=== PATIENT | male | born 1935 | race Caucasian/White ===

== ENCOUNTER 2024-05-09 20:25 | Outpatient (REF) | payer SELFPAY ==
[2024-05-10 07:29] LABS: Appearance Urine Clear; Color Urine Yellow; Glucose Urine UA Negative (Negative); Leukocyte Esterase Urine Negative (Negative); Nitrite Urine Negative (Negative); Urine Blood Negative (Negative); Urine Ketones Negative (Negative); Urine Protein Negative (Neg-Trace)
== END 2024-05-09 20:26 ==
LOC: HO.HSH3W 20:25
PROVIDERS: Visit Provider Internal Medicine Endocrinology, Diabetes & Metabolism
DX: R41.82 Altered mental status, unspecified (principal)
CPT/HCPCS: 81003

== ENCOUNTER 2024-05-10 06:56 | Outpatient (REF) | payer SELFPAY ==
[2024-05-10 07:03] LABS: MANUAL DIFF FLAG NO
[2024-05-10 07:38] LABS: Basophils Absolute Auto 0.1 X10*3/uL (0.0-0.2); Eosinophils Absolute Auto 0.3 X10*3/uL (0.0-0.4); Eosinophils Percent Auto 4.4 % (0-4); Hematocrit 37.9 % (42.0-52.0); Imm Gran Abs Auto 0.02 X10*3/uL (0.00-0.03); Imm Gran Pct Auto 0.3 % (0.0-0.4); Lymphocytes Absolute Auto 1.8 X10*3/uL (1.2-4.9); Lymphocytes Percent Auto 24.2 % (20-40); Mean Corpuscular HGB Conc 34.3 g/dl (31.0-36.0); Mean Corpuscular Hemoglobin 31.7 pg (27.0-33.0); Mean Corpuscular Volume 92.4 fL (80.0-98.0); Mean Platelet Volume 9.6 fL (9.4-12.4); Monocytes Absolute Auto 0.8 X10*3/uL (0.1-1.2); Monocytes Percent Auto 10.2 % (2-11); Neutrophils Absolute Auto 4.4 x10*3/uL (2.0-8.3); Neutrophils Percent Auto 59.9 % (45-73); Platelet Count 197 X10*3/uL (160-400); Red Cell Distribution Width 13.2 % (11.0-16.0); White Blood Count 7.4 X10*3/uL (4.8-10.8)
[2024-05-10 07:54] LABS: Alanine Aminotransferase 11 U/L (0-40); Albumin Level 3.6 g/dL (3.5-5.0); Alkaline Phosphatase 81 U/L (39-117); Anion Gap 12 (12-20); Aspartate Amino Transferase 17 U/L (5-37); Bilirubin Total 0.8 mg/dL (0.0-1.0); Blood Urea Nitrogen 10 mg/dL (9-16); Carbon Dioxide 24 mmol/L (22-29); Chloride 105 mmol/L (96-108); Cholesterol 115 mg/dL (<200); Estimated Glomerular Filt Rate > 60; Glucose Random 90 mg/dL (60-115); HDL Cholesterol 41 mg/dL (>40); LDL Cholesterol Calculated 62 mg/dL (<100); Potassium 3.9 mmol/L (3.3-5.1); Sodium 137 mmol/L (135-145); Total Protein 6.1 g/dL (6.5-8.0); Triglycerides 64 mg/dL (<150)
[2024-05-10 08:13] LABS: Prostate Specific Antigen 19.69 ng/mL (<0.05-4.0)
== END 2024-05-10 06:57 | disposition home or self-care (01) ==
LOC: HO.HSH3W 06:56
PROVIDERS: Visit Provider Internal Medicine Endocrinology, Diabetes & Metabolism
DX: Z12.5 Encounter for screening for malignant neoplasm of prostate (principal); Z13.6 Encounter for screening for cardiovascular disorders; M19.90 Unspecified osteoarthritis, unspecified site
CPT/HCPCS: 36415; 80053; 80061; 84153; 85025

== ENCOUNTER 2024-10-26 10:15 | Outpatient (REF) | payer MEDICARE, SELFPAY ==
--- NOTE | ~2024-10-26 | CT_ITS ---
EXAMINATION: CT LUMBAR SPINE WITHOUT CONTRAST CLINICAL INFORMATION: Low back pain. COMPARISON: None available. TECHNIQUE: Spiral CT imaging of the lumbar spine performed in axial plane without contrast. Multiplanar reformatted images were constructed from the axial data set. This CT examination was performed using dose optimization techniques as appropriate, variously including the following: *Automated exposure control *Adjustment of mA and/or kV according to patient size (this includes techniques or standardized protocols for targeted exams where dose is matched to indication/reason for exam; i.e. extremities or head) *Use of iterative reconstruction technique FINDINGS: There is a minimal right convex scoliosis, apex at L2. There is mild straightening of the normal lordosis. There is diffuse osteopenia. Severe compression deformity of L1, chronic, with approximately 80% loss of height, and 5 mm retropulsion of bone into the central canal. This results in mild central canal narrowing. There is kyphoplasty cement in the ventral vertebral body. L2 is intact and normal in stature. L3 demonstrates an acute appearing superior endplate compression fracture, with loss of height approximately 80% centrally, and approximately 40% at the level of the anterior and posterior endplates. There is approximately 4 mm of retropulsion of bone from the superior endplate into the central canal resulting in mild to moderate central canal stenosis. L4 demonstrates an acute appearing compression fracture with approximately 30% loss of height centrally and dorsally. There is approximately 4 mm of retropulsion of bone of the superior endplate into the central canal, resulting in moderate central canal stenosis. L5 demonstrates a minimal 10% superior endplate compression deformity, chronic. There is kyphoplasty cement within the vertebral body. Severe degenerative disc changes are present throughout the lumbar region with disc vacuum phenomenon at L2-3, L4-5, and L5-S1. There is normal facet alignment, with hypertrophic degenerative facet changes present notably at L3-S1 left greater than right. There is severe right and moderate left neural foraminal narrowing at L5-S1. CT/CT lumbar spine wo IV con IMPRESSION: 1. Acute superior endplate compression deformities of L3 and L4, with approximately 80% loss of height centrally at L3, and 30% at L4 centrally. There is mild retropulsion of the superior endplates into the central canal, resulting in mild to moderate central canal stenosis at L3, and moderate central canal stenosis at L4. 2. Chronic compression deformities of L1 and L5 with kyphoplasty cement present. 3. Osteopenia. 4. Degenerative spondylosis as detailed. Electronically signed by: Gary Gómez MD 10/26/2024 01:56 PM [facility]
--- OUTSIDE RECORDS SUMMARY | 2024-10-26 11:11 | XMS_ITS | Encounter Summary ---
Author Organization [facility] Address [address] [facility] 7 [place] [address] Care Team Providers Care Manager Revenue Name Role Phone Unavailable Primary Care Provider Unavailabl e Encounter Details Date Type Department Care Team (Late st Contact Info) Description 10/10/2024 2:00 PM EST Office Visit [facility] D[facility] [address] [place] [address] Mita Williamson [address] [place] [address] Social History Tobacco Use Types Packs/Day Years Used Date Smoking Tobacco: Unknown Tobacco Cessation:Counseling Given: Not Answered Alcohol Use Standard Drinks/Week Comments Defer 0 (1 standard drink = 0.6 oz pur e alcohol) Sex and Gender Information Value Date Recorded Sex Assigned at Male 08/31/2024 3:13 PM EST Legal Sex Male 3:12 PM EST Gender Identity Male 08/31/2024 3:13 PM EST Sexual Orientation Straight 08/31/2024 3: 13 PM EST documented as of this encounter Progress Notes * Mita Williamson - 10/10/2024 2:00 PM EST Pt did not show up for appointment. Called upstairs at 12:10 to see if patient was coming to his appointment and nurse stated that he was at music downstairs and would try and bring him downstairs. 5minutes later nurse came down to tell us Mr. Brown did not want to come to his appointment today. Will reschedule for another day Mita Williamson RDH documented in this encounter Plan of Treatment Upcoming Encounters Date Type Department Care Team (Late st Contact Info) Description 10/31/2024 11:00 AM EST Office Visit [facility] [address] [place] [address] Fredy Soliz DMD [address] [place] [address] documented as of this encounter Visit Diagnoses Not on filedocumented in this encounter
--- OUTSIDE RECORDS SUMMARY | 2024-10-26 11:11 | XMS_ITS | Clinical Summary ---
Author Organization [facility] Address [address] [facility] [address] [place] [address] Care Team Providers Care Reimbursement Director Name Role Phone Unavailable Primary Care Provider Unavailabl e Allergies No known active allergies Medications lactulose (Chronulac) 10 GM/15ML solution 10 g. 05/09/2024 Ac tive simvastatin (Zocor) 40 MG tablet 40 mg. 06/04/2024 Active alendronate (Fosamax) 70 MG tablet 70 mg. 06/25/2024 Active metoprolol succinate XL (Toprol-XL) 25 MG 24 hr tablet 25 mg. 06/25/2024 Act milady Eliquis 2.5 MG tablet 07/07/2024 Active cholecalciferol (Vitamin D-3) 25 MCG (1000 UT) capsule Take 1,000 Units by mouth Once per day. Active Encounters Date Type Department Care Team Description 10/10/2024 2:00 PM EST Office Visit [facility] DENTAL [address] [place], [place] [phone] Mita Williamson from Last 3 Months Social History Tobacco Use Types Packs/Day Years [...] Orientation Straight 08/31/2024 3: 13 PM EST Plan of Treatment Upcoming Encounters Date Type Department Care Team (Late st Contact Info) Description 10/31/2024 11:00 AM EST Office Visit [facility] DENTAL [address] [place], [place] [phone] Fredy Soliz, DMD [address] [place], [place] [phone] Health Maintenance Due Date Last Done Comments Dental Oral Exam 1937 Dental Prophylaxis 1937 Dental X-Ray: Bitewings 1937 Dental X-Ray: Full Mouth 1937 Depression Screening 1937 Lipid Panel 1937 SDOH Screening 1937 Alcohol/Substance Use Screening 1949 DTaP/Tdap/Td Vaccines (1 - Tdap) 1956 Pneumococcal Vaccine: 50+ Ye ars (1 of 1 - PCV) 12/24/1987 Zoster Vaccines (1 of 2) 12/24/1987 RSV Patients and Pa tients Aged 60 years or older (1 - 1-dose 75+ series) 2012 COVID-19 Vaccine ( - 2023-2 5 season) 2024 Influenza Vaccine (#1) 2024 Tobacco Screening 10/10/2025 10/10/2024 HIB Vaccines Aged Out No longer eligi ble based on patient's age to complete this topic HPV Vaccines Aged Out No longer eligi ble based on patient's age to complete this topic Hepatitis A Vaccines Aged Out No long er eligible based on patient's age to complete this topic Hepatitis B Vaccines Aged Out No long er eligible based on patient's age to complete this topic IPV Vaccines Aged Out No longer eligi ble based on patient's age to complete this topic Meningococcal Vaccine Aged Out No randall barbie eligible based on patient's age to complete this topic RSV under 20 months Aged Out No longe r eligible based on patient's age to complete this topic Rotavirus Vaccines Aged Out No longer eligible based on patient's age to complete this topic
== END 2024-10-26 10:16 | disposition home or self-care (01) ==
LOC: HO.CT 10:15
PROVIDERS: PCP Nurse Practitioner; Visit Provider Nurse Practitioner
DX: M54.50 Low back pain, unspecified (principal)
CPT/HCPCS: 72131

== ENCOUNTER → 2024-10-26 10:28 | Outpatient (BNV) | payer MEDICARE, SELFPAY | PROVIDERS: PCP Nurse Practitioner; Visit Provider Radiology Diagnostic Radiology | DX: S32.050A Wedge compression fracture of fifth lumbar vertebra, initial encounter for closed fracture (principal); S32.010A Wedge compression fracture of first lumbar vertebra, initial encounter for closed fracture; M85.88 Other specified disorders of bone density and structure, other site | CPT/HCPCS: 72131 ==

== ENCOUNTER 2024-11-28 13:00 | Outpatient (REF) | payer MEDICARE, SELFPAY ==
--- NOTE | ~2024-11-28 | CT_ITS ---
CLINICAL HISTORY: POST FALL CT pelvis without contrast Comparison: None Findings: No acute fracture or dislocation. Status post kyphoplasty of L5. The coccyx is angulated anteriorly. Anterior/superior subluxation of the 4th coccygeal segment relative to the 3rd by up to 6 mm, age indeterminate. Decreased bone mineralization. No osseous lesion. Bmsj-ir-ttdavmgn degenerative change. There is no joint effusion. There is no fluid collection. Mild symmetric muscular atrophy. The musculature is normal in attenuation. Severe calcified atherosclerotic disease. No acute intrapelvic pathology. Colonic diverticulosis. Impression: No acute findings. This document has been electronically signed by: Anila Newman MD on 11/29/2024 16:01:52
--- NOTE | ~2024-11-28 | CT_ITS ---
CLINICAL HISTORY: post fall CT left hip without contrast Comparison: None Findings: No fracture or dislocation. No osseous lesion. Dumf-hk-pzamufri degenerative change. There is no joint effusion. There is no fluid collection. Nchl-qd-xwwmlrcr muscular atrophy. No definitive abnormal attenuation in the musculature. Severe calcified atherosclerotic disease. Impression: No acute findings. This document has been electronically signed by: Anila Newman MD on 11/29/2024 16:07:52
--- OUTSIDE RECORDS SUMMARY | 2024-11-28 15:24 | XMS_ITS | Encounter Summary ---
Author Organization [facility] Address [address] [facility] 7 [place] [address] Care Team Providers Care Olive Pitter Name Role Phone Unavailable Primary Care Provider Unavailabl e Reason for Visit * Reason Comments Dental Exam Encounter Details Date Type Department Care Team (Late st Contact Info) Description 10/31/2024 11:00 AM EST Office Visit [facility] D[facility]AL [address] [place] [address] Fredy Soliz DMD [address] [place] [address] Social History Tobacco Use Types Packs/Day Years Used Date Smoking Tobacco: Unknown Alcohol Use Standard Drinks/Week Comments Defer 0 (1 standard drink = 0.6 oz pur e alcohol) Sex and Gender Information Value Date Recorded Sex Assigned at Male 08/31/2024 3:13 PM EST Legal Sex Male 3:12 PM EST Gender Identity Male 08/31/2024 3:13 PM EST Sexual Orientation Straight 08/31/2024 3: 13 PM EST documented as of this encounter Progress Notes * Fredy Soliz DMD - 10/31/2024 11:00 AM EST C/C: dental exam I.O.E: erythematous and edematous gingiva, gen plaque and calculus accumulation, severe broken and carious tooth#13 E.O.E: wnl OCS: wnl Head and neck: wnl Radiographic: gen moderate periodontal bone loss, severe carious tooth#13 Dx: gen chronic moderate periodontitis, 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 Tx: prophy, recall exam, exo#13 Pt does not want to have prophy and exo #13 at this time Brennon documented in this encounter Plan of Treatment Scheduled Orders Name Type Priority Associated Diagnoses Orde r Schedule 13 13 EXTRACTION, ERUPTED TOOTH OR EXPOSED ROOT (ELEVATION/FORCEPS REMOVAL) Dental Routine st arting 10/31/2024 documented as of this encounter Procedures Procedure Name Priority Date/Time Associated Diagnosis Comments INTRAORAL - COMPLETE SERIES OF RADIOGRAPHIC IMAGES Routine 10/31/2024 11:00 AM EST COMPREHENSIVE ORAL EVALUATION - NEW OR ESTABLISHED PATIENT Routine 10/31/2024 11:00 AM EST 10 PREFABRICATED POST AND CORE IN ADDITION TO CROWN Routine 10/31/2024 12:00 AM EST 8 PREFABRICATED POST AND CORE IN ADDITION TO CROWN Routine 10/31/2024 12:00 AM EST 3 PREFABRICATED POST AND CORE IN ADDITION TO CROWN Routine 10/31/2024 12:00 AM EST 19 CROWN - FULL CAST HIGH FOX METAL Routine 10/31/2024 12:00 AM EST 31 CROWN - FULL CAST HIGH FOX METAL Routine 10/31/2024 12:00 AM EST 30 CROWN - FULL CAST HIGH FOX METAL Routine 10/31/2024 12:00 AM EST 12 MOD COMPOSITE FILLING Routine 025 12:00 AM EST 28 O AMALGAM FILLING Routine 10/31/2024 12:00 AM EST 21 DO AMALGAM FILLING Routine 10/31/2024 12:00 AM EST 20 DO AMALGAM FILLING Routine 10/31/2024 12:00 AM EST 15 O AMALGAM FILLING Routine 10/31/2024 12:00 AM EST 14 MOD AMALGAM FILLING Routine 12:00 AM EST 4 MOD AMALGAM FILLING Routine 10/31/2024 12:00 AM EST 2 O AMALGAM FILLING Routine 10/31/2024 1 2:00 AM EST 10 FIXED PARTIAL DENTURE - ABUTMENT CROWN Routine 10/31/2024 12:00 AM EST 8 FIXED PARTIAL DENTURE - ABUTMENT CROWN Routine 10/31/2024 12:00 AM EST 9 FIXED PARTIAL DENTURE - PONTIC Routine 10/31/2024 12:00 AM EST 10 ROOT CANAL Routine 10/31/2024 12:00 AM EST 8 ROOT CANAL Routine 10/31/2024 12:00 AM EST 3 ROOT CANAL Routine 10/31/2024 12:00 AM EST 29 PFM CROWN Routine 10/31/2024 12:00 AM EST 7 PFM CROWN Routine 10/31/2024 12:00 AM EST 3 PFM CROWN Routine 10/31/2024 12:00 AM EST documented in this encounter Visit Diagnoses Not on filedocumented in this encounter
--- OUTSIDE RECORDS SUMMARY | 2024-11-28 15:24 | XMS_ITS | Clinical Summary ---
Author Organization [facility] Address [address] [place] [address] [address] [place] [address] Care Team Providers Care Business Communications Instructor Name Role Phone Unavailable Primary Care Provider [...] Encounters Date Type Department Care Team Description 10/31/2024 11:00 AM EST Office Visit [facility] DENTAL [address] [place] [phone] Fredy Soliz DMD 10/10/2024 2:00 PM EST Office Visit [facility] DENT[facility] [address] [place] [phone] Mita Williamson from Last 3 Months Social [...] 3: 13 PM EST Plan of Treatment Health Maintenance Due Date Last Done Comments Dental Prophylaxis 1937 Depression Screening 1937 Lipid Panel 1937 SDOH Screening 1937 Alcohol/Substance Use Screening 1949 DTaP/Tdap/Td Vaccines (1 - Tdap) 1956 Pneumococcal Vaccine: 50+ Ye ars (1 of 1 - PCV) 12/24/1987 Zoster Vaccines (1 of 2) 12/24/1987 RSV Patients and Pa tients Aged 60 years or older (1 - 1-dose 75+ series) 2012 COVID-19 Vaccine (1 - 2023-2 5 season) 2024 Influenza Vaccine (#1) 2024 Dental Oral Exam 05/01/2025 10/31/2024 Tobacco Screening 10/31/2025 10/31/2024 Dental X-Ray: Bitewings 11/01/2025 10/31/2024 Dental X-Ray: Full Mouth 11/01/2027 10/31/2024 HIB Vaccines Aged Out No longer eligi [...] on patient's age to complete this topic Procedures Procedure Name Priority Date/Time Associated Diagnosis Comments INTRAORAL - COMPLETE SERIES OF RADIOGRAPHIC IMAGES Routine 10/31/2024 11:00 AM EST COMPREHENSIVE ORAL EVALUATION - NEW OR ESTABLISHED PATIENT Routine 10/31/2024 11:00 AM EST 29 PFM CROWN Routine 10/31/2024 12:00 AM EST 28 O AMALGAM FILLING Routine 10/31/2024 12:00 AM EST 21 DO AMALGAM FILLING Routine 10/31/2024 12:00 AM EST 20 DO AMALGAM FILLING Routine 10/31/2024 12:00 AM EST 19 CROWN - FULL CAST HIGH FOX METAL Routine 10/31/2024 12:00 AM EST 15 O AMALGAM FILLING Routine 10/31/2024 12:00 AM EST 14 MOD AMALGAM FILLING Routine 12:00 AM EST 12 MOD COMPOSITE FILLING Routine 025 12:00 AM EST 10 PREFABRICATED POST AND CORE IN ADDITION TO CROWN Routine 10/31/2024 12:00 AM EST 8 PREFABRICATED POST AND CORE IN ADDITION TO CROWN Routine 10/31/2024 12:00 AM EST 10 ROOT CANAL Routine 10/31/2024 12:00 AM EST 8 ROOT CANAL Routine 10/31/2024 12:00 AM EST 7 PFM CROWN Routine 10/31/2024 12:00 AM EST 4 MOD AMALGAM FILLING Routine 10/31/2024 12:00 AM EST 10 FIXED PARTIAL DENTURE - ABUTMENT CROWN Routine 10/31/2024 12:00 AM EST 8 FIXED PARTIAL DENTURE - ABUTMENT CROWN Routine 10/31/2024 12:00 AM EST 9 FIXED PARTIAL DENTURE - PONTIC Routine 10/31/2024 12:00 AM EST 31 CROWN - FULL CAST HIGH FOX METAL Routine 10/31/2024 12:00 AM EST 30 CROWN - FULL CAST HIGH FOX METAL Routine 10/31/2024 12:00 AM EST 3 PREFABRICATED POST AND CORE IN ADDITION TO CROWN Routine 10/31/2024 12:00 AM EST 3 PFM CROWN Routine 10/31/2024 12:00 AM EST 3 ROOT CANAL Routine 10/31/2024 12:00 AM EST 2 O AMALGAM FILLING Routine 10/31/2024 1 2:00 AM EST from Last 3 Months
--- OUTSIDE RECORDS SUMMARY | 2024-11-28 15:24 | XMS_ITS | Patient Health Record ---
Author Organization [facility] Address [address] [address] Support Name Relationship Address Phone RUBY HORVATH Guarantor Unknown [phone] Allergies No Known Allergies Reason For Referral No Information Social History Tobacco Use: Social History Observation Description Date Details (start date - stop date) Former Smoker NA - NA Smoking Question Answer Notes Are you a: former smoker Section Notes: Former smoker Former smoker Former smoker Former smoker Problems Problem Type SNOMED Code ICD Code Onset Dates Problem Status W/U Status Risk Notes Problem [id number] Essential hypert ension (I10) Active confirmed Problem 948992898 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) Active confirmed Problem 04814157 Hypercholesterol emia (E78.00) Active confirmed Plan Of Treatment No Information Insurance Providers Payer Name Payer Address Payer Phone Subscriber Number Group Number Insured Name Patient Relationship to Insured Coverage Start Date Coverage End Date [facility] [employer] Plan [address] [place] [address] [id number] RUBY HORVATH Self - patient is the insured Safety Insurance [address] [address] [place] [address] [id number] RUBY HORVATH Self - patient is the insured Medical (General) History Medical History History ICD Code atrial fibrillation, hypertension, glauc dimas
== END 2024-11-28 13:01 | disposition home or self-care (01) ==
LOC: HO.CT 13:00
PROVIDERS: PCP Nurse Practitioner; Visit Provider Orthopaedic Surgery
DX: G89.11 Acute pain due to trauma (principal)
CPT/HCPCS: 72192; 73700

== ENCOUNTER → 2024-11-28 13:16 | Outpatient (BNV) | payer MEDICARE, SELFPAY | PROVIDERS: PCP Nurse Practitioner; Visit Provider Radiology Diagnostic Radiology | DX: G89.11 Acute pain due to trauma (principal); M16.0 Bilateral primary osteoarthritis of hip; M62.59 Muscle wasting and atrophy, not elsewhere classified, multiple sites | CPT/HCPCS: 72192; 73700 ==

== ENCOUNTER 2024-12-02 23:39 | Inpatient (IN) | payer OTHER, SELFPAY ==
--- NOTE | ~2024-12-02 | CT_ITS ---
CLINICAL HISTORY: dyspnea CT chest without contrast Comparison: None Findings: The heart size is normal. There is a sliding-type hiatal hernia with fluid in the esophagus up to the level of the thoracic inlet, possible reflux. The visualized thyroid and mediastinum are are otherwise unremarkable. There is bilateral consolidation, possible pneumonia or pulmonary edema. The visualized upper abdomen is unremarkable. The bones are intact. IMPRESSION: 1. Bilateral consolidation, differential considerations. 2. Sliding-type hiatal hernia with high-level high volume gastroesophageal reflux. This document has been electronically signed by: Phuc Anderson MD on 12/03/2024 05:20:19
--- NOTE | ~2024-12-02 | XR_ITS ---
CLINICAL HISTORY: dyspnea ?chf 1 view chest x-ray. Comparison: CT/SR - CT CHEST WO IV CON - 12/03/24 04:17 EDT CR - XR CHEST 1V - 12/03/24 00:35 EDT Findings: This examination is mildly limited by multiple structures overlying the patient. Ill-defined mixed interstitial/alveolar opacities are redemonstrated throughout the bilateral lungs, not significantly changed in appearance as compared to the prior exams. The heart size is borderline enlarged. No pneumothorax or significant pleural effusion identified. Impression: 1. Mixed interstitial/alveolar opacities redemonstrated throughout the bilateral lungs, not significantly changed in appearance as compared to the prior exams, possibly related to multifocal infection or pulmonary edema. Clinical correlation is advised. 2. Borderline cardiomegaly This document has been electronically signed by: Mihir Beckett MD on 12/04/2024 03:50:56
--- NOTE | ~2024-12-02 | XR_ITS ---
CLINICAL HISTORY: sob, bilateral rales 1 view chest x-ray Comparison: None Findings: Increased interstitial lung markings in both lungs. No effusion or pneumothorax. Mild cardiomegaly. No acute fracture. IMPRESSION: Bilateral increased interstitial lung markings which could be due to pulmonary edema, interstitial lung disease or infection. This document has been electronically signed by: Azeem Cortez MD on 12/03/2024 01:41:30
[2024-12-02 23:44] VITALS: O2SAT 92
[2024-12-02 23:47] VITALS: BP 121/77; PULSE 83; RESP 20; TEMP 36.8; O2SAT 89; BMI 19.7
[2024-12-02 23:55] VITALS: BP 121/77; PULSE 83; RESP 20; TEMP 36.8; O2SAT 89
--- NOTE | 2024-12-02 23:56 | ECG_ITS ---
Test Reason : SOB Blood Pressure : */* mmHG Vent. Rate : 102 BPM Atrial Rate : * BPM P-R Int : * ms QRS Dur : 88 ms QT Int : 348 ms P-R-T Axes : * -58 36 degrees QTcB Int : 453 ms Atrial fibrillation with rapid ventricular response with a competing junctional pacemaker with premature ventricular or aberrantly conducted complexes Left axis deviation Nonspecific ST abnormality Abnormal ECG No previous ECGs available Referred By: Chelita Chris Electronically Signed By: TRISTON LEUNG MD
--- NOTE | 2024-12-02 23:57 | ED_ITS ---
HPI - SOB/Dyspnea General Chief Complaint: Dyspnea Stated Complaint: SOB Time Seen by Provider: 12/02/24 23:44 Source: EMS Mode of arrival: EMS Limitations: other History of Present Illness ED Provider: Dr. Chelita Chris HPI Narrative: [facility] shortness of breath. According to the staff, patient was found to be oxygenating 89% on room air. Patient does not use oxygen at baseline, patient does not have history of asthma or COPD. Not oxygen dependent. Patient was put on 2 L of oxygen and O2 increased to 94%. Patient denies any chest pain or shortness of breath, patient states that he feels well. According to EMS, the staff at the correction did not report any fever. Patient is poor historian, can not give significant history, but states that he feels well. Related Data Allergies Allergy/AdvReac Type Severity Reaction Status Date / Time No Known Allergies Allergy Verified 12/02/24 23:55 Review of Systems 2 Review of Systems: Yes Other ( Poor historian) [facility] Past Medical History Medical History Hx of retirement use of blood thinners Prostate cancer Macular degeneration Hyperlipidemia Osteoporosis Hypertension Atrial fibrillation with RVR Social History Social History Smoked in Last 30 Days: No Use of substances other than those prescribed or required for medical reasons: No Advance Directives: No Advance Directives Information Provided: No Do you have a plan to hurt others: No Plan Physical Exam 2 Vital Signs: Vital Signs: Last Vital Signs Temp 98.3 F 12/02/24 23:55 Pulse 83 12/02/24 23:55 Resp 20 12/02/24 23:55 BP 121/77 12/02/24 23:55 Pulse Ox 89 L 12/02/24 23:55 O2 Del Method Room Air 12/02/24 23:55 BMI result Body Mass Index 19.7 Const: Other: Appearance: Alert. Oriented X1. No acute distress. Eyes: Pupils equal, round and reactive to light. ENT: Pharynx normal. Neck: Normal inspection. Neck supple. No lymph nodes noted. No crepitus CVS: Normal heart rate and rhythm. Pulses normal. Normal S1 and S2 Respiratory: No respiratory distress. bilateral rales, no wheezing Abdomen: Soft and nontender. No rigidity. No distention. Skin: Skin warm and dry. Normal skin color. Normal skin turgor. Extremities: No lower extremity edema. No Lacerations. No Rash Neuro: Oriented X 1. No motor deficit. No sensory deficit. Moving all extremities. No slurred speech. CN 2 through 12 grossly intact Psych: calm, cooperative, normal affect Course Course Course Narrative: on arrival, patient's oxygen saturation 89% on room air. Patient on 2 L of oxygen. On physical exam, patient has bilateral rales, patient receiving empirically IV fluids, ceftriaxone and azithromycin, No history of CHF per patient's paperwork from the correction All of patient's labs and imaging pending. Medications Administered Discontinued Medications Generic Name Dose Route Start Last Admin Trade Name Freq PRN Reason Stop Dose Admin Ceftriaxone Sodium 1 gm 12/02/24 23:55 12/03/24 00:25 Ceftriaxone Sodium 1 Gm Vial IVPUSH 12/02/24 23:56 1 gm ONCE ONE Administration Sodium Chloride 2,000 mls @ 999 mls/hr 12/02/24 23:55 12/03/24 00:37 Ns IVCONT 12/03/24 01:55 999 mls/hr .Q2H1M ONE Administration Azithromycin 500 mg/ Sodium 250 mls @ 125 mls/hr 12/02/24 23:55 12/03/24 00:36 Chloride IV 12/03/24 01:54 125 mls/hr ONCE ONE Administration Medical Decision Making Medical Decision Making [facility] Narrative: my interpretation of EKG: Atrial fibrillation, heart rate 102, no ST segment depression or elevation, occasional PVCs, QTC 453. It was noted that patient's oxygen saturation is 89% on room air. Patient is not oxygen dependent. No history of asthma or COPD. My interpretation of labs: Patient's white blood cell count 19.1, no significant chemistry abnormality, normal LFTs, normal troponin, BNP 366, no previous labs for comparison. Magnesium 2.0. Venous blood gases within normal limits. Lactic acid 1.2, serology negative. At this time, 01:51, chest x-rays have returned, possible pulmonary edema versus congestion versus pneumonia On arrival, patient received IV fluids, IV antibiotics, azithromycin and ceftriaxone. Patient does not have history of CHF. However, based on lab findings with the BNP above 300 in chest x-ray showed will possible vascular congestion, it is possible that patient may have a new diagnosis. patient's oxygen saturation 89% on room air, improves to mid 90s on 2 L I was informed by the patient's nurse that so far the patient has received 1 L of fluids. The 2 L has not started yet. We will go ahead and stop there. patient was given a small dose of Lasix, 10 mg IV Patient has not had any episodes of hypotension, no fever, normal lactic acid, normal LFTs and creatinine. Sepsis is not suspected. Differential Diagnosis Differential Diagnoses: The differential diagnosis associated with the presentation includes ( pneumonia, CHF, viral syndrome) Admission/Observation Consideration of admission/observation: Escalation of care including admission/observation considered Consult Healthcare Provider Management of the patient was discussed with: Hospitalist Lab Data MDM Lab Attestation statement: I reviewed the patient's lab results. 12/03/24 00:04 12/03/24 00:04 Labs: Lab Results 12/03/24 12/03/24 12/03/24 Range/Units 00:04 00:28 00:53 WBC 19.1 H (4.8-10.8) X10*3/uL RBC 3.97 L (4.60-5.80) X10*6/uL Hgb 12.5 L (14.0-18.0) g/dl Hct 36.4 L (42.0-52.0) % MCV 91.7 (80.0-98.0) fL MCH 31.5 (27.0-33.0) pg MCHC 34.3 (31.0-36.0) g/dl RDW 14.1 (11.0-16.0) % Plt Count 275 D (160-400) X10*3/uL MPV 8.5 L (9.4-12.4) fL Immature Gran % (Auto) 0.6 H (0.0-0.4) % Neut % (Auto) 90.8 H (45-73) % Lymph % (Auto) 2.4 L (20-40) % [place] % (Auto) 6.0 (2-11) % Eos % (Auto) 0.0 (0-4) % Baso % (Auto) 0.2 (0-2) % Lymph # (Auto) 0.5 L (1.2-4.9) X10*3/uL [place] # (Auto) 1.1 (0.1-1.2) X10*3/uL Eos # (Auto) 0.0 (0.0-0.4) X10*3/uL Baso # (Auto) 0.0 (0.0-0.2) X10*3/uL Abs Immat Gran (auto) 0.12 H (0.00-0.03) X10*3/uL Absolute Neuts (auto) 17.4 H (2.0-8.3) x10*3/uL Absolute Nucleated RBC 0.000 (0.0-0.012) X10*3/uL Nucleated RBC % (auto) 0.0 (0.0-0.2) /100WBC Smear Tech's Comments VERIFIED VBG pH 7.41 (7.32-7.43) VBG pCO2 33 mmHg VBG pO2 74 mmHg VBG HCO3 21 L (22-26) mmol/L VBG O2 Saturation 96.0 % VBG Base Excess -2.2 mmol/L Sodium 135 (135-145) mmol/L Potassium 4.1 (3.3-5.1) mmol/L Chloride 105 (96-108) mmol/L Carbon Dioxide 21 L (22-29) mmol/L Anion Gap 13 (12-20) BUN 18 H (9-16) mg/dL Creatinine 0.63 (0.5-1.4) mg/dL Estim Creat Clear Calc 78.3 Estimated GFR > 60 Random Glucose 116 H (60-115) mg/dL Lactic Acid 1.2 (0.5-2.0) mmol/L Calcium 8.7 (8.4-10.2) mg/dL Magnesium 2.0 (1.6-2.6) mg/dL Total Bilirubin 1.5 H (0.0-1.0) mg/dL Direct Bilirubin 0.5 (0.0-0.5) mg/dL AST 22 (5-37) U/L ALT 9 (0-40) U/L Alkaline Phosphatase 128 H (39-117) U/L Troponin I High Sens 7.6 (<3.5-35.0) ng/L B-Natriuretic Peptide 366 H (<100) pg/mL Total Protein 7.4 (6.5-8.0) g/dL Albumin 4.0 (3.5-5.0) g/dL Influenza Type A (PCR) NEGATIVE (Negative) Influenza Type B (PCR) NEGATIVE (Negative) RSV RNA Qual (PCR) NEGATIVE (Negative) SARS-CoV-2 RNA (RT-PCR) NEGATIVE (Negative) Independent Interpretation I performed an independent interpretation of an: EKG and Plain X-Ray Radiology Impression Discussion of test interpretation with radiology: I have reviewed the radiologist's reading. Critical Care Time Critical Care Time Critical Care Time: Yes Total Critical Care Time: 60 Attestation: I have personally provided critical care time. Time includes review of lab data, radiology results, discussion with consultants, and monitoring for potential decompensation. Intervention performed as documented. Discharge Plan Discharge Clinical Impression: New onset of congestive heart failure, Pneumonia Patient Disposition: Admitted As Inpatient Print Language: Ecuadorean
[2024-12-03] MEDS: cefTRIAXone sodium 1 GM VIAL IVPUSH (00:25)
[2024-12-03 00:36] LABS: Lactic Acid 1.2 mmol/L (0.5-2.0)
[2024-12-03] MEDS: Azithromycin 500 MG in 0.9 % Sodium Chloride 250 ML 125 MG IV ×2 (00:36→20:44)
[2024-12-03 00:37] LABS: Alanine Aminotransferase 9 U/L (0-40); Alkaline Phosphatase 128 U/L (39-117); Anion Gap 13 (12-20); Aspartate Amino Transferase 22 U/L (5-37); Bilirubin Direct 0.5 mg/dL (0.0-0.5); Bilirubin Total 1.5 mg/dL (0.0-1.0); Blood Urea Nitrogen 18 mg/dL (9-16); Calcium 8.7 mg/dL (8.4-10.2); Carbon Dioxide 21 mmol/L (22-29); Chloride 105 mmol/L (96-108); Creatinine Clr Calc Pharmacy 78.3; Estimated Glomerular Filt Rate > 60; Glucose Random 116 mg/dL (60-115); Potassium 4.1 mmol/L (3.3-5.1); Sodium 135 mmol/L (135-145); Total Protein 7.4 g/dL (6.5-8.0)
[2024-12-03] MEDS: 0.9 % Sodium Chloride 2,000 ML 999 ML IVCONT (00:37)
[2024-12-03 00:40] LABS: B Type Natriuretic Peptide 366 pg/mL (<100); Troponin-I High Sensitivity 7.6 ng/L (<3.5-35.0)
[2024-12-03 00:56] LABS: Venous Blood Gas Refer to POC result
[2024-12-03 00:57] LABS: VBG Base Excess -2.2 mmol/L; VBG HCO3 21 mmol/L (22-26); VBG pCO2 33 mmHg; VBG pH 7.41 (7.32-7.43); VBG pO2 74 mmHg
--- NOTE | 2024-12-03 01:07 | PC.NURSE ---
labs delayed. lab contacted. vials sent not received per lab. new vials sent
[2024-12-03 01:08] LABS: Basophils Percent Auto 0.2 % (0-2); Hematocrit 36.4 % (42.0-52.0); Hemoglobin 12.5 g/dl (14.0-18.0); Imm Gran Abs Auto 0.12 X10*3/uL (0.00-0.03); Imm Gran Pct Auto 0.6 % (0.0-0.4); Lymphocytes Absolute Auto 0.5 X10*3/uL (1.2-4.9); Lymphocytes Percent Auto 2.4 % (20-40); MANUAL DIFF FLAG SCAN; Mean Corpuscular HGB Conc 34.3 g/dl (31.0-36.0); Mean Corpuscular Hemoglobin 31.5 pg (27.0-33.0); Mean Corpuscular Volume 91.7 fL (80.0-98.0); Mean Platelet Volume 8.5 fL (9.4-12.4); Monocytes Absolute Auto 1.1 X10*3/uL (0.1-1.2); Neutrophils Absolute Auto 17.4 x10*3/uL (2.0-8.3); Neutrophils Percent Auto 90.8 % (45-73); Platelet Count 275 X10*3/uL (160-400); Red Blood Count 3.97 X10*6/uL (4.60-5.80); Red Cell Distribution Width 14.1 % (11.0-16.0); SCAN SMEAR FLAG 1; White Blood Count 19.1 X10*3/uL (4.8-10.8)
[2024-12-03 01:11] LABS: Influenza A PCR NEGATIVE (Negative); Influenza B PCR NEGATIVE (Negative); Resp Syncy Virus RNA Qual PCR NEGATIVE (Negative); SARS COV2 PCR INHOUSE NEGATIVE (Negative)
[2024-12-03 01:33] LABS: SLIDE REVIEW VERIFIED
[2024-12-03 02:18] VITALS: BP 122/75
[2024-12-03] MEDS: Furosemide 20 MG/2 ML VIAL 10 MG IVPUSH (02:18)
[2024-12-03 02:19] VITALS: BP 129/60; PULSE 104; RESP 16; O2SAT 95
--- NOTE | 2024-12-03 05:54 | P.HPHOSP_ITS ---
History of Present Illness Date of Service: 12/03/24 Attending physician on admission: Miranda Rosenthal Chief Complaint: SOB, AMS Patient is an 88-year-old male with a past medical history significant for prostate cancer, HLD, HTN and chronic AFib, who presented to the ED due to shortness of breath and [facility] He reported his oxygen saturations in the 80s on room air. No fever, chills, nausea or vomiting. The patient is very hard of hearing and also altered therefore his history was difficult to obtain. He denies any LE edema, abdominal pain or urinary symptoms including frequency, urgency or dysuria. He states overall he is feeling well. Review of Systems 2 Constitutional: Constitutional: Denies chills, Denies fatigue, Denies fever(s) and Denies headache(s) Eyes: Eyes: Denies change in vision and Denies photophobia ENT: Denies headache(s), Denies nasal congestion and Denies nasal discharge Cardiovascular: Cardiovascular: Denies chest pain, Denies rapid heart rate, Denies leg edema, Denies lightheadedness and Reports dyspnea Respiratory: Respiratory: Denies chest congestion, Denies cough, Reports dyspnea and Denies wheezing Gastrointestinal: Gastrointestinal: Denies diarrhea, Denies nausea and Denies vomiting Genitourinary: Genitourinary: Denies difficulty urinating, Denies dysuria and Denies urinary urgency Musculoskeletal: Musculoskeletal: Denies myalgias Integumentary/Breasts: Skin/Breast: Denies rash Neurologic: Reports confusion and Denies headache(s) Psychiatric: Psychiatric: Reports confusion Endocrine: Endocrine: Denies fatigue Hematologic/Lymphatic: Hematologic/Lymphatic: Denies easy bleeding and Denies easy bruising Allergic/Immunologic: Allergic/Immunologic: Denies wheezing [facility] Medical History Hx of shelter use of blood thinners Prostate cancer Macular degeneration Hyperlipidemia Osteoporosis Hypertension Atrial fibrillation with RVR Social History Smoked in Last 30 Days: No Use of substances other than those prescribed or required for medical reasons: No Advance Directives: No Advance Directives Information Provided: No Do you have a plan to hurt others: No Plan Meds Allergies Allergy/AdvReac Type Severity Reaction Status Date / Time No Known Allergies Allergy Verified 12/02/24 23:55 Active Medications: Current Medications Acetaminophen (Acetaminophen 325 Mg Tablet) 650 mg PO Q6H PRN PRN Reason: Pain, Mild 1-3,fever,headache Benzonatate (Benzonatate 100 Mg Capsule) 100 mg PO TID PRN PRN Reason: Cough Calcium Carbonate (Calcium Carbonate 750 Mg Tab.Chew) 750 mg PO Q4H PRN PRN Reason: Heartburn Ceftriaxone Sodium (Ceftriaxone Sodium 1 Gm Vial) 1 gm IVPUSH Q24H KRISTOFER Azithromycin 500 mg/ Sodium (Chloride) 250 mls @ 125 mls/hr IV Q24H KRISTOFER Magnesium Hydroxide (Milk Of Magnesia 30 Ml Oral.Susp) 30 ml PO DAILY PRN PRN Reason: Constipation Melatonin (Melatonin 3 Mg Tablet) 6 mg PO BEDTIME PRN PRN Reason: Insomnia Ondansetron HCl (Ondansetron Hcl 4 Mg/2 Ml Vial) 4 mg IVPUSH Q8H PRN PRN Reason: Nausea and Vomiting Sodium Chloride (0.9 % Sodium Chloride Flush 3 Ml Syringe) 3 ml IVFLUSH QSHIFT [facility] Physical Exam 2 Vital Signs and Narrative: Vital Signs: Last Vital Signs Temp 98.3 F 12/02/24 23:55 Pulse 104 H 12/03/24 02:19 Resp 16 12/03/24 02:19 BP 129/60 12/03/24 02:19 Pulse Ox 2 L 12/03/24 02:19 O2 Del Method Nasal Cannula 12/03/24 02:19 O2 Flow Rate 2 12/03/24 02:19 BMI result Body Mass Index 19.7 General: A not oriented to place or time, no acute distress Resp: rhonchorus bilaterally with crackles bilaterally, no wheezing CVS:regular rate, irregular rhythm GI: +BS, NT, no distention Skin: Warm, dry Neuro: Cranial nerves II-XII grossly intact bilaterally. Motor grossly intact bilaterally Extremities: No LE edema Psych: Appropriate affect Const: General: confusion Orientation/consciousness: confusion Eyes: Direct Ophthalmoscopy: No photophobia Neuro: General: confusion Results Labs 12/03/24 05:58 12/03/24 00:04 Labs: Laboratory Results - last 24 hr 12/03/24 12/03/24 12/03/24 00:04 00:28 00:53 MCV 91.7 MCH 31.5 MCHC 34.3 RDW 14.1 Plt Count 275 D MPV 8.5 L Immature Gran % (Auto) 0.6 H Neut % (Auto) 90.8 H Lymph % (Auto) 2.4 L [place] % (Auto) 6.0 Eos % (Auto) 0.0 Baso % (Auto) 0.2 Lymph # (Auto) 0.5 L [place] # (Auto) 1.1 Eos # (Auto) 0.0 Baso # (Auto) 0.0 Abs Immat Gran (auto) 0.12 H Absolute Neuts (auto) 17.4 H Absolute Nucleated RBC 0.000 Nucleated RBC % (auto) 0.0 Smear Tech's Comments VERIFIED VBG pH 7.41 VBG pCO2 33 VBG pO2 74 VBG HCO3 21 L VBG O2 Saturation 96.0 VBG Base Excess -2.2 Anion Gap 13 Estim Creat Clear Calc 78.3 Estimated GFR > 60 Random Glucose 116 H Lactic Acid 1.2 Calcium 8.7 Magnesium 2.0 Total Bilirubin 1.5 H Direct Bilirubin 0.5 AST 22 ALT 9 Alkaline Phosphatase 128 H B-Natriuretic Peptide 366 H Total Protein 7.4 Albumin 4.0 Influenza Type A (PCR) NEGATIVE Influenza Type B (PCR) NEGATIVE RSV RNA Qual (PCR) NEGATIVE SARS-CoV-2 RNA (RT-PCR) NEGATIVE Assessment and Plan (1) Acute hypoxic respiratory failure: Status: Acute (2) Pneumonia: Status: Acute (3) Metabolic encephalopathy: Status: Acute Plan Patient is an 88-year-old male with a past medical history significant for prostate cancer, HLD, HTN and chronic AFib, who presented to the ED due to shortness of breath and [facility]. Acute hypoxic respiratory failure and metabolic encephalopathy secondary to pneumonia - WBC 19.2, mild tachycardia secondary to chronic AFib, lactic acid normal, blood cultures x2 pending, not sepsis - chest x-ray with edema versus infection bilaterally - chest CT again with bilateral consolidation, possible pneumonia or pulmonary edema - troponin negative - EKG with AFib with RVR, rate 102 - COVID/flu/RSV negative - BNP 366, no lower extremity edema - given 1L NS in ED followed by 10mg IV lasix after results back indicating more likely infectious than new onset CHF - started on ceftriaxone and azithromycin, continue - monitor CBC and BMP Chronic AFib - EKG with RVR, rate 102 as above - continue metoprolol 25mg daily and Eliquis 2.5 mg BID HLD - continue statin HTN - continue metoprolol and lisinopril Med rec not complete upon admission Full code VTE prophylaxis: Eliquis Patient with acute hypoxic respiratory failure and metabolic encephalopathy secondary to pneumonia, requiring admission for at least 2 midnight stay for IV antibiotics and monitoring. Quality Stroke Does the patient have a stroke diagnosis?: No VTE Prior VTE?: No VTE Risk Level:: Medical - moderate - high VTE Device Contraindication: Treatment Not Indicated VTE Drug Contraindication: N/A - Med Ordered
[2024-12-03 06:01] LABS: MANUAL DIFF FLAG NO
[2024-12-03 06:04] LABS: Basophils Percent Auto 0.2 % (0-2); Hematocrit 37.1 % (42.0-52.0); Hemoglobin 12.9 g/dl (14.0-18.0); Imm Gran Abs Auto 0.14 X10*3/uL (0.00-0.03); Imm Gran Pct Auto 0.7 % (0.0-0.4); Lymphocytes Absolute Auto 1.1 X10*3/uL (1.2-4.9); Lymphocytes Percent Auto 5.3 % (20-40); Mean Corpuscular HGB Conc 34.8 g/dl (31.0-36.0); Mean Corpuscular Hemoglobin 32.2 pg (27.0-33.0); Mean Corpuscular Volume 92.5 fL (80.0-98.0); Mean Platelet Volume 8.7 fL (9.4-12.4); Monocytes Percent Auto 4.8 % (2-11); Neutrophils Absolute Auto 18.2 x10*3/uL (2.0-8.3); Platelet Count 285 X10*3/uL (160-400); Red Blood Count 4.01 X10*6/uL (4.60-5.80); Red Cell Distribution Width 14.5 % (11.0-16.0); White Blood Count 20.5 X10*3/uL (4.8-10.8)
[2024-12-03 06:13] LABS: Anion Gap 14 (12-20); Blood Urea Nitrogen 16 mg/dL (9-16); Calcium 8.2 mg/dL (8.4-10.2); Carbon Dioxide 21 mmol/L (22-29); Chloride 106 mmol/L (96-108); Creatinine Clr Calc Pharmacy 78.3; Estimated Glomerular Filt Rate > 60; Glucose Random 130 mg/dL (60-115); Sodium 137 mmol/L (135-145)
[2024-12-03 06:22] VITALS: TEMP 37.6
--- NOTE | 2024-12-03 06:30 | PC.NURSE ---
med list faxed to pharmacy by sr community manager
--- NOTE | 2024-12-03 07:27 | PHA.MEDREC ---
Pharmacy Consult ? Medication Reconciliation Pharmacy has completed the medication reconciliation. Utilized list from [facility].
--- NOTE | 2024-12-03 07:39 | PC.NURSE ---
status update on patient provided to pt's son (sayda) at this time.
--- NOTE | 2024-12-03 09:22 | MHC.CM.PN ---
CM attempted to meet with Patient at bedside, in the ED, but Patient was not able to respond appropriately to CM's questions. CM called Primary Contact/Son/Jesus @ [phone] and addressed IMM with him (the original will be mailed certified letter to Jesus and a copy will be placed on the chart). Patient is a LTC Resident of [facility] and returning there is the goal at time of dc. CM has initiated and will follow for dc planning. Patient will require BLS transport at dc.
--- NOTE | 2024-12-03 11:45 | PC.NURSE ---
Report received from GAEL Gordon. Taken over care at this time.
--- NOTE | 2024-12-03 12:44 | P.PNIM_ITS ---
Subjective Subjective Date of Service: 12/04/24 Interval History: f/u on acute hypoxic resp failure due pneumonia likely aspriation type, he's confused somnolent, overnight, he became more hypoxix, CXR and BNP suggestive of pulmonary edema and given IV Lasix, he failed swallow eval yesterday with overt signs of aspiration Physical Exam 2 Vital Signs: Vital Signs: Last Vital Signs Temp 99.6 F 12/03/24 06:22 Pulse 104 H 12/03/24 02:19 Resp 16 12/03/24 02:19 BP 129/60 12/03/24 02:19 Pulse Ox 95 12/03/24 02:19 O2 Del Method Nasal Cannula 12/03/24 02:19 O2 Flow Rate 1 12/03/24 02:19 BMI result Body Mass Index 19.7 Const: Other: General: minimally responsive, confused, Resp: rales at bases CVS: S1,S2,RRR GI: +BS, NT, no distention Skin: No rash Neuro: no deficit Psych: flat affect Objective Data Active Medications Acetaminophen (Acetaminophen 325 Mg Tablet) 650 mg PO Q6H PRN PRN Reason: Pain, Mild 1-3,fever,headache Benzonatate (Benzonatate 100 Mg Capsule) 100 mg PO TID PRN PRN Reason: Cough Calcium Carbonate (Calcium Carbonate 750 Mg Tab.Chew) 750 mg PO Q4H PRN PRN Reason: Heartburn Ceftriaxone Sodium (Ceftriaxone Sodium 1 Gm Vial) 1 gm IVPUSH Q24H KRISTOFER Azithromycin 500 mg/ Sodium (Chloride) 250 mls @ 125 mls/hr IV Q24H KRISTOFER Magnesium Hydroxide (Milk Of Magnesia 30 Ml Oral.Susp) 30 ml PO DAILY PRN PRN Reason: Constipation Melatonin (Melatonin 3 Mg Tablet) 6 mg PO BEDTIME PRN PRN Reason: Insomnia Ondansetron HCl (Ondansetron Hcl 4 Mg/2 Ml Vial) 4 mg IVPUSH Q8H PRN PRN Reason: Nausea and Vomiting Sodium Chloride (0.9 % Sodium Chloride Flush 3 Ml Syringe) 3 ml IVFLUSH QSHIFT [facility] Last Admin: 12/03/24 07:29 Dose: Not Given Documented By: ADALBERTO Non-Admin Reason: Patient Asleep Labs 12/04/24 03:13 12/04/24 03:13 Labs: Laboratory Results - last 24 hr 12/03/24 12/03/24 12/03/24 00:04 00:28 00:53 MCV 91.7 MCH 31.5 MCHC 34.3 RDW 14.1 Plt Count 275 D MPV 8.5 L Immature Gran % (Auto) 0.6 H Neut % (Auto) 90.8 H Lymph % (Auto) 2.4 L [place] % (Auto) 6.0 Eos % (Auto) 0.0 Baso % (Auto) 0.2 Lymph # (Auto) 0.5 L [place] # (Auto) 1.1 Eos # (Auto) 0.0 Baso # (Auto) 0.0 Abs Immat Gran (auto) 0.12 H Absolute Neuts (auto) 17.4 H Absolute Nucleated RBC 0.000 Nucleated RBC % (auto) 0.0 Smear Tech's Comments VERIFIED VBG pH 7.41 VBG pCO2 33 VBG pO2 74 VBG HCO3 21 L VBG O2 Saturation 96.0 VBG Base Excess -2.2 Anion Gap 13 Estim Creat Clear Calc 78.3 Estimated GFR > 60 Random Glucose 116 H Lactic Acid 1.2 Calcium 8.7 Magnesium 2.0 Total Bilirubin 1.5 H Direct Bilirubin 0.5 AST 22 ALT 9 Alkaline Phosphatase 128 H B-Natriuretic Peptide 366 H Total Protein 7.4 Albumin 4.0 Influenza Type A (PCR) NEGATIVE Influenza Type B (PCR) NEGATIVE RSV RNA Qual (PCR) NEGATIVE SARS-CoV-2 RNA (RT-PCR) NEGATIVE 12/03/24 05:58 MCV 92.5 MCH 32.2 MCHC 34.8 RDW 14.5 Plt Count 285 MPV 8.7 L Immature Gran % (Auto) 0.7 H Neut % (Auto) 89.0 H Lymph % (Auto) 5.3 L [place] % (Auto) 4.8 Eos % (Auto) 0.0 Baso % (Auto) 0.2 Lymph # (Auto) 1.1 L [place] # (Auto) 1.0 Eos # (Auto) 0.0 Baso # (Auto) 0.0 Abs Immat Gran (auto) 0.14 H Absolute Neuts (auto) 18.2 H Absolute Nucleated RBC 0.000 Nucleated RBC % (auto) 0.0 Smear Tech's Comments VBG pH VBG pCO2 VBG pO2 VBG HCO3 VBG O2 Saturation VBG Base Excess Anion Gap 14 Estim Creat Clear Calc 78.3 Estimated GFR > 60 Random Glucose 130 H Lactic Acid Calcium 8.2 L Magnesium Total Bilirubin Direct Bilirubin AST ALT Alkaline Phosphatase B-Natriuretic Peptide Total Protein Albumin Influenza Type A (PCR) Influenza Type B (PCR) RSV RNA Qual (PCR) SARS-CoV-2 RNA (RT-PCR) Assessment and Plan (1) Chronic a-fib: Status: Acute (2) Pneumonia: Status: Acute (3) Acute hypoxic respiratory failure: Status: Acute Plan Patient is an 88-year-old male with a past medical history significant for prostate cancer, HLD, HTN and chronic AFib, who presented to the ED due to shortness of breath and [facility]. Acute hypoxic respiratory failure and metabolic encephalopathy secondary to pneumonia and Heart failure, wbc 19 now 17 was oon ceftriaxone and Azithro, Ceftriaxone changed to Zosyn, continue monitoring wbc, GEAR INSPECTOR following Acute on chronic heart failure given IV lasix overnight echo requestest follow i/o, bmp Chronic AFib continue metoprolol eliquis if able to take po HLD continue statin HTN, BP on normal side, can resume oral metoprolol and lisinopril when taking meds by mouth if excessively high then IV meds Prognosis is guarded, discussed with son over the phone, he will be available in person for [facility] of care conversation Full code VTE prophylaxis: John obando Quality Stroke Does the patient have a stroke diagnosis?: No VTE Prior VTE?: No VTE Risk Level:: Medical - moderate - high VTE Device Contraindication: Treatment Not Indicated VTE Drug Contraindication: N/A - Med Ordered
[2024-12-03] MEDS: Apixaban 2.5 MG TABLET PO (13:53)
--- NOTE | 2024-12-03 13:55 | PC.NURSE ---
medicated the pt with his Eliquis pt choked on the water, coughing and needed to be suctioned, hospitalist aware of this event float rn
[2024-12-03 14:53] VITALS: PULSE 118; RESP 24; TEMP 36.5; O2SAT 89
--- NOTE | 2024-12-03 15:03 | PC.NURSE ---
Pt. changed and positioned sitting up in bed at this time. Pt. linen and gown changed. Assisted by entry level installation technician.
--- NOTE | 2024-12-03 15:10 | MHC.SL.SWA ---
Speech Pathologist Impression: Significant pharyngeoesophageal dysphagia, mild oral phase dysphagia. Suggest GI consultation. Risk of Aspiration Due to: Reduced Cognition Dysphasia Diet Status: Liquid Consistency and Strategies for Safe Swallow: Liquid Intake Recommendation: NPO Liquid Intake Strategies: Solid Food Consistency: Dietary Recommendations: NPO Additional Modifications to Solid Foods: Oral Medication Intake: NPO Please contact the pharmacy regarding appropriate crushable or liquid drug formulations that are available whenever modified delivery is recommended. Compensatory Strategies and Precautions to be Taken for Safe Swallow: Supervision While Eating and Drinking for Safe Swallow: PO with [employer] Foods to Avoid: Swallowing Recommended Treatments: Compens. Strategy Educat. Recommendation for Speech: Inpatient Speech Therapy Comment: Admission dx: 'Acute hypoxic respiratory failure and metabolic encephalopathy secondary to pneumoniam'. Pt unable to tolerate PO trials of water/[place] d/t immediate regurgitation of material/mucous. [employer] following closely, will re-assess as appropriate Frequency/Duration: Daily M-F Date Range for Service Req: Timeline to reassess: Neuropsychiatric Aide Clinican/Clinical Fellow: No Supervisory Statement: I have reviewed and agree with the student/clinical fellow's documentation: N/A Speech Language Pathologist: Denise Kahn M.S., CCC-[employer]
[2024-12-03] MEDS: Piperacillin Sodium/Tazobactam 4.5 GM in 0.9 % Sodium Chloride 100 ML IV ×2 (15:40→23:13)
[2024-12-03] MEDS: 0.9 % Sodium Chloride Flush 3 ML SYRINGE IVFLUSH (16:48)
--- NOTE | 2024-12-03 19:53 | PC.NURSE ---
Spoke to discharge specialist, that pt. has been AMS since RN has taken over care. Pt. refusing to keep oxygen on and is sating at 88-90% becuase he continues to take off oxygen. Pt. then keeps screaming that he is thirsty and have informed pt. many times that he is not allowed to eat or drink anything at tis time.
--- NOTE | 2024-12-03 19:55 | PC.NURSE ---
Family at [facility], informed them on plan of care and awaiting of bed. Informed them that video monitor is on d/t pt. taken off monitor leads and oxygen.
[2024-12-03 20:09] VITALS: BP 162/90; PULSE 101; RESP 15; TEMP 36.8; O2SAT 95
--- NOTE | 2024-12-03 20:11 | MHC.EDTECH ---
This pct assumed care of Patient at 1900 ,Patient was soiled with small of stool and urine ,Bed bath given ,all linen change including gown ,Patient did had a [place] cath on ,But removed it ,New [place] cath was Place ,600 ml urine empty from Ascencio bag ,Patient was offered fluids ,but refused ,mouth care done ,all safety measure in Place ,Patient watching television .
[2024-12-03] MEDS: LORazepam 2 MG/ML VIAL 1 MG IVPUSH (20:44)
--- NOTE | 2024-12-03 22:51 | PC.NURSE ---
RT at bedside suctioning pt.
--- NOTE | 2024-12-03 23:42 | PC.NURSE ---
Report given to GAEL Barraza.
[2024-12-03 23:55] VITALS: BP 170/81; PULSE 98; RESP 27; TEMP 38.3; O2SAT 94
[2024-12-03] MEDS: Metoprolol Tartrate 5 MG/5 ML VIAL IVPUSH (23:57)
--- NOTE | 2024-12-03 23:58 | PC.NURSE ---
Report taken from Liane RN assumed care of pt at his time. Pt found to be tachypneic, tachycardic afib on monitor and labored breathing. Wet breath sounds noted. RT called, hospitalist notified. Metoprolol IVP ordered and admin per NOV HR decreased to 97-106. Hospitalist to bedside, new orders placed. Pt also found to be febrile. RT at bedside deep suctioning at this time.
[2024-12-04] VITALS (10 sets, daily range): BP systolic 106–169; BP diastolic 57–100; PULSE 73–110; RESP 17–38; TEMP 36.1–37.7; O2SAT 93–98
--- NOTE | 2024-12-04 00:03 | PC.NURSE ---
Pt recommended to be NPO by speech therapy this afternoon- diet order never changed Galo notified, new order for NPO in system.
[2024-12-04] MEDS: 0.9 % Sodium Chloride Flush 3 ML SYRINGE IVFLUSH ×4 (00:06→20:50)
--- NOTE | 2024-12-04 00:11 | PC.NURSE ---
Pt deep suctioned by RT with minimal relief. Pt remains tachypneic with increased WOB. SpO2 93% on 2L oxymask. RR 38. Hospitalist aware.
[2024-12-04 00:27] LABS: Venous Blood Gas Refer to POC result
[2024-12-04 00:35] LABS: VBG Base Excess -0.7 mmol/L; VBG HCO3 23 mmol/L (22-26); VBG pCO2 36 mmHg; VBG pH 7.41 (7.32-7.43); VBG pO2 85 mmHg
[2024-12-04 00:43] LABS: Lactic Acid 2.3 mmol/L (0.5-2.0)
[2024-12-04 00:46] LABS: B Type Natriuretic Peptide 967 pg/mL (<100)
[2024-12-04] MEDS: Acetaminophen 1,000 MG/100 ML PIGGYBACK 400 MG IV (00:50)
--- NOTE | 2024-12-04 01:01 | PM.EVENT ---
Event Note Date of Service: 12/04/24 Event Note: Nurse reported increasing oxygen requirements. Dyspnea and tachypnea noted on exam. Bilateral crackles present. Obtain labs, BNP found to be elevated. Will give 1 dose of IV Lasix 40 mg. Chest x-ray with cardiomegaly and pulmonary edema. Obtaining echo Time Spent With Patient Time: Total time managing care of this patient today ____ minutes.
[2024-12-04] MEDS: Furosemide 40 MG/4 ML VIAL IVPUSH (02:15)
--- NOTE | 2024-12-04 02:22 | PC.NURSE ---
Pt resting in bed responsive to painful stimuli only, wet breath sounds and increased WOB persist, hospitalist aware. Medicated with lasix IVP. Spo2 improved to 96% on 4L oxymask. Afib on monitor persists 90s-102. Afebrile at this time. Awaiting bed assignment for admission, will continue to monitor closely.
[2024-12-04 02:23] LABS: Reflex Lactate? Lactic Acid Added
--- NOTE | 2024-12-04 03:24 | PC.NURSE ---
Pt WOB improved, SpO2 98% on 4L oxymask, afib on monitor HR low 90s. 250ml concentrated urine output, hospitalist updated. Xray to bedside for repeat imaging. Report given to Karey MAYO, pt exits my care at this time.
[2024-12-04 03:27] LABS: Hematocrit 37.9 % (42.0-52.0); Hemoglobin 13.1 g/dl (14.0-18.0); Mean Corpuscular HGB Conc 34.6 g/dl (31.0-36.0); Mean Corpuscular Volume 92.4 fL (80.0-98.0); Mean Platelet Volume 8.7 fL (9.4-12.4); Platelet Count 275 X10*3/uL (160-400); Red Cell Distribution Width 14.6 % (11.0-16.0); White Blood Count 17.7 X10*3/uL (4.8-10.8)
[2024-12-04 03:33] LABS: Anion Gap 14 (12-20); Blood Urea Nitrogen 20 mg/dL (9-16); Calcium 8.4 mg/dL (8.4-10.2); Carbon Dioxide 24 mmol/L (22-29); Chloride 106 mmol/L (96-108); Creatinine Clr Calc Pharmacy 82.2; Estimated Glomerular Filt Rate > 60; Glucose Random 149 mg/dL (60-115); Potassium 3.6 mmol/L (3.3-5.1); Sodium 140 mmol/L (135-145); ~Lactic Acid-LAB USE ONLY 1.5 mmol/L (0.5-2.0)
[2024-12-04] MEDS: Piperacillin Sodium/Tazobactam 4.5 GM in 0.9 % Sodium Chloride 100 ML IV ×4 (04:03→22:57)
--- NOTE | 2024-12-04 05:15 | PC.NURSE ---
Assumed care of pt at 0320, pt arousable to painful stimuli only, moaning and groaning. Pt not answering questions, afib RVR 100's with PVC's, Course lung sounds, cough requiring suction of oral airway, on 4L oxy mask spo2 95-97%. RR:30's IV access to R-forarm, zosyn administered as ordered. urine output approximately 500ml. Rectal temp rechecked 99.8, pt had small bm smears. cleane and repositioned. Pt awaiting bed placement. Plan of care ongoing.
--- NOTE | 2024-12-04 07:00 | CA_ITS ---
Transthoracic Echocardiogram Patient (Last, First, Middle): Dennis Brown, Gender: Male Date of : 1935 Age: 88 Procedure Date: 12/04/2024 Procedure Type: Transthoracic Echocardiogram Location: S3E Height: 182.88 cm Weight: 65.77 kg BSA: 1.86 m2 Heart Rate: bpm BP: 106 / 71 mmHg Cloth Colorer: TO Referring MD: Miranda Rosenthal MD Center Specialists: Artie Reza MD Symptoms: CHF Study Quality: Fair/Contrast ECG Rhythm: Atrial Fibrillation Conclusions: - 1. Moderately reduced LV ejection fraction 35-40% 2. Moderate biatrial enlargement 3. Mild mitral and aortic regurgitation 4. Normal measured RV systolic pressure with significantly elevated right atrial pressures 5. No gross pericardial effusion Findings Procedure Information Contrast agent, definity, is being given per protocol without apparent complications. Left Ventricle Normal left ventricular cavity size. There is normal left ventricular wall thickness. The left ventricular systolic function is moderately decreased. The visually estimated ejection fraction is between 35-40%. Diastolic function is indeterminate on the basis of available data. Right Ventricle Moderately increased right ventricular cavity size. There is normal right ventricular systolic function. Atria The left atrium is moderately dilated. Interatrial shunt cannot be excluded. The right atrium is moderately dilated. Aortic Valve There is mild calcification of the aortic valve. There is mild thickening of the aortic valve. There is no aortic valve stenosis. There is mild aortic valve regurgitation. Mitral Valve There is mild anterior and posterior mitral leaflet thickening. There is mild mitral annular calcification. There is mild mitral valve regurgitation. There is no mitral valve stenosis. Pulmonic Valve The pulmonic valve was not well visualized. Tricuspid Valve Likely normal tricuspid valve structure and function. There is mild tricuspid valve regurgitation. Significantly elevated right atrial pressure. There is no evidence of pulmonary hypertension. Great Vessels The aorta was not well visualized. The pulmonary artery was not well visualized. Venous The inferior vena cava is severely dilated and does not collapse with inspiration. Pericardium/Pleural There is no evidence of pericardial effusion. Prior Study Comparison No prior study available for comparison. Measurements 2D Linear Measurements IVSd: 1.13 0.6-0.9/0.6-1.0 cm LVIDd: 4.44 3.9-5.3/4.2-5.9 cm LVIDd Index: 2.39 2.4-3.2/2.2-3.1 cm/m2 LVIDs: 3.22 2.0-3.6 cm LVPWd: 0.88 0.7-1.1 cm LA Diam: 3.60 2.7-3.8/3.0-4.0 cm LAIDs Index: 1.94 1.5-2.3 cm/m2 LV Mass: 187.91 67-162/88-224 g LV Mass Index: 101.03 43-95/49-115 g/m2 LVOT Diam: 2.20 3.0+(-)1.3 cm 2D Systolic Function EF 4C: 34.30 >55% EF 2C: 36.20 >55% EF BiP: 36.30 >55% Mitral Valve MV Pk E: 0.90 MV Decel Time: 148.00 E'Lateral: 8.31 E'Medial: 6.09 E/E' Med: 14.70 E/E' Lat: 10.80 PHT: 43.00 MVA PHT: 5.12 Decel [place]S: 6.02 Aortic Valve AoV Pk [place]: 1.30 AoV Pk Grad: 7.00 LVOT LVOT Pk [place]: 0.75 LVOT Mn [place]: 0.47 LVOT VTI: 0.12 LVOT Pk Grad: 2.00 LVOT Mn Grad: 1.00 LVOT Diam: 2.20 LVOT Area: 3.80 Diastolic Function MV Pk E: 0.90 E'Medial: 6.09 E/E' Med: 14.70 E' Laterial: 8.31 E/E' Lat: 10.80 Right Ventricle TAPSE (mm): 20.30 TVS' Haroldo: 11.70 Tricuspid Valve TR Pk [place]: 2.28 TR Pk Grad: 21.00 RA Press: 15.00 RVSP: 36.00 Great Vessels Aorta Sinus of Valsalva: 3.49 2.0-3.5 cm Ao Asc: 3.60 2.1-3.4 cm Updated in Other Vendor System with Status of Final Artie Reza MD electronically signed on 12/04/2024 4:33:57 PM with status of Final
--- NOTE | 2024-12-04 07:38 | PC.NURSE ---
This RN arrived to find pt pulling off clothing and wires. Pt redirected and redressed. [place] Cath in place working well. Sitter sat with pt until he could go upstairs.
--- NOTE | 2024-12-04 10:23 | MHC.SLORD ---
Speech Language Pathology Order Status: COOLER TENDER attempted to see pt for re-evaluation of swallow this morning. Pt lethargic upon visit. Per RN, pt did not open mouth to take PO. RN to Karlo COOLER TENDER if pt becomes appropriate for eval.
--- NOTE | 2024-12-04 14:22 | MHC.SL.SWA ---
Risk of Aspiration Due to: Reduced Cognition Dysphasia Diet Status: UPGRADE from NPO Liquid Consistency and Strategies for Safe Swallow: Liquid Intake Recommendation: [place] Thick Liquid Intake Strategies: Small Sips No Straws Liquids by Teaspoon Only Solid Food Consistency: Dietary Recommendations: Pureed (NDD1) Oral Medication Intake: Crushed with Puree Please contact the pharmacy regarding appropriate crushable or liquid drug formulations that are available whenever modified delivery is recommended. Compensatory Strategies and Precautions to be Taken for Safe Swallow: Sitting Upright (90 deg) No Straw Liquids from Spoon Small Bites and Sips Rate of Ingestion Change Oral Check Supervision While Eating and Drinking for Safe Swallow: Total Assistance (1:1) Foods to Avoid: Swallowing Recommended Treatments: Compens. Strategy Educat. Recommendation for Speech: Inpatient Speech Therapy Comment: Recommend UPGRADE to PUREE solids (NDD1) and [place]ONEY THICK liquids (TE[place]PO[place] ONLY) w/ pills CRUSHED in PUREE. Pt requires 1-1 assist w/ all PO. Pt presented w/ overt clinical s/s aspiration on thin liquids. Pt may have ice chips before/after meals; wait 30 minutes before/after meals to consume ice chips to minimize risk of aspiration on solids. Family at bedside and informed of updates. Family agreeable to tx plan. Frequency/Duration: Daily M-F Software Systems Analyst Clinican/Clinical Fellow: No Supervisory Statement: I have reviewed and agree with the student/clinical fellow's documentation: N/A Speech Language Pathologist: Angelika Kim M.A., CCC-PAYROLL MANAGER
[2024-12-04] MEDS: lisinopriL 20 MG TABLET PO (16:06)
[2024-12-04] MEDS: Apixaban 2.5 MG TABLET PO (16:06)
[2024-12-04] MEDS: Metoprolol Succinate ER 25 MG TAB.ER.24H PO (16:07)
[2024-12-04] MEDS: Azithromycin 500 MG in 0.9 % Sodium Chloride 250 ML 125 MG IV (20:44)
[2024-12-05 00:11] VITALS: BP 163/88; PULSE 74; RESP 16; TEMP 36.5; O2SAT 96
[2024-12-05] MEDS: Piperacillin Sodium/Tazobactam 4.5 GM in 0.9 % Sodium Chloride 100 ML IV ×4 (03:59→22:10)
[2024-12-05 07:56] LABS: Hematocrit 37.6 % (42.0-52.0); Hemoglobin 12.5 g/dl (14.0-18.0); Mean Corpuscular HGB Conc 33.2 g/dl (31.0-36.0); Mean Corpuscular Volume 96.2 fL (80.0-98.0); Mean Platelet Volume 9.2 fL (9.4-12.4); Platelet Count 265 X10*3/uL (160-400); Red Blood Count 3.91 X10*6/uL (4.60-5.80); Red Cell Distribution Width 14.5 % (11.0-16.0); White Blood Count 10.6 X10*3/uL (4.8-10.8)
[2024-12-05 08:00] VITALS: BP 138/86; PULSE 86; RESP 18; TEMP 36.6; O2SAT 98
[2024-12-05 08:06] LABS: Anion Gap 12 (12-20); Blood Urea Nitrogen 23 mg/dL (9-16); Calcium 8.7 mg/dL (8.4-10.2); Carbon Dioxide 28 mmol/L (22-29); Chloride 108 mmol/L (96-108); Creatinine Clr Calc Pharmacy 83.6; Estimated Glomerular Filt Rate > 60; Glucose Random 119 mg/dL (60-115); Potassium 3.6 mmol/L (3.3-5.1); Sodium 144 mmol/L (135-145)
[2024-12-05] MEDS: lisinopriL 20 MG TABLET PO (09:19)
[2024-12-05] MEDS: Metoprolol Succinate ER 25 MG TAB.ER.24H PO (09:20)
[2024-12-05] MEDS: Atorvastatin Calcium 10 MG TABLET PO (09:20)
[2024-12-05] MEDS: Cholecalciferol (Vitamin D3) 25 MCG TABLET PO (09:21)
[2024-12-05] MEDS: Apixaban 2.5 MG TABLET PO ×2 (09:23→20:00)
[2024-12-05] MEDS: 0.9 % Sodium Chloride Flush 3 ML SYRINGE IVFLUSH ×2 (09:29→20:01)
--- NOTE | 2024-12-05 09:41 | P.PNIM_ITS ---
Subjective Subjective Date of Service: 12/05/24 Interval History: f/u on acute hypoxic resp failure due pneumonia likely aspriation type, he's confused remains confused but overall better, still on oxygen but reduced. Physical Exam 2 Vital Signs: Vital Signs: Last Vital Signs Temp 98 F 12/05/24 08:00 Pulse 86 12/05/24 08:00 Resp 18 12/05/24 08:00 BP 138/86 12/05/24 08:00 Pulse Ox 98 12/05/24 08:00 O2 Del Method Aerosol Mask 12/05/24 08:00 O2 Flow Rate 4 12/05/24 08:00 BMI result Body Mass Index 19.7 Const: Other: General: confused, alert, no disres Resp: rales at bases CVS: S1,S2,RRR GI: +BS, NT, no distention Skin: No rash Neuro: no deficit Psych: flat affect Objective Data Active Medications Acetaminophen (Acetaminophen 325 Mg Tablet) 650 mg PO Q6H PRN PRN Reason: Pain, Mild 1-3,fever,headache Apixaban (Apixaban 2.5 Mg Tablet) 2.5 mg PO BID [facility] Last Admin: 12/05/24 09:23 Dose: 2.5 mg Documented By: YEYO Atorvastatin Calcium (Atorvastatin Calcium 10 Mg Tablet) 10 mg PO DAILY [facility] Last Admin: 12/05/24 09:20 Dose: 10 mg Documented By: YEYO Benzonatate (Benzonatate 100 Mg Capsule) 100 mg PO TID PRN PRN Reason: Cough Calcium Carbonate (Calcium Carbonate 750 Mg Tab.Chew) 750 mg PO Q4H PRN PRN Reason: Heartburn Docusate Sodium (Docusate Sodium 100 Mg Capsule) 100 mg PO BID [facility] Last Admin: 12/05/24 09:21 Dose: Not Given Documented By: YEYO Non-Admin Reason: NPO Azithromycin 500 mg/ Sodium (Chloride) 250 mls @ 125 mls/hr IV Q24H [facility] Last Infusion: 12/04/24 22:49 Dose: Infused Documented By: CINDY Piperacillin Sod/Tazobactam (Sod 4.5 gm/ Sodium Chloride) 100 mls @ 200 mls/hr IV Q6H [facility] Last Admin: 12/05/24 09:30 Dose: 200 mls/hr Documented By: YEYO Lisinopril (Lisinopril 20 Mg Tablet) 20 mg PO DAILY [facility]; Protocol Last Admin: 12/05/24 09:19 Dose: 20 mg Documented By: YEYO Magnesium Hydroxide (Milk Of Magnesia 30 Ml Oral.Susp) 30 ml PO DAILY PRN PRN Reason: Constipation Melatonin (Melatonin 3 Mg Tablet) 6 mg PO BEDTIME PRN PRN Reason: Insomnia Metoprolol Succinate (Metoprolol Succinate Er 25 Mg Tab.Er.24h) 25 mg PO DAILY [facility]; Protocol Last Admin: 12/05/24 09:20 Dose: 25 mg Documented By: YEYO Ondansetron HCl (Ondansetron Hcl 4 Mg/2 Ml Vial) 4 mg IVPUSH Q8H PRN PRN Reason: Nausea and Vomiting Sodium Chloride (0.9 % Sodium Chloride Flush 3 Ml Syringe) 3 ml IVFLUSH QSHIFT [facility] Last Admin: 12/05/24 09:29 Dose: 3 ml Documented By: YEYO Tramadol HCl (Tramadol Hcl 50 Mg Tablet) 50 mg PO BID PRN PRN Reason: Pain, Severe (Pain Scale 7-10) Vitamin D (Cholecalciferol (Vitamin D3) 25 Mcg Tablet) 25 mcg PO DAILY [facility] Last Admin: 12/05/24 09:21 Dose: 25 mcg Documented By: YEYO Labs 12/05/24 07:19 12/05/24 07:19 Labs: Laboratory Results - last 24 hr 12/05/24 07:19 MCV 96.2 MCH 32.0 MCHC 33.2 RDW 14.5 Plt Count 265 MPV 9.2 L Absolute Nucleated RBC 0.000 Nucleated RBC % (auto) 0.0 Anion Gap 12 Estim Creat Clear Calc 83.6 Estimated GFR > 60 Random Glucose 119 H Calcium 8.7 Microbiology Microbiology Results: Microbiology 12/03/24 00:13 Blood Culture - Preliminary Blood - Venous No growth after 48 hours. 12/03/24 00:04 Blood Culture - Preliminary Blood - Venous No growth after 48 hours. Assessment and Plan (1) Chronic a-fib: Status: Acute (2) Pneumonia: Status: Acute (3) Acute hypoxic respiratory failure: Status: Acute Plan Patient is an 88-year-old male with a past medical history significant for prostate cancer, HLD, HTN and chronic AFib, who presented to the ED due to shortness of breath and [facility]. Acute hypoxic respiratory failure and metabolic encephalopathy secondary to aspiration pneumonia and Heart failure, 19 to now normal at 10 was oon ceftriaxone and Azithro, Ceftriaxone changed to Zosyn on 12/03, continue monitoring wbc, WASTEWATER TREATMENT PLANT ATTENDANT following, continue diet per WASTEWATER TREATMENT PLANT ATTENDANT Acute on chronic systolic heart failure, EF 35/40 echo EF as above follow i/o, bmp IV Lasix and monitor Chronic AFib continue metoprolol eliquis i HLD continue statin HTN, BP continue metoprolol and lisinopril guarded prognosis, goals of care discussed with son yesterday, to continue care per MOLST form Full code VTE prophylaxis: Zoltanis topher Quality Stroke Does the patient have a stroke diagnosis?: No VTE Prior VTE?: No VTE Risk Level:: Medical - moderate - high VTE Device Contraindication: Treatment Not Indicated VTE Drug Contraindication: N/A - Med Ordered
[2024-12-05] MEDS: Furosemide 40 MG/4 ML VIAL IVPUSH (11:22)
--- NOTE | 2024-12-05 13:34 | MHC.CM.PN ---
pt from [facility] where he will return when medically stable pt being weaned off of the 02
--- NOTE | 2024-12-05 13:34 | MHC.SL.SWA ---
Speech Pathologist Impression: Risk of Aspiration Due to: Reduced Cognition Dysphasia Diet Status: Recommend PUREE solids (NDD1) and NECTAR THICK iquids (no straws). Pills CRUSHED in PUREE. Pt requires 1-1 assist w/ all PO. Pt may have ice chips before/after meals; wait 30 minutes before/after meals to consume ice chips to minimize risk of aspiration on solids. Liquid Consistency and Strategies for Safe Swallow: Liquid Intake Recommendation: [place] Thick Liquid Intake Strategies: Small Sips No Straws Liquids by Teaspoon Only Solid Food Consistency: Dietary Recommendations: Pureed (NDD1) Additional Modifications to Solid Foods: Oral Medication Intake: Crushed with Puree Please contact the pharmacy regarding appropriate crushable or liquid drug formulations that are available whenever modified delivery is recommended. Compensatory Strategies and Precautions to be Taken for Safe Swallow: Sitting Upright (90 deg) No Straw Liquids from Spoon Small Bites and Sips Rate of Ingestion Change Oral Check Supervision While Eating and Drinking for Safe Swallow: Total Assistance (1:1) Foods to Avoid: Swallowing Recommended Treatments: Compens. Strategy Educat. Recommendation for Speech: Inpatient Speech Therapy Comment: Pt tolerated purees and HTL during lunch when fed. Pt has been asking for water. DIRECTOR CLINICAL RESEARCH trialed sips of water with pt, cueing him to take small sips and pace slowly. No overt s/s of aspiration with trials of thins. Pt appropriate to advance to NTL, no straws. PO trials discontinued as pt became very distressed, expressed he needs to BM. RN and BEHAVIORAL HEALTH ASSOCIATE consulted. [facility] diet as ordered, anticipate upgrade will be appropriate within the next few days. Frequency/Duration: Daily M-F Date Range for Service Req: Timeline to reassess: Office Mail Clerk Clinican/Clinical Fellow: No Supervisory Statement: I have reviewed and agree with the student/clinical fellow's documentation: N/A Speech Language Pathologist: Denise Kahn M.S., CCC-DIRECTOR CLINICAL RESEARCH
[2024-12-05 13:51] VITALS: BMI 19.7
--- NOTE | 2024-12-05 14:55 | MHC.CLN ---
NUTRITION DIET=REGULAR, PUREE WITH NECTAR THICK LIQUIDS. SEEN BY TRACK REPAIRER HELPER . QUALIFIES MODERATELY MALNOURISHED IN THE CONTEXT OF CHRONIC ILLNESS. ADDING MAGIC CUP BID TO PROMOTE NUTRITIONAL INTAKE. PROVIDES 580 KCALS, 18 G PROTEIN. FOLLOW FOR PO INTAKE AND DIET TOLERANCE. SEE CLINICAL NUTRITION ASSESSMENT 12/05/24.
[2024-12-05 15:39] VITALS: BP 132/78; PULSE 85; RESP 16; TEMP 37; O2SAT 96
[2024-12-05] MEDS: Acetaminophen 325 MG TABLET 650 MG PO (16:52)
[2024-12-05 19:27] VITALS: BP 131/73; PULSE 86; RESP 18; TEMP 37.1; O2SAT 97
[2024-12-05] MEDS: Docusate Sodium 100 MG CAPSULE PO (20:00)
[2024-12-05] MEDS: Azithromycin 500 MG in 0.9 % Sodium Chloride 250 ML 125 MG IV (20:00)
[2024-12-05] MEDS: traMADoL HCL 50 MG TABLET PO (22:15)
[2024-12-05 23:27] VITALS: BP 118/56; PULSE 82; RESP 18; TEMP 36.2; O2SAT 93
[2024-12-06] VITALS (7 sets, daily range): BP systolic 141–165; BP diastolic 65–99; PULSE 61–108; RESP 16–18; TEMP 36–37.2; O2SAT 94–97
[2024-12-06] MEDS: Piperacillin Sodium/Tazobactam 4.5 GM in 0.9 % Sodium Chloride 100 ML IV ×4 (03:38→22:08)
[2024-12-06 06:37] LABS: Hematocrit 36.1 % (42.0-52.0); Hemoglobin 12.2 g/dl (14.0-18.0); Mean Corpuscular HGB Conc 33.8 g/dl (31.0-36.0); Mean Corpuscular Hemoglobin 31.8 pg (27.0-33.0); Mean Platelet Volume 9.4 fL (9.4-12.4); Platelet Count 285 X10*3/uL (160-400); Red Blood Count 3.84 X10*6/uL (4.60-5.80); Red Cell Distribution Width 14.1 % (11.0-16.0); White Blood Count 11.5 X10*3/uL (4.8-10.8)
[2024-12-06 07:10] LABS: Blood Urea Nitrogen 23 mg/dL (9-16); Calcium 8.7 mg/dL (8.4-10.2); Creatinine Clr Calc Pharmacy 86.5; Estimated Glomerular Filt Rate > 60; Glucose Random 121 mg/dL (60-115)
[2024-12-06 07:57] LABS: Anion Gap 14 (12-20); Carbon Dioxide 27 mmol/L (22-29); Chloride 108 mmol/L (96-108); Potassium 2.8 mmol/L (3.3-5.1); Sodium 146 mmol/L (135-145)
[2024-12-06] MEDS: Acetaminophen 325 MG TABLET 650 MG PO (08:21)
[2024-12-06] MEDS: lisinopriL 20 MG TABLET PO (08:22)
[2024-12-06] MEDS: Metoprolol Succinate ER 25 MG TAB.ER.24H PO (08:22)
[2024-12-06] MEDS: Atorvastatin Calcium 10 MG TABLET PO (08:23)
[2024-12-06] MEDS: Apixaban 2.5 MG TABLET PO ×2 (08:23→20:44)
[2024-12-06] MEDS: Cholecalciferol (Vitamin D3) 25 MCG TABLET PO (08:23)
[2024-12-06] MEDS: 0.9 % Sodium Chloride Flush 3 ML SYRINGE IVFLUSH ×3 (08:26→22:23)
[2024-12-06] MEDS: Potassium Chloride Packet 20 MEQ PACKET 40 MEQ PO ×3 (09:05→20:45)
[2024-12-06 09:41] LABS: Magnesium 2.5 mg/dL (1.6-2.6)
--- NOTE | 2024-12-06 09:47 | HO.PM.IMPN ---
Subjective Subjective Date of Service: 12/06/24 Interval History: f/u pna, chf, has low potassium Physical Exam Vital Signs: Vital Signs: Last Vital Signs Temp 98.6 F 12/07/24 08:06 Pulse 87 12/07/24 08:06 Resp 18 12/07/24 08:06 BP 147/80 H 12/07/24 09:32 Pulse Ox 97 12/07/24 08:06 O2 Del Method Room Air 12/07/24 08:06 O2 Flow Rate 2 12/05/24 15:39 BMI result Body Mass Index 19.7 Const: Other: General: confused, alert, no disres Resp: rales at bases CVS: S1,S2,RRR GI: +BS, NT, no distention Skin: No rash Neuro: no deficit Psych: flat affect Objective Data Active Medications Acetaminophen (Acetaminophen 325 Mg Tablet) 650 mg PO Q6H PRN PRN Reason: Pain, Mild 1-3,fever,headache Last Admin: 12/06/24 08:21 Dose: 650 mg Documented By: CLAUDIA Apixaban (Apixaban 2.5 Mg Tablet) 2.5 mg PO BID [facility] Last Admin: 12/07/24 08:06 Dose: 2.5 mg Documented By: MARISSA Atorvastatin Calcium (Atorvastatin Calcium 10 Mg Tablet) 10 mg PO DAILY [facility] Last Admin: 12/07/24 08:05 Dose: 10 mg Documented By: MARISSA Benzonatate (Benzonatate 100 Mg Capsule) 100 mg PO TID PRN PRN Reason: Cough Calcium Carbonate (Calcium Carbonate 750 Mg Tab.Chew) 750 mg PO Q4H PRN PRN Reason: Heartburn Docusate Sodium (Docusate Sodium 100 Mg Capsule) 100 mg PO BID [facility] Last Admin: 12/07/24 08:05 Dose: 100 mg Documented By: MARISSA Azithromycin 500 mg/ Sodium (Chloride) 250 mls @ 125 mls/hr IV Q24H [facility] Last Infusion: 12/06/24 22:35 Dose: Infused Documented By: CASIMIRO Piperacillin Sod/Tazobactam (Sod 4.5 gm/ Sodium Chloride) 100 mls @ 200 mls/hr IV Q6H [facility] Last Infusion: 12/07/24 04:16 Dose: Infused Documented By: CASIMIRO Lisinopril (Lisinopril 20 Mg Tablet) 20 mg PO DAILY [facility]; Protocol Last Admin: 12/07/24 08:05 Dose: 20 mg Documented By: MARISSA Magnesium Hydroxide (Milk Of Magnesia 30 Ml Oral.Susp) 30 ml PO DAILY PRN PRN Reason: Constipation Melatonin (Melatonin 3 Mg Tablet) 6 mg PO BEDTIME PRN PRN Reason: Insomnia Metoprolol Succinate (Metoprolol Succinate Er 25 Mg Tab.Er.24h) 25 mg PO DAILY [facility]; Protocol Last Admin: 12/07/24 08:05 Dose: 25 mg Documented By: MARISSA Ondansetron HCl (Ondansetron Hcl 4 Mg/2 Ml Vial) 4 mg IVPUSH Q8H PRN PRN Reason: Nausea and Vomiting Sodium Chloride (0.9 % Sodium Chloride Flush 3 Ml Syringe) 3 ml IVFLUSH QSHIFT [facility] Last Admin: 12/07/24 08:05 Dose: 3 ml Documented By: MARISSA Tramadol HCl (Tramadol Hcl 50 Mg Tablet) 50 mg PO BID PRN PRN Reason: Pain, Severe (Pain Scale 7-10) Last Admin: 12/05/24 22:15 Dose: 50 mg Documented By: RACHEL Vitamin D (Cholecalciferol (Vitamin D3) 25 Mcg Tablet) 25 mcg PO DAILY [facility] Last Admin: 12/07/24 08:06 Dose: 25 mcg Documented By: MARISSA Labs 12/06/24 05:41 12/07/24 08:16 Labs: Laboratory Results - last 24 hr 12/06/24 12/07/24 10:09 08:16 Anion Gap 11 L 13 Estim Creat Clear Calc 86.5 91.3 Estimated GFR > 60 > 60 Random Glucose 211 H 111 Calcium 8.7 9.0 Assessment and Plan (1) Chronic a-fib: Status: Acute (2) Pneumonia: Status: Acute (3) Acute hypoxic respiratory failure: Status: Acute Plan Patient is an 88-year-old male with a past medical history significant for prostate cancer, HLD, HTN and chronic AFib, who presented to the ED due to shortness of breath and [facility] Patient was found to have acute hypoxic respiratory failure and imaging showed pneumonia with elevated WBC of 19K and confused. Patient was treated with IV antibioticvs starting initially with Ceftriaxone and Azithromycin, however the following day, WBC increased to 20 K and antibiotics was changed to Zosyn and azithromycin and subsequently WBC has gradually come down. He will be transitioned to oral Augmentin at discharged for a total of 7 days of antibiotics for likely aspiration pneumonia. He was seen by FACE AND FILL PACKER with recommendation for NDD1 food and [place] thick liquid. While confused and not able to eat, he was given IVF which resulted in fluid overload and heart failure, and increased oxygen requirment. He was given IV Lasix with good effect, an echocardiogram showd an EF fof 35-40 %, he is presently compensated with no fluid overload and has been weaned off oxygen and saturating 94% on room. He may follow up with cardiology on outpatient basis. Chronic AFib continue metoprolol eliquis Hypokalemia d/t Lasix, replacing HLD continue statin HTN, BP continue metoprolol and lisinopril guarded prognosis, goals of care discussed with son yesterday, to continue care per MOLST form late entry note from 12/06 dvt prophylaxis: radhames full code Quality Stroke Does the patient have a stroke diagnosis?: No VTE Prior VTE?: No VTE Risk Level:: Medical - moderate - high VTE Device Contraindication: Treatment Not Indicated VTE Drug Contraindication: N/A - Med Ordered
[2024-12-06] MEDS: Potassium Chloride/H20 10 MEQ/100 ML PIGGYBACK 100 MEQ IV (10:49)
[2024-12-06 11:04] LABS: Anion Gap 11 (12-20); Blood Urea Nitrogen 23 mg/dL (9-16); Calcium 8.7 mg/dL (8.4-10.2); Carbon Dioxide 27 mmol/L (22-29); Chloride 110 mmol/L (96-108); Creatinine Clr Calc Pharmacy 86.5; Estimated Glomerular Filt Rate > 60; Glucose Random 211 mg/dL (60-115); Potassium 3.1 mmol/L (3.3-5.1); Sodium 145 mmol/L (135-145)
--- NOTE | 2024-12-06 13:31 | MHC.SL.SWA ---
Speech Pathologist Impression:Risk of Aspiration, Oropharyngeal Dysphagia Risk of Aspiration Due to: Reduced Cognition Dysphasia Diet Status: No Change Liquid Consistency and Strategies for Safe Swallow: Liquid Intake Recommendation: [place] Thick Liquid Intake Strategies: Small Sips No Straws Solid Food Consistency: Dietary Recommendations: Pureed (NDD1) Oral Medication Intake: Crushed with Puree Please contact the pharmacy regarding appropriate crushable or liquid drug formulations that are available whenever modified delivery is recommended. Compensatory Strategies and Precautions to be Taken for Safe Swallow: Sitting Upright (90 deg) No Straw Liquids from Cup Liquids from Spoon Small Bites and Sips Rate of Ingestion Change Oral Check Supervision While Eating and Drinking for Safe Swallow: Total Assistance (1:1) Swallowing Recommended Treatments: Compens. Strategy Educat. Recommendation for Speech: Inpatient Speech Therapy Frequency/Duration: Daily M-F Date Range for Service Req: Timeline to reassess: Status Controller Clinican/Clinical Fellow: No Supervisory Statement: I have reviewed and agree with the student/clinical fellow's documentation: N/A Speech Language Pathologist: Ramandeep Piper M.A., CCC-AERIAL HURRICANE HUNTER
--- NOTE | 2024-12-06 16:13 | MHC.CM.PN ---
IMM DELIVERED. CM SPOKE WITH SON SHAI TO UPDATE ON DC PLAN/ CM WILL CONTINUE TO FOLLOW PT IS NOT MEDICALLY CLEARED. [facility]SH UPDATED.
[2024-12-06 16:14] LABS: Potassium 2.8 mmol/L (3.3-5.1)
[2024-12-06] MEDS: Azithromycin 500 MG in 0.9 % Sodium Chloride 250 ML 125 MG IV (20:23)
[2024-12-07 03:00] VITALS: BP 164/86; PULSE 98; RESP 16; TEMP 36.9; O2SAT 95
[2024-12-07] MEDS: Piperacillin Sodium/Tazobactam 4.5 GM in 0.9 % Sodium Chloride 100 ML IV ×2 (03:37→10:12)
[2024-12-07] MEDS: Metoprolol Succinate ER 25 MG TAB.ER.24H PO (08:05)
[2024-12-07] MEDS: Docusate Sodium 100 MG CAPSULE PO (08:05)
[2024-12-07] MEDS: Atorvastatin Calcium 10 MG TABLET PO (08:05)
[2024-12-07] MEDS: lisinopriL 20 MG TABLET PO (08:05)
[2024-12-07] MEDS: 0.9 % Sodium Chloride Flush 3 ML SYRINGE IVFLUSH (08:05)
[2024-12-07 08:06] VITALS: BP 178/83; PULSE 87; RESP 18; TEMP 37; O2SAT 97
[2024-12-07] MEDS: Apixaban 2.5 MG TABLET PO (08:06)
[2024-12-07] MEDS: Cholecalciferol (Vitamin D3) 25 MCG TABLET PO (08:06)
[2024-12-07 09:12] LABS: Blood Urea Nitrogen 20 mg/dL (9-16); Creatinine Clr Calc Pharmacy 91.3; Estimated Glomerular Filt Rate > 60; Glucose Random 111 mg/dL (60-115)
[2024-12-07 09:24] LABS: Anion Gap 13 (12-20); Carbon Dioxide 24 mmol/L (22-29); Chloride 112 mmol/L (96-108); Potassium 4.1 mmol/L (3.3-5.1); Sodium 145 mmol/L (135-145)
[2024-12-07 09:32] VITALS: BP 147/80
--- NOTE | 2024-12-07 09:44 | PM.DS ---
DS: Providers Provider Date of Service: 12/07/24 Date of admission: 12/03/24 05:08 Date of discharge: 12/07/24 Primary care physician: Eveyln Davison NP DS: Diagnosis Discharge Diagnosis (1) Chronic a-fib: Status: Acute (2) Pneumonia: Status: Acute (3) Acute hypoxic respiratory failure: Status: Acute DS: Summary Hospital Course Hospital Course: Chief Complaint: SOB, AMS Patient is an 88-year-old male with a past medical history significant for prostate cancer, HLD, HTN and chronic AFib, who presented to the ED due to shortness of breath and altered mental status [facility]. He reported his oxygen saturations in the 80s on room air. No fever, chills, nausea or vomiting. The patient is very hard of hearing and also altered therefore his history was difficult to obtain. He denies any LE edema, abdominal pain or urinary symptoms including frequency, urgency or dysuria. He states overall he is feeling well. Hospital course: Patient is an 88-year-old male with a past medical history significant for prostate cancer, HLD, HTN and chronic AFib, who presented to the ED due to shortness of breath and altered mental status from [facility]. Patient was found to have acute hypoxic respiratory failure and imaging showed pneumonia with elevated WBC of 19K and confused. Patient was treated with IV antibioticvs starting initially with Ceftriaxone and Azithromycin, however the following day, WBC increased to 20 K and antibiotics was changed to Zosyn and azithromycin and subsequently WBC has gradually come down. He will be transitioned to oral Augmentin at discharged for a total of 7 days of antibiotics for likely aspiration pneumonia. He was seen by INBOUND CALL CENTER AGENT with recommendation for NDD1 food and [place] thick liquid. While confused and not able to eat, he was given IVF which resulted in fluid overload and heart failure, and increased oxygen requirment. He was given IV Lasix with good effect, an echocardiogram showd an EF fof 35-40 %, he is presently compensated with no fluid overload and has been weaned off oxygen and saturating 94% on room and no indication for lasix at this time. He may follow up with cardiology on outpatient basis. Chronic AFib continue metoprolol eliquis Hypokalemia d/t Lasix, replaced, potassium is now 4.1 HLD continue statin HTN, BP continue metoprolol and lisinopril Dysphagia: Liquid Consistency and Strategies for Safe Swallow: Liquid Intake Recommendation: [place] Thick Liquid Intake Strategies: Small SipsNo Straws Solid Food Consistency: Dietary Recommendations: Pureed (NDD1) To return to the [facility] home Full code Time Attestation Discharge Coordination Time (in mins): 45 Quality: Safe Use of Opioids Does Pt have an Active Cancer Diagnosis on the Problem List?: No Quality: Stroke Does the patient have a stroke diagnosis?: No Physical Exam Vital Signs: Vital Signs: Selected Entries 12/07/24 08:06 12/07/24 09:32 Temperature 98.6 F Pulse Rate 87 Respiratory Rate 18 Blood Pressure 147/80 H Pulse Oximetry 97 Oxygen Delivery Me thod Room Air DS: Data Data Completed and Pending Labs on day of discharge: Laboratory Results - last 24 hr 12/06/24 05:41 WBC 11.5 H RBC 3.84 L Hgb 12.2 L Hct 36.1 L MCV 94.0 MCH 31.8 MCHC 33.8 RDW 14.1 Plt Count 285 MPV 9.4 Absolute Nucleated RBC 0.000 Nucleated RBC % (auto) 0.0 Sodium 146 H Potassium 2.8 L* D Chloride 108 Carbon Dioxide 27 Anion Gap 14 BUN 23 H Creatinine 0.57 Estim Creat Clear Calc 86.5 Estimated GFR > 60 Random Glucose 121 H Calcium 8.7 Magnesium 2.5 Preliminary micro results at discharge 12/03/24 00:13 Blood Culture - Preliminary Blood - Venous No growth after 48 hours. 12/03/24 00:04 Blood Culture - Preliminary Blood - Venous No growth after 48 hours. Discharge Plan Discharge Anticipated Discharge Date/Time: 12/07/24 09:34 Patient Disposition: Xfer SNF Discharge Diagnosis: Acute hypoxic respiratory failure, Pneumonia, encephalopathy [facility] - [facility] Week ([facility]UMPT[facility] OF [facility]) Evelyn Davison NP [Primary Care Provider] - 1 Week Artie Reza MD [Physician] - 2 Weeks Discharge Medications: New amoxicillin-pot clavulanate 875-125 mg tablet 1 tab PO BID Qty: 4 0RF Continued acetaminophen 325 mg Tablet 650 mg PO Q4H PRN (Reason: Pain) lisinopril 20 mg tablet 20 mg PO DAILY ondansetron HCl 4 mg Tablet 4 mg PO Q6H PRN (Reason: Nausea) tramadol 50 mg Tablet 50 mg PO BID simvastatin 20 mg Tablet 20 mg PO DAILY docusate sodium 100 mg Capsule 100 mg PO BID metoprolol succinate 25 mg tablet extended release 24 hr 25 mg PO DAILY cholecalciferol (vitamin D3) [Vitamin D3] 25 mcg (1,000 unit) Tablet 25 mcg PO DAILY Eliquis 2.5 mg tablet 2.5 mg PO BID PreserVision AREDS-2 250-90-40-1 mg Capsule PO Discharge Orders: Discharge Order (Routine); Ordered 12/07/24 Ordered By: Dioni Botello Diet: Advance to usual diet Activity on Discharge: As tolerated Stand Alone Forms: Patient Portal Discharge page Print Language: Maltese Care Plan Goals: recovery from pneumonia, encephalopathy and heart failure Health Concerns: Acute heart failure pneumonia, acute hypoxic resp failure metabolic encephalopathy Plan of Treatment: Take Augmentin to complete treatment for pneumonia continue taking all your usual medications follow up with your regular doctor in a week you may follow up with an outpatient podiatric assistant for hear failure Diet recommendation: Liquid Consistency and Strategies for Safe Swallow: Liquid Intake Recommendation: [place] Thick Liquid Intake Strategies: Small SipsNo Straws Solid Food Consistency: Dietary Recommendations: Pureed (NDD1) Assessment: see above
--- NOTE | 2024-12-07 12:30 | MHC.CM.PN ---
Patient is discharged today. He will return to [facility] today. T/W spoke with the patient's nurse, Arabella as well as Specimen Accessioner Tammy. All dc information + FARM IMPLEMENT ENGINE MECHANIC recommendations have been sent to the [facility]. 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 Patient son is aware of the discharge. He declined the offer to speak with .
--- NOTE | 2024-12-07 12:34 | PC.NURSE ---
Pt son is very concerned with all dietary orders [facility] when [facility] is discharged. This RN gave nurse to nurse report to Tammy at [facility] and verbalized that patient is 1:1 feed with puree and [place]ct[place] thick liquids and crushed meds. Tammy confirmed information. Message was left with son to notify him that all information was relayed
[2024-12-07 12:50] VITALS: BP 138/89; PULSE 80; TEMP 37; O2SAT 94
--- NOTE | 2024-12-07 13:34 | MHC.SL.SWA ---
Speech Pathologist Impression: Risk of Aspiration, Oropharyngeal Dysphagia Risk of Aspiration Due to: Reduced Cognition Dysphasia Diet Status: No Change Liquid Consistency and Strategies for Safe Swallow: Liquid Intake Recommendation: [place] Thick Liquid Intake Strategies: Small Sips No Straws Solid Food Consistency: Dietary Recommendations: Pureed (NDD1) Additional Modifications to Solid Foods: Patient will need continued speech therapy at the next level of care for treatment of dysphagia Oral Medication Intake: Crushed with Puree Please contact the pharmacy regarding appropriate crushable or liquid drug formulations that are available whenever modified delivery is recommended. Compensatory Strategies and Precautions to be Taken for Safe Swallow: Sitting Upright (90 deg) No Straw Liquids from Cup Liquids from Spoon Small Bites and Sips Rate of Ingestion Change Oral Check Supervision While Eating and Drinking for Safe Swallow: Total Assistance (1:1) Swallowing Recommended Treatments: Compens. Strategy Educat. Recommendation for Speech: Inpatient Speech Therapy Speech Therapy at [facility] Frequency/Duration: Daily M-F Date Range for Service Req: Timeline to reassess: Labor Delivery Specialist Clinican/Clinical Fellow: No Supervisory Statement: I have reviewed and agree with the student/clinical fellow's documentation: N/A Speech Language Pathologist: Ramandeep Piper M.A., CCC-ALTERATION INSPECTOR
== END 2024-12-07 14:04 | disposition skilled nursing facility (03) | DRG 177 ==
LOC: HO.ED 12-03 04:06 → HO.EDOVER 12-03 05:12 → HO.S3 12-04 06:45
PROVIDERS: Admitting Provider Student in an Organized Health Care Education/Training Program; Emergency Provider Emergency Medicine; PCP Nurse Practitioner; Visit Provider Internal Medicine
DX: J69.0 Pneumonitis due to inhalation of food and vomit (principal); G93.41 Metabolic encephalopathy; J96.01 Acute respiratory failure with hypoxia; I50.23 Acute on chronic systolic (congestive) heart failure; I48.20 Chronic atrial fibrillation, unspecified; I11.0 Hypertensive heart disease with heart failure; R13.10 Dysphagia, unspecified; E87.6 Hypokalemia; E78.5 Hyperlipidemia, unspecified; Z85.46 Personal history of malignant neoplasm of prostate; Z20.822 Contact with and (suspected) exposure to COVID-19; Z87.891 Personal history of nicotine dependence; Z79.01 Long term (current) use of anticoagulants; Z79.899 Other long term (current) drug therapy
CPT/HCPCS: 0241U; 36415; 71045; 71250; 80048; 80076; 82803; 83605; 83735; 83880; 84132; 84484; 85025; 85027; 87040; 92526; 92610; 93005; 93306; 99285; J0131; J0456; J0696; J1940; J2060; J2543; J3480; Q9957

== ENCOUNTER → 2024-12-02 23:56 | Outpatient (BNV) | payer OTHER, SELFPAY | PROVIDERS: Admitting Provider Student in an Organized Health Care Education/Training Program; Emergency Provider Emergency Medicine; PCP Nurse Practitioner; Visit Provider Internal Medicine Cardiovascular Disease | DX: I48.91 Unspecified atrial fibrillation (principal) | CPT/HCPCS: 93010 ==

== ENCOUNTER 2024-12-03 05:08 | Outpatient (BNV) | payer OTHER, MEDICARE, SELFPAY | END 2024-12-04 07:00 | PROVIDERS: Admitting Provider Student in an Organized Health Care Education/Training Program; Emergency Provider Emergency Medicine; PCP Nurse Practitioner; Visit Provider Internal Medicine Cardiovascular Disease | DX: I35.1 Nonrheumatic aortic (valve) insufficiency (principal); I34.0 Nonrheumatic mitral (valve) insufficiency; I36.1 Nonrheumatic tricuspid (valve) insufficiency; I82.220 Acute embolism and thrombosis of inferior vena cava | CPT/HCPCS: 93306 ==

== ENCOUNTER 2024-12-03 05:08 | Outpatient (BNV) | payer OTHER, MEDICARE, SELFPAY | END 2024-12-04 02:56 | PROVIDERS: Admitting Provider Student in an Organized Health Care Education/Training Program; Emergency Provider Emergency Medicine; PCP Nurse Practitioner; Visit Provider Radiology Diagnostic Radiology | DX: R06.00 Dyspnea, unspecified (principal) | CPT/HCPCS: 71045 ==

== ENCOUNTER → 2024-12-03 05:08 | Outpatient (BNV) | payer MEDICARE, SELFPAY | PROVIDERS: Admitting Provider Student in an Organized Health Care Education/Training Program; Emergency Provider Emergency Medicine; PCP Nurse Practitioner; Visit Provider Physician Assistant | DX: I48.20 Chronic atrial fibrillation, unspecified (principal); J18.9 Pneumonia, unspecified organism; J96.01 Acute respiratory failure with hypoxia | CPT/HCPCS: 99223; 99232; 99239 ==

== ENCOUNTER → 2024-12-03 | Outpatient (BNV) | payer MEDICARE, SELFPAY | PROVIDERS: Emergency Provider Emergency Medicine; PCP Nurse Practitioner; Visit Provider Radiology Diagnostic Radiology | DX: R06.00 Dyspnea, unspecified (principal); J84.9 Interstitial pulmonary disease, unspecified | CPT/HCPCS: 71250 ==

== ENCOUNTER 2024-12-11 21:46 | Outpatient (REF) | payer OTHER, SELFPAY ==
--- OUTSIDE RECORDS SUMMARY | 2024-12-11 21:56 | XMS_ITS | Patient Health Record ---
Author Organization 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) Active confirmed Problem 56632473 Hypercholesterol emia (E78.00) Active confirmed Plan Of Treatment No Information Insurance Providers Payer Name Payer Address Payer Phone Subscriber Number Group Number Insured Name Patient Relationship to Insured Coverage Start Date Coverage End Date [facility] [employer] Plan [address] [place] [address] [phone] [id number] RUBY HORVATH Self - patient is the insured Safety Insurance [address] [address] [place] [address] [phone] [id number] RUBY HORVATH Self - patient is the insured Medical (General) History Medical History History ICD Code atrial fibrillation, hypertension, glauc dimas
--- OUTSIDE RECORDS SUMMARY | 2024-12-11 21:56 | XMS_ITS | Clinical Summary ---
Author Organization [employer] Address [address] [place] [address] [address] [place] [address] Care Team Providers Care Greens Tier Name Role Phone Unavailable Primary Care Provider [...] Description 10/31/2024 11:00 AM EST Office Visit [facility] [address] [place] [id number] Fredy Soliz DMD 10/10/2024 2:00 PM EST Office Visit [facility] [address] [place] [id number] Mita Williamson from Last 3 Months Social [...]
--- OUTSIDE RECORDS SUMMARY | 2024-12-11 21:56 | XMS_ITS ---
Author Organization [facility] Care Team Providers Care Investor Relations Specialist Name Role Phone Josseline Ramos Unavailable Unavailable Anna Mejia Unavailable Unavailable Keri Watson Unavailable Unavailable Allergies and adverse reactions Code CodeSystem Substance Reaction Severity StartDate Concern Status Pollen Unknown 02/21/2023 active Care Team Name Role Address Phone Organization Dates Josseline Ramos PCP [address] [place] [address], [facility] (Office): : [facility] 02/21/2023 - 03/25/2023 Anna Mejia Attending Physician [address] [place] [address], [facility] (Office): : [facility] 02/21/2023 - 03/25/2023 Keri Watson Attending Physician [address] [place] [address], [facility] (Office): : [facility] 02/21/2023 - 03/25/2023 Immunizations Immunization Status Vaccine Details Vaccine Code CodeSystem Elan e Notes Influenza completed Influenza, split virus, trivalent, injectable, contains preservative Mfg: Influenza vaccine 141 CVX created date: 12/28/2021 administered date: 07/01/2021 SARS-COV-2 (COVID-19) completed SARS-COV-2 (COVID-19) vaccine, mRNA, spike protein, LNP, preservative free, 30 mcg/0.3mL dose Mfg: pfizer Step 2 of Multi-step with next step required 208 CVX created date: 12/21/2021 administered date: 11/01/2020 SARS-COV-2 (COVID-19) completed SARS-COV-2 (COVID-19) vaccine, mRNA, spike protein, LNP, preservative free, 30 mcg/0.3mL dose Mfg: pfiizer Step 1 of Multi-step with next step required 208 CVX created date: 12/21/2021 administered date: 11/01/2020 SARS-COV-2 (COVID-19) completed SARS-COV-2 (COVID-19) vaccine, mRNA, spike protein, LNP, preservative free, 30 mcg/0.3mL dose Mfg: pfizer Step 1 of Multi-step with next step required 208 CVX created date: 12/21/2021 administered date: 10/11/2020 SARS-COV-2 (COVID-19 BOOSTER) completed SARS-COV-2 (COVID-19) vaccine, mRNA, spike protein, LNP, preservative free, 30 mcg/0.3mL dose Mfg: pfizer 208 CVX created date: 12/21/2021 administered date: 09/24/2021 Mental Status Section Date Assessment Total Score Description 03/25/2023 BIMS 10 moderate cognit milady impairment CAM 2 Delirium indica aneesh PHQ-9 00 02/28/2023 BIMS 13 cognitively int act CAM 0 No delirium ind icated PHQ-9 00 Problems Problem # Description Date of onset Resolved Date Code CodeSystem Concern Status 1 CHRONIC ATRIAL FIBRILLATION, UNSPECIFIED 02/21/[address] active 2 DISORIENTATION, UNSPECIFIED 02/21/[address] active 3 ESSENTIAL (PRIMARY) HYPERTENSION 02/21/[address] active 4 HYPERLIPIDEMIA, UNSPECIFIED 02/21/[address] active 5 HYPO-OSMOLALITY AND HYPONATREMIA 02/21/[address] active 6 METABOLIC ENCEPHALOPATHY 02/21/[address] active 7 MUSCLE WEAKNESS (GENERALIZED) 02/21/[address] active 8 OTHER ABNORMALITIES OF GAIT AND MOBILITY 02/21/[address] active 9 OTHER CONSTIPATION 02/21/[address] active 10 OTHER SYMPTOMS AND SIGNS INVOLVING COGNITIVE FUNCTIONS AND AWARENESS 02/21/[address] active 11 PERSONAL HISTORY OF MALIGNANT NEOPLASM OF PROSTATE 02/21/[address] active 12 REPEATED FALLS 02/21/[address] ac tive 13 SYNDROME OF INAPPROPRIATE SECRETION OF ANTIDIURETIC HORMONE 02/21/[address] active 14 UNSPECIFIED FALL, SUBSEQUENT ENCOUNTER 02/21/[address] active 15 WEDGE COMPRESSION FRACTURE OF FIRST LUMBAR VERTEBRA, SUBSEQUENT ENCOUNTER FOR FRACTURE WITH ROUTINE HEALING 02/21/[address] active 16 AGE-RELATED NUCLEAR CATARACT, UNSPECIFIED EYE 12/20/2021 02/22/[address] completed 17 CHRONIC ATRIAL FIBRILLATION, UNSPECIFIED 12/20/2021 02/22/[address] completed 18 DIFFICULTY IN WALKING, NOT ELSEWHERE CLASSIFIED 12/20/2021 02/22/[address] completed 19 ESSENTIAL (PRIMARY) HYPERTENSION 12/20/2021 02/22/[address] completed 20 HYPERLIPIDEMIA, UNSPECIFIED 12/20/2021 02/22/[address] completed 21 MUSCLE WEAKNESS (GENERALIZED) 12/20/2021 02/22/[address] completed 22 OTHER CERVICAL DISC DEGENERATION, UNSPECIFIED CERVICAL REGION 12/20/2021 02/22/[address] completed 23 PERSONAL HISTORY OF MALIGNANT NEOPLASM OF PROSTATE 12/20/2021 02/22/[address] completed 24 REPEATED FALLS 12/20/2021 02/22/[address] completed 25 UNSPECIFIED FALL, SUBSEQUENT ENCOUNTER 12/20/2021 02/22/[address] completed 26 UNSPECIFIED FRACTURE OF RIGHT WRIST AND HAND, SUBSEQUENT ENCOUNTER FOR FRACTURE WITH ROUTINE HEALING 12/20/2021 02/22/[address] completed 27 UNSPECIFIED INJURY OF HEAD, SUBSEQUENT ENCOUNTER 12/20/2021 02/22/[address] completed Reason for Referral No Reasons for Referral Entered Social History Social History Observation Description Start Date End Date Code Code System Current Smoking Status Tobacco smoking consumption unknown 684534063 SNOMED CT Sex Assigned At Male 1935 71436-0 [facility] Vital Signs Code Code System Vitals Name Values and Units Timing Information 28281-9 [facility] Weight Ezedt=137.2 Units=Lbs 70490-9 [facility] Pain Level Value=0.0 03/25/2023 8462-4 [facility] Blood Pressure-Diastolic Value=65 Un its=mmHg 03/25/2023 8480-6 [facility] Blood Pressure-Systolic Abima=453 Un its=mmHg 03/25/2023 8310-5 [facility] Body Temperature Value=98.2 Units=?? F 03/25/2023 8867-4 [facility] Heart rate Value=69.0 Units=/min 30931-1 [facility] O2 % BldC Oximetry Value=95.0 Units= % 03/25/2023 9279-1 [facility] Respiratory Rate Value=18.0 Units=/m in 03/24/2023 8302-2 [facility] Height Value=69.0 Units=Inches 02/22/2023
--- OUTSIDE RECORDS SUMMARY | 2024-12-11 21:56 | XMS_ITS | Continuity of Care Document ---
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 It does not include entries that were removed or entered in error. Problem Status Onset Date Problem Type Date of Resolution Comments Source Health Maintenance Active 011 Condition Mar 24, 2011 Entered By: KIT CAMARILLO Comment: TD VACCINE 03/24/2011 left deltoidJul 2011 Entered By: JULIO LAGUNA Comment: Colonoscopy 12/01/11 DiverticulosisOct 2011 Entered By: JULIO LAGUNA Comment: Zoster Vaccine 07/12/12Jun 2012 Entered By: JULIO LAGUNA Comment: TDAP Vaccine 02/28/13 [facility] AF - Atrial fibrillation Active Condition [facility] ([facility]) Atrial fibrillation and flutter Active Condition [facility] Benign essential hypertension Active Condition [facility] ([facility]) Benign essential hypertension (SNOMED CT 5903610) Active Condition [facility] Cancer, prostate, primary Active Condition [facility] History of appendicectomy Active Condition [facility] ([facility]) History of colonoscopy Active Condition Dec 22, 2020 Entered By: KIT CAMARILLO Comment: 11/2011 diverticulosisApr 2020 Entered By: KIT CAMARILLO Comment: due 11/2021 [facility] History of knee surgery Active Condition [facility] ([facility]) History of vertebral fracture Active Condition [facility]) HLD - Hyperlipidaemia Active Condition [facility] ([facility]) Hyperlipidemia (SNOMED CT 21599413) Active Condition [facility] Long-term current use of anticoagulant Active Condition [facility] Prostate cancer (SNOMED CT 196448810) Active Condition [facility] Prostate specific antigen abnormal Active Condition Mar 13 4 Entered By: KIT CAMARILLO Comment: patient refuses urology evaluationJul 2013 Entered By: KIT CAMARILLO Comment: psa 4.28- 05/2013 [facility] Hypertension Inactive Condition 12/28/2007 [facility] Diagnosis: ICD-10-CM Z46.1 Encounter for fitting and adjustment of hearing aid Active Diagnosis [facility] Diagnosis: ICD-10-CM Z04.89 Encounter for examination and observation for oth reasons Active Diagnosis [facility] Diagnosis: ICD-10-CM L89.899 Pressure ulcer of other site, unspecified stage Active Diagnosis [facility] ([facility]) Diagnosis: ICD-10-CM I10 Essential (primary) hypertension Active Diagnosis [facility] ([facility]) Diagnosis: ICD-10-CM I48.91 Unspecified atrial fibrillation Active Diagnosis [facility] ([facility]) Diagnosis: ICD-10-CM Z51.81 Encounter for therapeutic drug level monitoring Active Diagnosis [facility] (631GE) Diagnosis: ICD-10-CM M54.50 Low back pain, unspecified Active Diagnosis [facility] ([facility]) Diagnosis: ICD-10-CM Z79.01 half-way (current) use of anticoagulants Active Diagnosis [facility] Medications Combined list of outpatient medications from Department of Defense and [facility] Affairs facilities.Medications provided include 1) outpatient medications from the last 15 months, and 2) patient-reported medications. Medication Details Route Status Patient Instructions Prescription Expires Prescription Number Last Dispense Date Ordering Provider Order Date Order Qty Source APIXABAN 5MG TAB TAKE ONE TABLET BY MOUTH EVERY 12 HOURS ORAL DISCONT INUED BY PROVIDE R 11/21/2024 [id number] LILI MARIE LISA M 2023 180 [facility] APIXABAN 5MG TAB TAKE ONE TABLET BY MOUTH EVERY 12 HOURS ORAL ACTIVE LILI MARIEUGHN M 2024 [facility]) CHOLECALCIF KRZYSZTOF 25MCG (1,000UNIT) TAB TAKE ONE TABLET BY MOUTH EVERY DAY ORAL ACTIVE Scarlet CAMARILLO 2011 [facility] DOCUSATE NA 100MG CAP TAKE ONE CAPSULE BY MOUTH TWICE DAILY NEEDED FOR CONSTIPA TION TO SOFTEN STOOL ORAL ACTIVE 02/09/2025 [id number] 4 LILI MARIE 2023 200 [facility]) DOCUSATE NA 100MG CAP TAKE TWO CAPSULES BY MOUTH TWICE A DAY FOR CONSTIPA TION ORAL 07/11/2024 [id number] MIRIAM OSPINA 2022 300 [facility] LISINOPRIL 20MG TAB TAKE ONE TABLET BY MOUTH EVERY DAY FOR BLOOD PRESSURE ORAL 05/11/2024 [id number] MIRIAM OSPINA 2022 90 [facility] LISINOPRIL 20MG TAB TAKE ONE TABLET BY MOUTH ONCE DAILY TO CONTROL BLOOD PRESSURE ORAL 11/21/2024 [id number] LILI MARIE 2023 90 [facility] METOPROLOL SUCCINATE 25MG TAB,SA TAKE ONE TABLET BY MOUTH ONCE DAILY FOR BLOOD PRESSURE /HEART ORAL ACTIVE 02/09/2025 [id number] 4 LILI MARIE 2023 90 [facility]) METOPROLOL SUCCINATE 25MG TAB,SA TAKE ONE TABLET BY MOUTH EVERY DAY FOR BLOOD PRESSURE /HEART ORAL 02/01/2024 [id number] 4 Scarlet CAMARILLO 2022 90 [facility] MULTIVIT/OP HTH AREDS2/LUTE IN/ZEAXANTH IN CAP/TAB TAKE 1 CAPSULE BY MOUTH TWICE DAILY FOR VITAMIN SUPPLEME NTATION IN THE MORNING AND EVENING, WITH FOOD ORAL ACTIVE 02/09/2025 [id number] 4 LILI MARIE 2023 120 [facility] SIMVASTATIN 40MG TAB TAKE ONE-HALF TABLET BY MOUTH AT BEDTIME TO LOWER CHOLESTE ROL ORAL 02/01/2024 [id number] 4 Scarlet CAMARILLO 2022 45 [facility] SIMVASTATIN 80MG TAB TAKE ONE-HALF TABLET BY MOUTH ONCE DAILY FOR CHOLESTE ROL ORAL 11/21/2024 [id number] 4 LILI MARIE 2023 45 [facility] SODIUM FLUORIDE 1.1% GEL,DENT USE A PEA SIZED AMOUNT FOR DENTAL USE EVERY DAY FOR PREVENTI ON OF TOOTH PLAQUE DENTAL 05/18/2024 [id number] 4 CARI, RIDEVI 2022 56 [facility] SODIUM FLUORIDE 1.1% TOOTHPASTE BRUSH SMALL AMOUNT TO TEETH ONCE DAILY FOR TOOTH DECAY PREVENTI ON DENTAL ACTIVE 02/09/2025 [id number] LILI MARIE 2023 51 [facility] ([facility]) Allergies, Adverse Reactions, Alerts Combined list of allergies from Department of Defense and Veterans Affairs facilities. It does not include entries that were removed or entered in error. Substance Category Reaction Severity Reaction type Status Date Reported Comments Source POLLEN Propensity to adverse reaction (finding) ITCHING,WA TERING EYES active 12/16/2003 [facility] Immunizations Combined list of available immunizations from the Department of Defense and Veterans Affairs facilities. Immunization Series Date Given Administered By Site Reaction Lot Number CVX Code Drug Syrup Blender Status Comments Source COVID-19 (MODERNA), MRNA, LNP-S, PF, 50 MCG/0.5 ML (AGES 12+ YEARS) 2022 312 complet ed [facility] [place] [facility] INFLUENZA, HIGH-DOSE, QUADRIVALENT 2022 197 complet ed [facility] [place] [facility] [facility] COVID-19 (PFIZER), MRNA, LNP-S, BIVALENT, PF, 30 MCG/0.3 ML DOSE 2022 300 complet ed [facility] [place] [facility] [facility] COVID-19 (PFIZER), MRNA, LNP-S, BIVALENT, PF, 30 MCG/0.3 ML DOSE 2021 300 complet ed [facility] [place] [facility] INFLUENZA, UNSPECIFIED FORMULATION 11/21/ 2022 88 complet ed received flu vaccine via Outside pcp at [facility] TD(ADULT) UNSPECIFIED FORMULATION 2021 139 complet ed received flu vaccine via Outside pcp at [facility]/ ic documenta tion [facility] INFLUENZA, UNSPECIFIED FORMULATION 2020 88 complet ed [facility] COVID-19 (PFIZER), MRNA, LNP-S, PF, 30 MCG/0.3 ML DOSE 2 2020 208 complet ed PFR; [id number]; 1 [facility] COVID-19 (PFIZER), MRNA, LNP-S, PF, 30 MCG/0.3 ML DOSE 1 2020 208 complet ed PFR; [id number]; 1 [facility] INFLUENZA, INJECTABLE, QUADRIVALENT, PRESERVATIVE FREE 2019 150 complet ed [facility] ZOSTER RECOMBINANT 2 2019 187 complet ed [facility] INFLUENZA, TRIVALENT, ADJUVANTED 2018 168 complet ed [facility] ZOSTER RECOMBINANT 1 2018 187 complet ed [facility] INFLUENZA, SEASONAL, INJECTABLE 2017 141 complet ed Site: Left [facility] PNEUMOCOCCAL CONJUGATE PCV 13 2017 133 complet ed [facility] INFLUENZA, SEASONAL, INJECTABLE 2016 141 complet ed [facility] FLU,3 YRS (HISTORICAL) 2015 88 complet ed Site: Left [facility] FLU,3 YRS (HISTORICAL) 2014 88 complet ed [facility]: [facility] FLU,3 YRS (HISTORICAL) 2013 88 complet ed Site: Left [facility] FLU,3 YRS (HISTORICAL) 2012 88 complet ed Site: Left [facility] DTAP, UNSPECIFIED FORMULATION 2012 107 complet ed Site: Left [facility] TDAP 2012 115 complet ed [facility] [place] VARICELLA 2011 21 [facility]) 2011 88 complet ed Site: Left [facility] PNEUMOCOCCAL POLYSACCHARID E PPV23 2011 33 complet ed [facility] FLU,3 YRS (HISTORICAL) 2011 88 complet ed Site: Left Deltoid [facility] TD(ADULT) UNSPECIFIED FORMULATION 2010 139 complet ed Site: Left Deltoid [facility] FLU,3 YRS (HISTORICAL) 2009 88 complet ed Site: Left Deltoid [facility] NOVEL INFLUENZA-H1N 1-09, ALL FORMULATIONS 2009 128 complet ed [employer] [facility] FLU,3 YRS (HISTORICAL) 2008 88 complet ed Site: Right Deltoid [facility] FLU,3 YRS (HISTORICAL) 2007 88 complet ed Site: Left Deltoid [facility] FLU,3 YRS (HISTORICAL) 2006 88 complet ed Site: Left Deltoid [facility] FLU,3 YRS (HISTORICAL) 2005 MATT JARVIS 88 complet ed [facility] FLU,3 YRS (HISTORICAL) 2004 FLAKO FUNEZ AE 88 comple t ed [facility] FLU,3 YRS (HISTORICAL) 2003 SUMEET LARKIN 88 complet ed [facility] PNEUMOCOCCAL, UNSPECIFIED FORMULATION 2003 109 complet ed Site: Left [facility] PNEUMOCOCCAL POLYSACCHARID E PPV23 2003 33 complet ed [facility] FLU,3 YRS (HISTORICAL) 2000 88 complet ed [facility] FLU,3 YRS (HISTORICAL) 1998 88 complet ed [facility] Results Combined list of recent chemistry, hematology and other laboratory results from Department of Defense and Veterans Affairs, ranging from 15 months to all on record, depending upon the facility. Order Name Results Value Reference Range Date Interpretation Specimen Comments Source LIVER FUNCTION PROTEIN [MASS/VOLU ME] IN SERUM OR PLASMA 6.7 g/dL 6.0 - 8.3 02/08 Specimen Type: SERUM No comment entered. Ordering Provider: SKYLER MARIE Report Released Date/Time: February 09, 2024 09:34 AM Reporting Lab: [facility] [place] [place] [facility] [address] [facility] [address] Performing Lab: [facility] [place] [address] [address] [facility] [place] [facility] LIVER FUNCTION ALBUMIN [MASS/VOLU ME] IN SERUM OR PLASMA 3.7 g/dL 3.5 - 5.0 02/08 Specimen Type: SERUM No comment entered. Ordering Provider: SKYLER MARIE Report Released Date/Time: February 09, 2024 09:34 AM Reporting Lab: [facility] [place] [address] [address] Performing Lab: [facility] [place] [address] [address] [facility] [place] [facility] LIVER FUNCTION ALKALINE PHOSPHATAS E [ENZYMATIC ACTIVITY/V OLUME] IN SERUM OR PLASMA 95 U/L 40 - 150 02/08 Specimen Type: SERUM No comment entered. Ordering Provider: SKYLER MARIE Report Released Date/Time: February 09, 2024 09:34 AM Reporting Lab: [facility] [place] [facility] [address] [facility] [address] Performing Lab: [facility] [place] [place] [address] [address] [facility] [place] [place] [facility] LIVER FUNCTION ASPARTATE AMINOTRANS FERASE [ENZYMATIC ACTIVITY/V OLUME] IN SERUM OR PLASMA 19 U/L 5 - 34 02/08 Specimen Type: SERUM No comment entered. Ordering Provider: SKYLER MARIE Report Released Date/Time: February 09, 2024 09:34 AM Reporting Lab: [facility] [place] [facility] [address] [facility] [address] Performing Lab: [facility] [place] [facility] [address] [facility] [address] [facility] [place] [place] [facility] LIVER FUNCTION ALANINE AMINOTRANS FERASE [ENZYMATIC ACTIVITY/V OLUME] IN SERUM OR PLASMA 17 U/L 02/08 Specimen Type: SERUM No comment entered. Ordering Provider: SKYLER MARIE Report Released Date/Time: February 09, 2024 09:34 AM Reporting Lab: [facility] [place] [facility] [address] [facility] [address] Performing Lab: [facility] [place] [facility] [address] [facility] [address] [facility] TRN [facility] LIVER FUNCTION BILIRUBIN. TOTAL [MASS/VOLU ME] IN SERUM OR PLASMA 0.6 mg/dL 0.2 - 1.2 02/08 Specimen Type: SERUM No comment entered. Ordering Provider: SKYLER MARIE Report Released Date/Time: February 09, 2024 09:34 AM Reporting Lab: [facility] [place] [facility] [address] [facility] [address] Performing Lab: [facility] [address] [facility] [address] [facility] CBC LEUKOCYTES [#/VOLUME] IN BLOOD BY AUTOMATED COUNT 7.62 10*3/uL 4.50 - 11.00 02/08 Specimen Type: BLOOD No comment entered. Ordering Provider: SKYLER MARIE Report Released Date/Time: February 09, 2024 09:34 AM Reporting Lab: [facility] [place] [facility] [address] [facility] [address] Performing Lab: [facility] [place] [facility] [address] [facility] [address] [facility] CBC ERYTHROCYT ES [#/VOLUME] IN BLOOD BY AUTOMATED COUNT 4.34 10*6/uL 4.23 - 5.66 02/08 Specimen Type: BLOOD No comment entered. Ordering Provider: SKYLER MARIE Report Released Date/Time: February 09, 2024 09:34 AM Reporting Lab: [facility] [place] [facility] [address] [facility] [address] Performing Lab: [facility] [place] [facility] [address] [facility] [address] [facility] [place] [facility] CBC HEMOGLOBIN [MASS/VOLU ME] IN BLOOD 13.6 g/dL 12.8 - 17 02/08 Specimen Type: BLOOD No comment entered. Ordering Provider: SKYLER MARIE Report Released Date/Time: February 09, 2024 09:34 AM Reporting Lab: [facility] [place] [facility] [address] [facility] [address] Performing Lab: [facility] [place] [facility] [address] [facility] [address] [facility] [place] [facility] CBC HEMATOCRIT [VOLUME FRACTION] OF BLOOD BY AUTOMATED COUNT 40.2 39.2 - 50.4 02/08 Specimen Type: BLOOD No comment entered. Ordering Provider: SKYLER MARIE Report Released Date/Time: February 09, 2024 09:34 AM Reporting Lab: [facility] [place] [facility] [address] [facility] [address] Performing Lab: [facility] [place] [facility] [address] [facility] [address] [facility] [place] [facility] CBC MCV [ENTITIC VOLUME] BY AUTOMATED COUNT 92.6 fL 82 - 99 02/08 Specimen Type: BLOOD No comment entered. Ordering Provider: SKYLER MARIE Report Released Date/Time: February 09, 2024 09:34 AM Reporting Lab: [facility] [place] [facility] [address] [facility] [address] Performing Lab: [facility] [place] [facility] [address] [facility] [address] [facility] [place] [place] [facility] CBC MCHC [MASS/VOLU ME] BY AUTOMATED COUNT 33.8 g/dL 30.8 - 35.1 02/08 Specimen Type: BLOOD No comment entered. Ordering Provider: SKYLER MARIE Report Released Date/Time: February 09, 2024 09:34 AM Reporting Lab: [facility] [place] [facility] [address] [facility] [address] Performing Lab: [facility] [place] [facility] [address] [facility] [address] [facility] [place] [facility] CBC PLATELETS [#/VOLUME] IN BLOOD BY AUTOMATED COUNT 267 10*3/uL 140 - 360 02/08 Specimen Type: BLOOD No comment entered. Ordering Provider: SKYLER MARIE Report Released Date/Time: February 09, 2024 09:34 AM Reporting Lab: [facility] [place] [facility] [address] [facility] [address] Performing Lab: [facility] [place] [facility] [address] [facility] [address] [facility] [place] [facility] CBC ERYTHROCYT E DISTRIBUTI ON WIDTH [RATIO] BY AUTOMATED COUNT 13.0 12.0 - 16.0 02/08 Specimen Type: BLOOD No comment entered. Ordering Provider: SKYLER MARIE Report Released Date/Time: February 09, 2024 09:34 AM Reporting Lab: [facility] [place] [facility] [address] [facility] [address] Performing Lab: [facility] [place] [facility] [address] [facility] [address] [facility] [place] [facility] CBC MCH [ENTITIC MASS] BY AUTOMATED COUNT 31.3 pg 26.2 - 32.6 02/08 Specimen Type: BLOOD No comment entered. Ordering Provider: SKYLER MARIE Report Released Date/Time: February 09, 2024 09:34 AM Reporting Lab: [facility] [place] [facility] [address] [facility] [address] Performing Lab: [facility] [place] [address] [address] [facility] [place] [facility] PT & INR (COUMADI N) INR IN PLATELET POOR PLASMA BY COAGULATIO N ASSAY 1.1 02/08 Specimen Type: PLASMA No comment entered. Ordering Provider: SKYLER MARIE Report Released Date/Time: February 09, 2024 09:34 AM Reporting Lab: [facility] [place] [facility] [address] [facility] [address] Performing Lab: [facility] [place] [facility] [address] [facility] [address] [facility] [place] [facility] PT & INR (COUMADI N) PROTHROMBI N TIME (PT) 12.7 s 10.0 - 13.1 02/08 Specimen Type: PLASMA No comment entered. Ordering Provider: SKYLER MARIE Report Released Date/Time: February 09, 2024 09:34 AM Reporting Lab: [facility] [place] [facility] [address] [facility] [address] Performing Lab: [facility] [place] [address] [address] [facility] [place] [facility] LIPID PANEL, NON FASTING CHOLESTERO L [MASS/VOLU ME] IN SERUM OR PLASMA 116 mg/dL 02/08 Specimen Type: SERUM No comment entered. Ordering Provider: SKYLER MARIE Report Released Date/Time: February 09, 2024 09:35 AM Reporting Lab: [facility] [place] [facility] [address] [facility] [address] Performing Lab: [facility] [place] [facility] [address] [facility] [address] [facility] [place] [facility] LIPID PANEL, NON FASTING TRIGLYCERI DE [MASS/VOLU ME] IN SERUM OR PLASMA 133 mg/dL 0 - 150 02/08 Specimen Type: SERUM No comment entered. Ordering Provider: SKYLER MARIE Report Released Date/Time: February 09, 2024 09:35 AM Reporting Lab: [facility] [place] [facility] [address] [facility] [address] Performing Lab: [facility] [place] [facility] [address] [facility] [address] [facility] [place] [facility] LIPID PANEL, NON FASTING CHOLESTERO L IN LDL [MASS/VOLU ME] IN SERUM OR PLASMA BY ROSA Fuller 51 mg/dL 0 - 129 02/08 Specimen Type: SERUM No comment entered. Ordering Provider: SKYLER MARIE Report Released Date/Time: February 09, 2024 09:35 AM Reporting Lab: [facility] [address] Performing Lab: [facility]ITAL[facility] [address] [facility] [address] [facility] LIPID PANEL, NON FASTING CHOLESTERO L.TOTAL/CH OLESTEROL IN HDL [MASS RATIO] IN SERUM OR PLASMA 3.1 02/08 Specimen Type: SERUM No comment entered. Ordering Provider: SKYLER MARIE Report Released Date/Time: February 09, 2024 09:35 AM Reporting Lab: [facility]ITAL[facility] [address] [address] Performing Lab: [facility]ITAL[facility] [address] [address] [facility]ITALRBEAC[facility]ITALN [facility]ITAL[facility] LIPID PANEL, NON FASTING CHOLESTERO L IN HDL [MASS/VOLU ME] IN SERUM OR PLASMA 38 mg/dL 40 - 60 02/08 L Specimen Type: SERUM No comment entered. Ordering Provider: SKYLER MARIE Report Released Date/Time: February 09, 2024 09:35 AM Reporting Lab: [facility] [place] [place] [address] [address] Performing Lab: [facility] [address] [address] [facility] BASIC METABOLI C PANEL (non-fas ting) UREA NITROGEN [MASS/VOLU ME] IN SERUM OR PLASMA 12 mg/dL 7 - 25 02/08 Specimen Type: SERUM No comment entered. Ordering Provider: SKYLER MARIE Report Released Date/Time: February 09, 2024 09:35 AM Reporting Lab: [facility] TRN [address] [address] Performing Lab: [facility] TRN [facility] [address] [facility] [address] [facility] TRN [facility] BASIC METABOLI C PANEL (non-fas ting) GLUCOSE [MASS/VOLU ME] IN SERUM OR PLASMA 107 mg/dL 65 - 100 02/08 H Specimen Type: SERUM No comment entered. Ordering Provider: SKYLER MARIE Report Released Date/Time: February 09, 2024 09:35 AM Reporting Lab: [facility]ITALRHARTSELLE [facility] CENTERTRN [address] [address] Performing Lab: [facility]ITALRBEAC[facility]ITALN [address] [address] [facility] BASIC METABOLI C PANEL (non-fas ting) SODIUM [MOLES/VOL UME] IN SERUM OR PLASMA 135 mmol/L 135 - 145 02/08 Specimen Type: SERUM No comment entered. Ordering Provider: SKYLER MARIE Report Released Date/Time: February 09, 2024 09:35 AM Reporting Lab: [facility]ITALRBEACON [facility]IOR[facility]OSPITALN [address] [address] Performing Lab: [facility]ITALRL TRN [address] [address] [facility] PANEL (non-fas ting) POTASSIUM [MOLES/VOL UME] IN SERUM OR PLASMA 4.3 mmol/L 3.5 - 5.0 02/08 Specimen Type: SERUM No comment entered. Ordering Provider: SKYLER MARIE Report Released Date/Time: February 09, 2024 09:35 AM Reporting Lab: [facility] TRN [facility] [address] Performing Lab: [facility]RL [facility] [address] [address] [facility]ITALN [facility] PANEL (non-fas ting) CHLORIDE [MOLES/VOL UME] IN SERUM OR PLASMA 103 mmol/L 100 - 110 02/08 Specimen Type: SERUM No comment entered. Ordering Provider: SKYLER MARIE Report Released Date/Time: February 09, 2024 09:35 AM Reporting Lab: [facility]OSPITALN [address] [address] Performing Lab: [facility]ITALN [address] [address] [facility] PANEL (non-fas ting) CARBON DIOXIDE, TOTAL [MOLES/VOL UME] IN SERUM OR PLASMA 25 meq/L 20 - 30 02/08 Specimen Type: SERUM No comment entered. Ordering Provider: SKYLER MARIE Report Released Date/Time: February 09, 2024 09:35 AM Reporting Lab: [address] [address] Performing Lab: [address] [address] [facility] PANEL (non-fas ting) CREATININE [MASS/VOLU ME] IN SERUM OR PLASMA 0.67 mg/dL 0.50 - 1.40 02/08 Specimen Type: SERUM No comment entered. Ordering Provider: SKYLER MARIE Report Released Date/Time: February 09, 2024 09:35 AM Reporting Lab: [address] [address] Performing Lab: [facility]ITALRHARTSELLE MEDICAL CENTERTRN [address] [address] [facility] PANEL (non-fas ting) GLOMERULAR FILTRATION RATE/1.73 SQ M.PREDICTE D [VOLUME RATE/AREA] IN SERUM, PLASMA OR BLOOD BY CREATININE -BASED FORMULA (CKD-EPI 2020) >90mL/mi n 60 02/08 Specimen Type: SERUM No comment entered. Ordering Provider: SKYLER MARIE Report Released Date/Time: February 09, 2024 09:35 AM Reporting Lab: [facility]ITALRBEACON [facility]IOR[facility]OSPITALN [place] [facility] [address] [facility] [address] Performing Lab: [facility] [address] [facility] [address] [facility]ITALUSE [facility] URINALYS IS COLOR OF URINE Light-Or iliana 11/20 Specimen Type: URINE Comment: If Glucose = >500 and Ketones are positive, please alert the Physician. Ordering Provider: SKYLER MARIE Report Released Date/Time: Nov 14, 2023 04:05 PM Reporting Lab: [facility]ITALUSERICH[facility] [address] [facility] [address] Performing Lab: [facility]ITALUSE[address] [address] [place] ([facility]) URINALYS IS APPEARANCE OF URINE Ex.Turbi d 11/20 Specimen Type: URINE Comment: If Glucose = >500 and Ketones are positive, please alert the Physician. Ordering Provider: SKYLER MARIE Report Released Date/Time: Nov 14, 2023 04:05 PM Reporting Lab: [facility] HOSPITALUSETS [address] [address] Performing Lab: [facility]ITALUSE[address] [address] [place] [facility]) URINALYS IS GLUCOSE [MASS/VOLU ME] IN URINE NEGATIVE mg/dL 11/20 Specimen Type: URINE Comment: If Glucose = >500 and Ketones are positive, please alert the Physician. Ordering Provider: SKYLER MARIE Report Released Date/Time: Nov 14, 2023 04:05 PM Reporting Lab: [facility]ITALUSE[address] [address] Performing Lab: [facility]ITALUSE[address] [address] [place] [facility]) URINALYS IS KETONES [MASS/VOLU ME] IN URINE BY TEST STRIP NEGATIVE mg/dL 11/20 Specimen Type: URINE Comment: If Glucose = >500 and Ketones are positive, please alert the Physician. Ordering Provider: SKYLER MARIE Report Released Date/Time: Nov 14, 2023 04:05 PM Reporting Lab: [address] [address] Performing Lab: [address] [address] [place] [facility] URINALYS IS ERYTHROCYT ES [PRESENCE] IN URINE SEDIMENT BY LIGHT MICROSCOPY NEGATIVE mg/dL 11/20 Specimen Type: URINE Comment: If Glucose = >500 and Ketones are positive, please alert the Physician. Ordering Provider: SKYLER MARIE Report Released Date/Time: Nov 14, 2023 04:05 PM Reporting Lab: [address] [address] Performing Lab: [address] [address] [place] [facility]) URINALYS IS PROTEIN [MASS/VOLU ME] IN URINE BY TEST STRIP NEGATIVE mg/dL 11/20 Specimen Type: URINE Comment: If Glucose = >500 and Ketones are positive, please alert the Physician. Ordering Provider: SKYLER MARIE Report Released Date/Time: Nov 14, 2023 04:05 PM Reporting Lab: [address] [address] Performing Lab: [address] [address] [place] [facility]) URINALYS IS NITRITE [PRESENCE] IN URINE NEGATIVE mg/dL 11/20 Specimen Type: URINE Comment: If Glucose = >500 and Ketones are positive, please alert the Physician. Ordering Provider: SKYLER MARIE Report Released Date/Time: Nov 14, 2023 04:05 PM Reporting Lab: [address] [address] Performing Lab: [address] [address] [place] [facility]) URINALYS IS BILIRUBIN. TOTAL [PRESENCE] IN URINE NEGATIVE mg/dL 11/20 Specimen Type: URINE Comment: If Glucose = >500 and Ketones are positive, please alert the Physician. Ordering Provider: SKYLER MARIE Report Released Date/Time: Nov 14, 2023 04:05 PM Reporting Lab: [address] [address] Performing Lab: [address] [address] [place]) URINALYS IS SPECIFIC GRAVITY OF URINE BY REFRACTOME TRY 1.024 1.016 - 1.022 11/20 H Specimen Type: URINE Comment: If Glucose = >500 and Ketones are positive, please alert the Physician. Ordering Provider: SKYLER MARIE Report Released Date/Time: Nov 14, 2023 04:05 PM Reporting Lab: [address] [address] Performing Lab: [address] [address] [place] [facility]) URINALYS IS PH OF URINE BY TEST STRIP 5.5 5.0 - 9.0 11/20 Specimen Type: URINE Comment: If Glucose = >500 and Ketones are positive, please alert the Physician. Ordering Provider: SKYLER MARIE Report Released Date/Time: Nov 14, 2023 04:05 PM Reporting Lab: [address] [address] Performing Lab: [address] [address] [place] [facility]) URINALYS IS UROBILINOG EN [MASS/VOLU ME] IN URINE BY TEST STRIP <2.0mg/d L <2.0 - 2.0 11/20 Specimen Type: URINE Comment: If Glucose = >500 and Ketones are positive, please alert the Physician. Ordering Provider: SKYLER MARIE Report Released Date/Time: Nov 14, 2023 04:05 PM Reporting Lab: [address] [address] Performing Lab: [address] [address] [place] [facility]) URINALYS IS LEUKOCYTE ESTERASE [PRESENCE] IN URINE BY TEST STRIP NEGATIVE 11/20 Specimen Type: URINE Comment: If Glucose = >500 and Ketones are positive, please alert the Physician. Ordering Provider: SKYLER MARIE Report Released Date/Time: Nov 14, 2023 04:05 PM Reporting Lab: [address] [address] Performing Lab: [address] [address] [place] [facility]) MICROALB UMIN CREATINI NE RATIO PANEL MICROALBUM IN/CREATIN INE [MASS RATIO] IN URINE 19.8 mg/g 0 - 29.9 11/20 Specimen Type: URINE No comment entered. Ordering Provider: SKYLER MARIE Report Released Date/Time: Nov 14, 2023 04:05 PM Reporting Lab: [address] [address] Performing Lab: [address] [address] [place] [facility]) MICROALB UMIN CREATINI NE RATIO PANEL MICROALBUM IN [MASS/VOLU ME] IN URINE 1.7 mg/dL 11/20 Specimen Type: URINE No comment entered. Ordering Provider: SKYLER MARIE Report Released Date/Time: Nov 14, 2023 04:05 PM Reporting Lab: [address] [address] Performing Lab: [address] [address] [facility]) MICROALB UMIN CREATINI NE RATIO PANEL CREATININE [MASS/VOLU ME] IN URINE 85.93 mg/dL 11/20 Specimen Type: URINE No comment entered. Ordering Provider: SKYLER MARIE Report Released Date/Time: Nov 14, 2023 04:05 PM Reporting Lab: [address] [address] Performing Lab: [address] [address] [facility]) VITAMIN D (25-OH) 25-HYDROXY VITAMIN D3 [MASS/VOLU ME] IN SERUM OR PLASMA 28 ng/mL 20 - 50 11/20 Specimen Type: SERUM No comment entered. Ordering Provider: SKYLER MARIE Report Released Date/Time: Nov 14, 2023 04:05 PM Reporting Lab: [address] [address] Performing Lab: [address] [address] [facility] [facility]) VITAMIN B12 COBALAMIN (VITAMIN B12) [MASS/VOLU ME] IN SERUM OR PLASMA 351 pg/mL 200 - 900 11/20 Specimen Type: SERUM No comment entered. Ordering Provider: SKYLER MARIE Report Released Date/Time: Nov 14, 2023 04:05 PM Reporting Lab: [address] [address] Performing Lab: [address] [address] [place] [facility]) TSH THYROTROPI N [UNITS/VOL UME] IN SERUM OR PLASMA 4.87 u[IU]/mL 0.35 - 5.00 11/20 Specimen Type: SERUM No comment entered. Ordering Provider: SKYLER MARIE Report Released Date/Time: Nov 14, 2023 04:05 PM Reporting Lab: [address] [address] Performing Lab: [address] [address] [place] [facility]) Vital Signs Combined list of inpatient and outpatient Vital Signs from Department of Defense and Veterans Affairs, ranging from 12 months to all on record, depending upon the facility. Vital Sign Value Date Comments Source SYSTOLIC BLOOD PRESSURE 128 05/02/2024 09:59:13 [facility] ([facility]) DIASTOLIC BLOOD PRESSURE 68 05/02/2024 09:59:13 [place] [facility]) PULSE OXIMETRY 99 05/02/2024 09:59:13 [place] ([facility]) WEIGHT 144.6 05/02/2024 09:59:13 [place] ([facility]) PAIN 0 05/02/2024 09:59:13 [place] ([facility]) TEMPERATURE 97.6 05/02/2024 09:59:13 [place] ([facility]) PULSE 90 05/02/2024 09:59:13 [place] ([facility]) RESPIRATION 20 05/02/2024 09:59:13 [place] ([facility]) SYSTOLIC BLOOD PRESSURE 133 03/07/2024 14:04:26 [place] ([facility]) DIASTOLIC BLOOD PRESSURE 77 03/07/2024 14:04:26 [place] ([facility]) PULSE OXIMETRY 96 03/07/2024 14:04:26 [place] ([facility]) WEIGHT 144.8 03/07/2024 14:04:26 [place] ([facility]) TEMPERATURE 98.1 03/07/2024 14:04:26 [place] ([facility]) PULSE 70 03/07/2024 14:04:26 [place] ([facility]) SYSTOLIC BLOOD PRESSURE 136 02/21/2024 11:36:36 [place] ([facility]) DIASTOLIC BLOOD PRESSURE 84 02/21/2024 11:36:36 [place] ([facility]) PULSE OXIMETRY 99 02/21/2024 11:36:36 [place] ([facility]) WEIGHT 144.8 02/21/2024 11:36:36 [place] ([facility]) PAIN 0 02/21/2024 11:36:36 [place] ([facility]) TEMPERATURE 98 02/21/2024 11:36:36 [place] ([facility]) PULSE 87 02/21/2024 11:36:36 [place] ([facility]) RESPIRATION 20 02/21/2024 11:36:36 [place] ([facility]) Encounters Combined list of: 1) Encounters from Department of Veterans Affairs facilities going backup to the last 18 months, not all VA inpatient encounters are included; 2) Encounters from the Department of Defense facilities going backup to 280 months. Location Location Details Encounter Type Encounter Number Reason For Visit Attending Provider ADM Date DC Date Status Disposition Source [facility] Outpatient Encounter [id number] 06/17 [facility] Outpatient Encounter [id number] 06/22 [facility] Outpatient Encounter [id number] 07/04 [facility] Outpatient Encounter [id number] 07/11 [facility] Outpatient Encounter [id number] 07/12 [facility] Outpatient Encounter [id number] 07/12 [facility] [place] [facility] Outpatient Encounter [id number] 08/19 [place] [facility] [place] [place] [facility] [place] [facility] Outpatient Encounter [id number] 10/18 [place] [facility] Outpatient Encounter [id number] 10/18 [facility] Outpatient Encounter [id number] 10/25 [facility] [place] [facility] Outpatient Encounter [id number] 10/25 [facility] [place] [place] [facility] [place] Out[facility] Encounter [id number] 10/26 [facility] [place] [place] [facility] [facility] ([facility]) OFFICE O/P EST HI 40 MIN [id number] Diagnos is: ICD-10- CM I10 Essenti al (primar y) hyperte JORDAN Pal 11/20 [place] [facility] [place] QNHP OL DIG ASSMT&MGMT 5-10 [id number] Diagnos is: ICD-10- CM Z79.01 half-way (curren t) use of anticoa ENMA Jurado 11/22 [facility] [place] [place] Out[facility] Encounter [id number] CARLOS RIGGINS 11/22 [facility] [place] [place] Out[facility] Encounter [id number] 11/22 [facility] [place] [facility] [place] Out[facility] Encounter [id number] ANASTACIA RAMIREZ 12/04 [facility] [place] Out[facility] Encounter [id number] 12/05 [facility] [place] [place] Out[facility] Encounter [id number] 12/06 [facility] [place] [place] Out[facility] Encounter [id number] 12/07 [facility] [place] Out[facility] Encounter [id number] 12/07 [facility] [place] Out[facility] Encounter [id number] 12/07 [facility] [place] [place] [facility] HARSHILQUINTIN D ([facility]) OFFICE O/P EST MOD 30 MIN [id number] Diagnos is: ICD-10- CM M54.50 Low back pain, unspeci fied JORDAN MARIE M 12/08 [place] [facility] [place] Encounter [id number] 12/11 [facility] [place] Encounter [id number] 12/15 [facility] [place] [place] Out[facility] Encounter [id number] 12/20 [facility] [place] [place] Encounter [id number] 12/22 [facility] [place] [facility] [place] Out[facility] Encounter [id number] 12/22 [facility] [place] Out[facility] Encounter [id number] 12/23 [facility] [place] [place] Out[facility] Encounter [id number] 12/26 [facility] [place] [facility] Outpatient Encounter [id number] 01/06 [facility] [place] Out[facility] Encounter [id number] 01/15 [facility] [place] Out[facility] Encounter [id number] 01/15 [facility] [place] Out[facility] Encounter [id number] 01/15 [facility] [place] Out[facility] Encounter [id number] 01/19 [facility] [place] Out[facility] Encounter [id number] 01/20 [facility] [place] Out[facility] Encounter [id number] 01/22 [facility] [place] Out[facility] Encounter [id number] 01/23 [facility] [place] Out[facility] Encounter [id number] 01/24 [facility] [place] Out[facility] Encounter [id number] 01/25 [facility] [place] Out[facility] Encounter [id number] 01/26 [facility] [place] [facility] OFFICE O/P EST MOD 30 MIN [id number] Diagnos is: ICD-10- CM M54.50 Low back pain, unspeci fied KETRAVISLILIUsman AUGSUSAN M 02/08 [place] [facility] MTMS BY PHARM IN FLIGHT TECHNICIAN 15 MIN [id number] Diagnos is: ICD-10- CM Z51.81 Encount er for therape utic drug level monitor nina DARRONDMITRI COLES ISTINE F 02/09 [facility]631GE) [facility] [place] [facility] Outpatient Encounter [id number] 02/19 [facility] Out[facility] Encounter [id number] 02/20 [facility] [place] [place] [facility] OFFICE O/P EST MOD 30 MIN [id number] Diagnos is: ICD-10- CM I48.91 Unspeci fied atrial fibrill atJORDAN Loredo M 02/20 [place] [facility] [facility] OFFICE O/P EST MOD 30 MIN [id number] Diagnos is: ICD-10- CM I10 Essenti al (primar y) hyperte nsJORDAN Loredo M 03/07 [place] [facility]) [facility] [place] Outpatient Encounter [id number] 03/07 [facility] [place] Encounter [id number] 04/24 [facility] [place] Out[facility] Encounter [id number] 04/25 [facility] [place] Out[facility] Encounter [id number] 04/25 [facility] [place] [place] [facility] OFFICE O/P EST LOW 20 MIN [id number] Diagnos is: ICD-10- CM L89.899 Pressur e ulcer of other site, unspeci fied stage JORDAN MARIE 05/02 [place] [facility] Out[facility] Encounter [id number]/07 [facility] [place] Out[facility] Encounter [id number] [facility] [place] QNHP OL DIG ASSMT&MGMT 5-10 [id number]. Diagnos is: ICD-10- CM Z04.89 Encount er for examina tion and observa tion for oth reasons [facility] TJ Thomas 08/20 [facility] [place] NQHP OL DIG ASSMT&MGMT 5-10 [id number] Diagnos is: ICD-10- CM Z04.89 Encount er for examina tion and observa tion for oth reasons [place] TJ Thomas 09/24 [facility] [place] NQHP OL DIG ASSMT&MGMT 5-10 [id number] Diagnos is: ICD-10- CM Z04.89 Encount er for examina tion and observa tion for oth reasons CU[place] TJ Thomas 10/25 [facility] HEARING AID REPAIR/MOD IFYING [id number] Diagnos is: ICD-10- CM Z46.1 Encount er for fitting and adjustm ent of hearing aid Aline TREADWELL 10/30 [facility] Outpatient Encounter [id number] 11/30 [place] [facility] [place] [place] [facility] [place] [facility] Outpatient Encounter [id number] 12/05 [place] [facility] Social History Combined list of available smoking, tobacco, and other social history from Department of Defense and Veterans Affairs facilities. Social History Type Response Date Comment Source Tobacco smoking status [facility]2023 [facility] of [facility]2023 [facility] tobacco use [facility]2023 [facility] of tobacco use [facility] 08/04/2021 [facility] History of tobacco use [facility] 03/21/2020 [facility] History of tobacco use [facility] 15 YRS OR MORE 04/24/2019 [facility] History of tobacco use [facility] 15 YRS OR MORE 06/15/2018 [facility] History of tobacco use QUIT TOBACCO USE > 7 YEARS AGO 10/10/2017 quit 30 years ago [facility] History of tobacco use QUIT TOBACCO USE > 7 YEARS AGO 02/14/2017 [facility] History of tobacco use QUIT TOBACCO USE > 7 YEARS AGO 11/25/2015 quit > 30 yrs ago [facility] History of tobacco use HISTORY OF SMOKING 02/28/2013 quit 40 years ago [facility] History of tobacco use HISTORY OF SMOKING 03/22/2012 quit 40 years ago [facility] History of tobacco use HISTORY OF SMOKING 03/24/2011 PT QUIT 43 YRS AGO [facility] History of tobacco use HISTORY OF SMOKING 04/07/2010 quit 1970 [facility] History of tobacco use HISTORY OF SMOKING 02/10/2009 PT QUIT 41 YRS AGO. [facility] History of tobacco use LIFETIME NON-SMOKER 01/18/2008 [facility] History of tobacco use LIFETIME NON-SMOKER 12/05/2006 [facility] of [facility] use LIFETIME NON-SMOKER 12/06/2005 [facility] History of tobacco use HISTORY OF SMOKING 12/16/2004 [facility] History of tobacco use HISTORY OF SMOKING 12/16/2003 stopped 30yrs aso [facility] History of tobacco use LIFETIME NON-SMOKER 11/23/2002 [facility] History of tobacco use HISTORY OF SMOKING 03/27/2001 [facility] Plan of Care List of future care activities from [facility] facilities. Additional future care activities may be listed in the Assessment and Plan section. Date/Time Care Activity Care Activity Detail Facili ty 04/16/2025 AMBULATORY - REHAB MEDICINE AMBULATORY - REHAB MEDICINE [facility] Advance Directives List of completed, amended, or rescinded Advance Directives on record at [facility] facilities. An actual copy of the Directive is not included. Date Advance Directive Provider Source 03/16/2023 ADVANCE DIRECTIVE ADILIA ROBERTS [facility]
[2024-12-11 23:08] LABS: CDiff Gene PCR NEGATIVE (Negative)
== END 2024-12-11 21:47 | disposition home or self-care (01) ==
LOC: HO.HSH3W 21:46
PROVIDERS: PCP Nurse Practitioner; Visit Provider Internal Medicine Medical Oncology
DX: R19.7 Diarrhea, unspecified (principal)
CPT/HCPCS: 87493

== ENCOUNTER 2024-12-18 15:07 | Outpatient (AMB) | payer MEDICARE, SELFPAY ==
[2024-12-18 15:11] VITALS: BP 110/62; PULSE 49
--- NOTE | 2024-12-18 15:11 | A.OFFVIS_ITS ---
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 [employer] Manager Required: No Accompanied by: Other Relationship Allergies No Known Allergies Allergy (Verified 12/02/24 23:55) Medication List - Last Reconciled 12/18/24 by Rashawn Sesay NP acetaminophen 650 mg PO Q4H PRN alendronate 70 mg PO QWEEK apixaban (Eliquis) 2.5 mg PO BID cholecalciferol (vitamin D3) (Vitamin D3) 25 mcg PO DAILY docusate sodium 200 mg PO BID lactulose 10 grams PO DAILY PRN lisinopril 20 mg PO DAILY metoprolol succinate ER 25 mg PO DAILY ondansetron HCl 4 mg PO Q6H PRN pseudoephedrine-guaifenesin 30-100 mg/5 mL 10 mL PO Q4-6H PRN simvastatin 20 mg PO DAILY HPI Comments Details: This is an 88-year-old male patient presenting for a hospital discharge follow- up. Patient with a history of chronic AFib, hypertension, hyperlipidemia, and resides of the [facility]. He is accompanied by the nursing staff. The patient was recently admitted to the hospital for acute respiratory failure secondary to pneumonia and was treated with IV antibiotics. During his hospitalization patient was confused and was unable to eat requiring IV fluids which led to fluid overload and heart failure with an EF between 35-40% which was subsequently treated with IV Lasix. During this time patient also required supplemental oxygen but was successfully weaned off and was discharged home on oral antibiotics only. Today, the patient reports feeling well overall particularly after completing his course of antibiotics. He denies any cardiac symptoms including exertional chest pain, shortness of breath, palpitations, dizziness, fatigue, orthopnea, PND, leg edema, presyncope, or syncope. The nursing staff reports that patient is returning to his baseline and is actively participating in daily physical therapy. Patient and nursing staff both were inquiring about speech therapy at his facility if they can re-evaluate him as patient was discharged on the thick liquids and pureed diet. Patient otherwise is compliant with all his medications. 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 Alcohol intake: current Patient Tobacco Use Status: Former Tobacco user Second Hand Smoke Exposure: No service: Yes Review of Systems Const Denies chills, Denies daytime sleepiness, Denies fatigue, Denies fever(s), Denies poor appetite, Denies snoring, Denies stops breathing during sleep, Denies weakness, Denies weight gain and Denies weight loss Eyes Denies loss of vision ENT Denies dizziness and Denies hearing loss Card Denies chest pain, Denies irregular heart rhythm, Denies claudication, Denies leg edema, Denies lightheadedness, Denies palpitations, Denies dyspnea on exertion and Denies orthopnea Resp Denies cough, Denies excessive phlegm production, Denies dyspnea on exertion, Denies snoring and Denies wheezing GI Denies abdominal pain, Denies hematochezia, Denies change in bowel habits, Denies nausea and Denies vomiting Denies dysuria and Denies urinary frequency Musc Denies arthralgias, Denies muscle weakness, Denies numbness and Denies other Skin/Breast Denies nail changes and Denies rash Neuro Denies Abnormal speech present, Denies dizziness, Denies loss of vision, Denies memory loss, Denies numbness and Denies weakness Psych Denies depression and Denies memory loss Endo Denies fatigue and Denies palpitations Roby/Lymph Denies easy bruising Aller/Immun Denies wheezing Physical Exam Vital Signs: Last Vital Signs Pulse 49 L 12/18/24 15:11 BP 110/62 12/18/24 15:11 Const General: cooperative, healthy appearing, comfortable and no acute distress Orientation/consciousness: patient oriented x3 HEENT Head: Yes normal to inspection Neck Neck: Yes normal visual inspection, Yes trachea midline and Yes supple Chest Chest palpation & inspection: normal inspection of the chest Resp Effort & Inspection: normal respiratory effort Auscultation: clear to auscultation bilaterally, no crackles, no rales, no rhonchi and no wheezes Cardio Jugular venous distension: no JVD Palpation: normal PMI Rate: bradycardic Rhythm: abnormal rhythm Heart sounds: S1 normal heart sound present, S2 normal heart sound present, no click, no gallops, no murmurs and no rubs Peripheral pulses: Peripheral pulses 2+ throughout GI Inspection: Yes normal to inspection Palpation (GI): Soft to palpation Auscultation: normal bowel sounds Skin General skin exam: no rashes or lesions noted Neuro General: patient oriented x3 Speech: No Abnormal speech present Extrem General: Yes normal to inspection, No no pedal edema and No calf tenderness Psych Appearance: grossly normal Mental Status: mental status grossly normal Speech and movement: Normal speech and movement present Assessment & Plan Assessment & Plan (1) New onset of congestive heart failure: Code(s): I50.9 - Heart failure, unspecified Category: Medical Plan: 12/04/2024-echo study showed moderately reduced LV ejection fraction between 35- 40%, moderate biatrial enlargement, mild mitral and aortic regurgitation, and significantly elevated right atrial pressure. The patient's low ejection fraction could be possibly secondary to fluid overload during his recent hospitalization. Patient's blood pressure is currently on the low-normal range and he is clinically euvolemic today. The patient denies any symptoms of chest pain, shortness of breath, or leg edema. We reviewed in detail the signs and symptoms of heart failure. We will repeat an echocardiogram in 3 months and further treatment will be based on the findings then. The patient has been advised to adhere to a low-salt diet and maintain fluid restriction of 1.5-2 L daily. (2) Chronic a-fib: Code(s): I48.20 - Chronic atrial fibrillation, unspecified Category: Medical Plan: Chronic history of AFib. Continue Eliquis for full anticoagulation therapy. No reported signs of bleeding or falls. Continue metoprolol therapy for rate control approach. (3) Hypertension: Code(s): I10 - Essential (primary) hypertension Category: Medical Plan: Blood pressure on the low-normal. Continue current regimen. Ideally, blood pressure goal less than 130/80. (4) Hyperlipidemia: Code(s): E78.5 - Hyperlipidemia, unspecified Category: Medical Plan: Continue statin therapy. (5) Hospital discharge follow-up: Code(s): Z09 - Encounter for follow-up examination after completed treatment for conditions other than malignant neoplasm Plan: As above. Advised heart healthy diet, regular exercise as tolerated, at med compliance. We will follow-up in 4 months' time. In the interim, patient will call the office with any concerns or change in symptoms. This note was generated using voice recognition software. While every effort has been made to ensure accuracy and proper registered medical transcriptionist, there may be occasional errors that could affect the content or meaning of the described symptoms. Orders: Orders CA echo transthoracic complete 3 Months I50.9 - Heart failure, unspecified Coding Level of Care Code New Pt Level 4 (70544) Complex EM visit Add On G2211 Diagnoses New onset of congestive heart failure I50.9 Chronic a-fib I48.20 Hypertension I10 Hyperlipidemia E78.5 Hospital discharge follow-up Z09 Time Spent (min) 34 Comment Time spent in reviewing the chart, test results, assessment, counseling and documentation.
--- OUTSIDE RECORDS SUMMARY | 2024-12-18 18:10 | XMS_ITS | Continuity of Care Document ---
Author Name [facility] Organization [facility] Care Team Providers Care Calender Wind Up Helper Name Role Phone [facility] Unavailable Unavailable Problems Combined list of problems from Department of Defense and [facility] Affairs facilities. It does not include entries [...] By: JULIO LAGUNA Comment: TDAP Vaccine 02/28/13 [facility] AF - Atrial fibrillation Active Condition [place] [facility]) Atrial fibrillation and flutter Active Condition [facility] Benign essential hypertension Active Condition [place] ([facility]) Benign essential hypertension (SNOMED CT 5819928) Active Condition [facility] Cancer, prostate, primary Active Condition [facility] History of appendicectomy Active Condition [place] [facility]) History of colonoscopy Active Condition Dec 22, 2020 Entered By: KIT CAMARILLO Comment: 11/2011 diverticulosisApr 2020 Entered By: KIT CAMARILLO Comment: due 11/2021 [facility] History of knee surgery Active Condition [place] [facility]) History of vertebral fracture Active Condition [place] [facility] HLD - Hyperlipidaemia Active Condition [place] [facility] ([facility]) Hyperlipidemia (SNOMED CT 89823395) Active Condition [facility] Long-term current use of anticoagulant Active Condition [facility] Prostate cancer (SNOMED CT 133508248) Active Condition [facility] Prostate specific antigen abnormal Active Condition Mar 13 4 Entered By: KIT CAMARILLO Comment: patient refuses urology evaluationJul 2013 Entered By: KIT CAMARILLO Comment: psa 4.28- 05/2013 [facility] Hypertension Inactive Condition 12/28/2007 [facility] Diagnosis: ICD-10-CM Z46.1 Encounter for fitting and adjustment of hearing aid Active Diagnosis [facility] Diagnosis: ICD-10-CM Z04.89 Encounter for examination and observation for oth reasons Active Diagnosis [facility] Diagnosis: ICD-10-CM L89.899 Pressure ulcer of other site, unspecified stage Active Diagnosis [place] ([facility]) Diagnosis: ICD-10-CM I10 Essential (primary) hypertension Active Diagnosis [place] ([facility]) Diagnosis: ICD-10-CM I48.91 Unspecified atrial fibrillation Active Diagnosis [place] ([facility]) Diagnosis: ICD-10-CM Z51.81 Encounter for therapeutic drug level monitoring Active Diagnosis [facility] ([facility]) Diagnosis: ICD-10-CM M54.50 Low back pain, unspecified Active Diagnosis [place] ([facility]) Diagnosis: ICD-10-CM Z79.01 prison (current) use of anticoagulants Active Diagnosis [facility] Medications Combined list of outpatient medications from Department of Defense and [facility] Affairs facilities.Medications provided include 1) outpatient medications from the last 15 months, and 2) patient-reported medications. Medication Details Route Status Patient Instructions Prescription Expires Prescription Number Last Dispense Date Ordering Provider Order Date Order Qty Source APIXABAN 5MG TAB TAKE ONE TABLET BY MOUTH EVERY 12 HOURS ORAL DISCONT INUED BY PROVIDE R 11/21/2024 [id number] LILI MARIE LISA M 2023 180 [place] [facility] APIXABAN 5MG TAB TAKE ONE TABLET BY MOUTH EVERY 12 HOURS ORAL ACTIVE LILI MARIEUGHN M 2024 [place] [facility]) CHOLECALCIF KRZYSZTOF 25MCG (1,000UNIT) TAB TAKE ONE TABLET BY MOUTH EVERY DAY ORAL ACTIVE Scarlet CAMARILLO 2011 [facility] DOCUSATE NA 100MG CAP TAKE ONE CAPSULE BY MOUTH TWICE DAILY NEEDED FOR CONSTIPA TION TO SOFTEN STOOL ORAL ACTIVE 02/09/2025 [id number] 4 LILI MARIE 2023 200 [place] [facility] DOCUSATE NA 100MG CAP TAKE TWO CAPSULES BY MOUTH TWICE A DAY FOR CONSTIPA TION ORAL 07/11/2024 [id number] MIRIAM OSPINA 2022 300 [facility] LISINOPRIL 20MG TAB TAKE ONE TABLET BY MOUTH EVERY DAY FOR BLOOD PRESSURE ORAL 05/11/2024 [id number] MIRIAM OSPINA 2022 90 [facility] LISINOPRIL 20MG TAB TAKE ONE TABLET BY MOUTH ONCE DAILY TO CONTROL BLOOD PRESSURE ORAL 11/21/2024 [id number] 4 LILI MARIE 2023 90 [place] [facility] METOPROLOL SUCCINATE 25MG TAB,SA TAKE ONE TABLET BY MOUTH ONCE DAILY FOR BLOOD PRESSURE /HEART ORAL ACTIVE 02/09/2025 [id number] 4 LILI MARIE 2023 90 [place] [facility] METOPROLOL SUCCINATE 25MG TAB,SA TAKE ONE TABLET BY MOUTH EVERY DAY FOR BLOOD PRESSURE /HEART ORAL 02/01/2024 [id number] 4 Scarlet CAMARILLO 2022 90 [facility] MULTIVIT/OP HTH AREDS2/LUTE IN/ZEAXANTH IN CAP/TAB TAKE 1 CAPSULE BY MOUTH TWICE DAILY FOR VITAMIN SUPPLEME NTATION IN THE MORNING AND EVENING, WITH FOOD ORAL ACTIVE 02/09/2025 [id number] 4 LILI MARIE 2023 120 [place] [facility] SIMVASTATIN 40MG TAB TAKE ONE-HALF TABLET BY MOUTH AT BEDTIME TO LOWER CHOLESTE ROL ORAL 02/01/2024 [id number] 4 Scarlet CAMARILLO 2022 45 [facility] SIMVASTATIN 80MG TAB TAKE ONE-HALF TABLET BY MOUTH ONCE DAILY FOR CHOLESTE ROL ORAL 11/21/2024 [id number] 4 LILI MARIE 2023 45 [place] [facility] SODIUM FLUORIDE 1.1% GEL,DENT USE A PEA SIZED AMOUNT FOR DENTAL USE EVERY DAY FOR PREVENTI ON OF TOOTH PLAQUE DENTAL 05/18/2024 [id number] 4 CARI, RIDEVI 2022 56 [facility] SODIUM FLUORIDE 1.1% TOOTHPASTE BRUSH SMALL AMOUNT TO TEETH ONCE DAILY FOR TOOTH DECAY PREVENTI ON DENTAL ACTIVE 02/09/2025 [id number] 5 LILI MARIE 2023 51 [place] [facility] Allergies, Adverse Reactions, Alerts Combined list of allergies from Department of Defense and Veterans Affairs facilities. It does not include entries that were removed or entered in error. Substance Category Reaction Severity Reaction type Status Date Reported Comments Source POLLEN Propensity to adverse reaction (finding) ITCHING,WA TERING EYES active 12/16/2003 [facility] Immunizations Combined list of available immunizations from the Department of Defense and Veterans Affairs facilities. Immunization Series Date Given Administered By Site Reaction Lot Number CVX Code Drug [employer] Emotionally Disturbed Status Comments Source COVID-19 (MODERNA), MRNA, LNP-S, PF, 50 MCG/0.5 ML (AGES 12+ YEARS) 2022 312 complet ed [facility] [place] [facility] INFLUENZA, HIGH-DOSE, QUADRIVALENT 2022 197 complet ed [facility] [place] [facility] COVID-19 (PFIZER), MRNA, LNP-S, BIVALENT, PF, 30 MCG/0.3 ML DOSE 2022 300 complet ed [facility] [place] [facility] [facility] COVID-19 (PFIZER), MRNA, LNP-S, BIVALENT, PF, 30 MCG/0.3 ML DOSE 2021 300 complet ed [facility] [place] [facility] INFLUENZA, UNSPECIFIED FORMULATION 11/21/ 2022 88 complet ed received flu vaccine via Outside pcp at [facility] TD(ADULT) UNSPECIFIED FORMULATION 2021 139 complet ed received flu vaccine via Outside pcp at [facility]/ ic documenta tion [facility] INFLUENZA, UNSPECIFIED FORMULATION 2020 88 complet ed [facility] COVID-19 (PFIZER), MRNA, LNP-S, PF, 30 MCG/0.3 ML DOSE 2 2020 208 complet ed PFR; [id number]; 1 [facility] COVID-19 (PFIZER), MRNA, LNP-S, PF, 30 MCG/0.3 ML DOSE 1 2020 208 complet ed PFR; [id number]; 1 [facility] INFLUENZA, INJECTABLE, QUADRIVALENT, PRESERVATIVE FREE 2019 150 complet ed [facility] ZOSTER RECOMBINANT 2 2019 187 complet ed [facility] INFLUENZA, TRIVALENT, ADJUVANTED 2018 168 complet ed Site: [facility] ZOSTER RECOMBINANT 1 2018 187 complet ed [facility] INFLUENZA, SEASONAL, INJECTABLE 2017 141 complet ed Site: Left [facility] PNEUMOCOCCAL CONJUGATE PCV 13 2017 133 complet ed [facility] INFLUENZA, SEASONAL, INJECTABLE 2016 141 complet ed Site: Right [facility] FLU,3 YRS (HISTORICAL) 2015 88 complet ed Site: Left [facility] FLU,3 YRS (HISTORICAL) 2014 88 complet ed Site: Left [facility] FLU,3 YRS (HISTORICAL) 2013 88 complet ed Site: Left [facility] FLU,3 YRS (HISTORICAL) 2012 88 complet ed Site: Left [facility] DTAP, UNSPECIFIED FORMULATION 2012 107 complet ed Site: Left [facility] TDAP 2012 115 complet ed [facility] [place] VARICELLA 2011 21 complet ed [facility] FLU,3 YRS (HISTORICAL) 2011 88 complet ed Site: Left Deltoid [facility] PNEUMOCOCCAL POLYSACCHARID E PPV23 2011 33 complet ed [facility] [place] FLU,3 YRS (HISTORICAL) 2011 88 complet ed Site: Left Deltoid [facility] TD(ADULT) UNSPECIFIED FORMULATION 2010 139 complet ed Site: Left Deltoid [facility] FLU,3 YRS (HISTORICAL) 2009 88 complet ed Site: Left Deltoid [facility] NOVEL INFLUENZA-H1N 1-09, ALL FORMULATIONS 2009 128 complet ed [employer] [facility] FLU,3 YRS (HISTORICAL) 2008 88 complet ed Site: Right Deltoid [facility] FLU,3 YRS (HISTORICAL) 2007 88 complet ed Site: Left Deltoid [facility] FLU,3 YRS (HISTORICAL) 2006 88 complet ed Site: Left Deltoid [facility] FLU,3 YRS (HISTORICAL) 2005 MATT JARVIS 88 complet ed [facility] FLU,3 YRS (HISTORICAL) 2004 FLAKO FUNEZ AE 88 comple t ed [facility] FLU,3 YRS (HISTORICAL) 2003 SUMEET LARKIN 88 complet ed [facility] PNEUMOCOCCAL, UNSPECIFIED FORMULATION 2003 109 complet ed Site: Left Deltoid [facility] PNEUMOCOCCAL POLYSACCHARID E PPV23 2003 33 complet ed [facility] [place] FLU,3 YRS (HISTORICAL) 2000 88 complet ed [facility] FLU,3 YRS (HISTORICAL) 1998 88 complet ed [facility] Results Combined list of recent chemistry, [...] February 09, 2024 09:34 AM Reporting Lab: [facility] [place] [facility] [address] [facility] [address] Performing Lab: [facility] [place] [address] [address] [facility] [place] [facility] LIVER FUNCTION ALBUMIN [MASS/VOLU ME] IN SERUM OR PLASMA 3.7 g/dL 3.5 - 5.0 02/08 Specimen Type: SERUM No comment entered. Ordering Provider: SKYLER MARIE Report Released Date/Time: February 09, 2024 09:34 AM Reporting Lab: [facility] [place] [address] [address] Performing Lab: [facility] [place] [address] [address] [facility] [place] [facility] LIVER FUNCTION ALKALINE PHOSPHATAS E [ENZYMATIC ACTIVITY/V OLUME] IN SERUM OR PLASMA 95 U/L 40 - 150 02/08 Specimen Type: SERUM No comment entered. Ordering Provider: SKYLER MARIE Report Released Date/Time: February 09, 2024 09:34 AM Reporting Lab: [facility] [place] [facility] [address] [facility] [address] Performing Lab: [facility] [place] [address] [address] [facility] [place] [facility] LIVER FUNCTION ASPARTATE AMINOTRANS FERASE [ENZYMATIC ACTIVITY/V OLUME] IN SERUM OR PLASMA 19 U/L 5 - 34 02/08 Specimen Type: SERUM No comment entered. Ordering Provider: SKYLER MARIE Report Released Date/Time: February 09, 2024 09:34 AM Reporting Lab: [facility] [place] [facility] [address] [facility] [address] Performing Lab: [facility] [place] [facility] [address] [facility] [address] [facility] [place] [facility] LIVER FUNCTION ALANINE AMINOTRANS FERASE [ENZYMATIC ACTIVITY/V OLUME] IN SERUM OR PLASMA 17 U/L 02/08 Specimen Type: SERUM No comment entered. Ordering Provider: SKYLER MARIE Report Released Date/Time: February 09, 2024 09:34 AM Reporting Lab: [facility] [place] [facility] [address] [facility] [address] Performing Lab: [facility] [place] [facility] [address] [facility] [address] [facility] LIVER FUNCTION BILIRUBIN. TOTAL [MASS/VOLU ME] IN SERUM OR PLASMA 0.6 mg/dL 0.2 - 1.2 02/08 Specimen Type: SERUM No comment entered. Ordering Provider: SKYLER MARIE Report Released Date/Time: February 09, 2024 09:34 AM Reporting Lab: [facility] [place] [facility] [address] [facility] [address] Performing Lab: [facility] [address] [facility] [address] [facility] CBC LEUKOCYTES [#/VOLUME] IN BLOOD BY AUTOMATED COUNT 7.62 10*3/uL 4.50 - 11.00 02/08 Specimen Type: BLOOD No comment entered. Ordering Provider: SKYLER MARIE Report Released Date/Time: February 09, 2024 09:34 AM Reporting Lab: [facility] [place] [facility] [address] [facility] [address] Performing Lab: [facility] [place] [facility] [address] [facility] [address] [facility] CBC ERYTHROCYT ES [#/VOLUME] IN BLOOD BY AUTOMATED COUNT 4.34 10*6/uL 4.23 - 5.66 02/08 Specimen Type: BLOOD No comment entered. Ordering Provider: SKYLER MARIE Report Released Date/Time: February 09, 2024 09:34 AM Reporting Lab: [facility] [place] [facility] [address] [facility] [address] Performing Lab: [facility] [place] [facility] [address] [facility] [address] [facility] [place] [facility] CBC HEMOGLOBIN [MASS/VOLU ME] IN BLOOD 13.6 g/dL 12.8 - 17 02/08 Specimen Type: BLOOD No comment entered. Ordering Provider: SKYLER MARIE Report Released Date/Time: February 09, 2024 09:34 AM Reporting Lab: [facility] [place] [facility] [address] [facility] [address] Performing Lab: [facility] [place] [facility] [address] [facility] [address] [facility] [place] [facility] CBC HEMATOCRIT [VOLUME FRACTION] OF BLOOD BY AUTOMATED COUNT 40.2 39.2 - 50.4 02/08 Specimen Type: BLOOD No comment entered. Ordering Provider: SKYLER MARIE Report Released Date/Time: February 09, 2024 09:34 AM Reporting Lab: [facility] [place] [facility] [address] [facility] [address] Performing Lab: [facility] [place] [facility] [address] [facility] [address] [facility] [place] [facility] CBC MCV [ENTITIC VOLUME] BY AUTOMATED COUNT 92.6 fL 82 - 99 02/08 Specimen Type: BLOOD No comment entered. Ordering Provider: SKYLER MARIE Report Released Date/Time: February 09, 2024 09:34 AM Reporting Lab: [facility] [place] [facility] [address] [facility] [address] Performing Lab: [facility] [place] [facility] [address] [facility] [address] [facility] [place] [facility] CBC MCHC [MASS/VOLU ME] BY AUTOMATED COUNT 33.8 g/dL 30.8 - 35.1 02/08 Specimen Type: BLOOD No comment entered. Ordering Provider: SKYLER MARIE Report Released Date/Time: February 09, 2024 09:34 AM Reporting Lab: [facility] [place] [facility] [address] [facility] [address] Performing Lab: [facility] [place] [facility] [address] [facility] [address] [facility] [place] [facility] CBC PLATELETS [#/VOLUME] IN BLOOD BY AUTOMATED COUNT 267 10*3/uL 140 - 360 02/08 Specimen Type: BLOOD No comment entered. Ordering Provider: SKYLER MARIE Report Released Date/Time: February 09, 2024 09:34 AM Reporting Lab: [facility] [place] [facility] [address] [facility] [address] Performing Lab: [facility] [place] [facility] [address] [facility] [address] [facility] [place] [facility] CBC ERYTHROCYT E DISTRIBUTI ON WIDTH [RATIO] BY AUTOMATED COUNT 13.0 12.0 - 16.0 02/08 Specimen Type: BLOOD No comment entered. Ordering Provider: SKYLER MARIE Report Released Date/Time: February 09, 2024 09:34 AM Reporting Lab: [facility] [place] [facility] [address] [facility] [address] Performing Lab: [facility] [place] [facility] [address] [facility] [address] [facility] [place] [facility] CBC MCH [ENTITIC MASS] BY AUTOMATED COUNT 31.3 pg 26.2 - 32.6 02/08 Specimen Type: BLOOD No comment entered. Ordering Provider: SKYLER MARIE Report Released Date/Time: February 09, 2024 09:34 AM Reporting Lab: [facility] [place] [facility] [address] [facility] [address] Performing Lab: [facility] [place] [address] [address] [facility] [place] [facility] PT & INR (COUMADI N) INR IN PLATELET POOR PLASMA BY COAGULATIO N ASSAY 1.1 02/08 Specimen Type: PLASMA No comment entered. Ordering Provider: SKYLER MARIE Report Released Date/Time: February 09, 2024 09:34 AM Reporting Lab: [facility] [place] [facility] [address] [facility] [address] Performing Lab: [facility] [place] [facility] [address] [facility] [address] [facility] [place] [facility] PT & INR (COUMADI N) PROTHROMBI N TIME (PT) 12.7 s 10.0 - 13.1 02/08 Specimen Type: PLASMA No comment entered. Ordering Provider: SKYLER MARIE Report Released Date/Time: February 09, 2024 09:34 AM Reporting Lab: [facility] [place] [facility] [address] [facility] [address] Performing Lab: [facility] [place] [place] [address] [address] [facility] [place] [facility] LIPID PANEL, NON FASTING CHOLESTERO L [MASS/VOLU ME] IN SERUM OR PLASMA 116 mg/dL 02/08 Specimen Type: SERUM No comment entered. Ordering Provider: SKYLER MARIE Report Released Date/Time: February 09, 2024 09:35 AM Reporting Lab: [facility] [place] [facility] [address] [facility] [address] Performing Lab: [facility] [place] [facility] [address] [facility] [address] [facility] [place] [facility] LIPID PANEL, NON FASTING TRIGLYCERI DE [MASS/VOLU ME] IN SERUM OR PLASMA 133 mg/dL 0 - 150 02/08 Specimen Type: SERUM No comment entered. Ordering Provider: SKYLER MARIE Report Released Date/Time: February 09, 2024 09:35 AM Reporting Lab: [facility] [place] [facility] [address] [facility] [address] Performing Lab: [facility] [place] [facility] [address] [facility] [address] [facility] [place] [facility] LIPID PANEL, NON FASTING CHOLESTERO L IN LDL [MASS/VOLU ME] IN SERUM OR PLASMA BY ROSA Fuller 51 mg/dL 0 - 129 02/08 Specimen Type: SERUM No comment entered. Ordering Provider: SKYLER MARIE Report Released Date/Time: February 09, 2024 09:35 AM Reporting Lab: [facility] [address] Performing Lab: [facility] [address] [facility] [address] [facility] LIPID PANEL, NON FASTING CHOLESTERO L.TOTAL/CH OLESTEROL IN HDL [MASS RATIO] IN SERUM OR PLASMA 3.1 02/08 Specimen Type: SERUM No comment entered. Ordering Provider: SKYLER MARIE Report Released Date/Time: February 09, 2024 09:35 AM Reporting Lab: [facility] [address] [address] Performing Lab: [facility] [address] [address] [facility] LIPID PANEL, NON FASTING CHOLESTERO L IN HDL [MASS/VOLU ME] IN SERUM OR PLASMA 38 mg/dL 40 - 60 02/08 L Specimen Type: SERUM No comment entered. Ordering Provider: SKYLER MARIE Report Released Date/Time: February 09, 2024 09:35 AM Reporting Lab: [facility] [place] [address] [address] Performing Lab: [facility] [address] [address] [facility] BASIC METABOLI C PANEL (non-fas ting) UREA NITROGEN [MASS/VOLU ME] IN SERUM OR PLASMA 12 mg/dL 7 - 25 02/08 Specimen Type: SERUM No comment entered. Ordering Provider: SKYLER MARIE Report Released Date/Time: February 09, 2024 09:35 AM Reporting Lab: [facility] [address] [address] Performing Lab: [facility] [address] [facility] [address] [facility] BASIC METABOLI C PANEL (non-fas ting) GLUCOSE [MASS/VOLU ME] IN SERUM OR PLASMA 107 mg/dL 65 - 100 02/08 H Specimen Type: SERUM No comment entered. Ordering Provider: SKYLER MARIE Report Released Date/Time: February 09, 2024 09:35 AM Reporting Lab: [facility]ITALTR[facility] [address] [address] Performing Lab: [facility] [address] [address] [facility] BASIC METABOLI C PANEL (non-fas ting) SODIUM [MOLES/VOL UME] IN SERUM OR PLASMA 135 mmol/L 135 - 145 02/08 Specimen Type: SERUM No comment entered. Ordering Provider: SKYLER MARIE Report Released Date/Time: February 09, 2024 09:35 AM Reporting Lab: [facility] [address] [address] Performing Lab: [facility] [address] [address] [facility] BASIC METABOLI C PANEL (non-fas ting) POTASSIUM [MOLES/VOL UME] IN SERUM OR PLASMA 4.3 mmol/L 3.5 - 5.0 02/08 Specimen Type: SERUM No comment entered. Ordering Provider: SKYLER MARIE Report Released Date/Time: February 09, 2024 09:35 AM Reporting Lab: [facility] [address] Performing Lab: [facility] [address] [address] [facility] BASIC METABOLI C PANEL (non-fas ting) CHLORIDE [MOLES/VOL UME] IN SERUM OR PLASMA 103 mmol/L 100 - 110 02/08 Specimen Type: SERUM No comment entered. Ordering Provider: SKYLER MARIE Report Released Date/Time: February 09, 2024 09:35 AM Reporting Lab: [facility] [address] [address] Performing Lab: [facility] [address] [address] [facility] BASIC METABOLI C PANEL (non-fas ting) CARBON DIOXIDE, TOTAL [MOLES/VOL UME] IN SERUM OR PLASMA 25 meq/L 20 - 30 02/08 Specimen Type: SERUM No comment entered. Ordering Provider: SKYLER MARIE Report Released Date/Time: February 09, 2024 09:35 AM Reporting Lab: [address] [address] Performing Lab: [address] [address] [facility] PANEL (non-fas ting) CREATININE [MASS/VOLU ME] IN SERUM OR PLASMA 0.67 mg/dL 0.50 - 1.40 02/08 Specimen Type: SERUM No comment entered. Ordering Provider: SKYLER MARIE Report Released Date/Time: February 09, 2024 09:35 AM Reporting Lab: [address] [address] Performing Lab: [facility] [address] [address] [facility] PANEL (non-fas ting) GLOMERULAR FILTRATION RATE/1.73 SQ M.PREDICTE D [VOLUME RATE/AREA] IN SERUM, PLASMA OR BLOOD BY CREATININE -BASED FORMULA (CKD-EPI 2020) >90mL/mi n 60 02/08 Specimen Type: SERUM No comment entered. Ordering Provider: SKYLER MARIE Report Released Date/Time: February 09, 2024 09:35 AM Reporting Lab: [facility] [place] [facility] [address] [facility] [address] Performing Lab: [facility] [address] [facility] [address] [facility] URINALYS IS COLOR OF URINE Light-Or iliana 11/20 Specimen Type: URINE Comment: If Glucose = >500 and Ketones are positive, please alert the Physician. Ordering Provider: SKYLER MARIE Report Released Date/Time: Nov 14, 2023 04:05 PM Reporting Lab: [facility] [address] [facility] [address] Performing Lab: [facility] [address] [place] [facility]) URINALYS IS APPEARANCE OF URINE Ex.Turbi d 11/20 Specimen Type: URINE Comment: If Glucose = >500 and Ketones are positive, please alert the Physician. Ordering Provider: SKYLER MARIE Report Released Date/Time: Nov 14, 2023 04:05 PM Reporting Lab: [facility] [address] [address] Performing Lab: [facility] [address] [place] [facility] URINALYS IS GLUCOSE [MASS/VOLU ME] IN URINE NEGATIVE mg/dL 11/20 Specimen Type: URINE Comment: If Glucose = >500 and Ketones are positive, please alert the Physician. Ordering Provider: SKYLER MARIE Report Released Date/Time: Nov 14, 2023 04:05 PM Reporting Lab: [facility] [address] Performing Lab: [facility] [address] [place] [facility] URINALYS IS KETONES [MASS/VOLU ME] IN URINE BY TEST STRIP NEGATIVE mg/dL 11/20 Specimen Type: URINE Comment: If Glucose = >500 and Ketones are positive, please alert the Physician. Ordering Provider: SKYLER MARIE Report Released Date/Time: Nov 14, 2023 04:05 PM Reporting Lab: [address] [address] Performing Lab: [address] [address] [place] [facility] URINALYS IS ERYTHROCYT ES [PRESENCE] IN URINE SEDIMENT BY LIGHT MICROSCOPY NEGATIVE mg/dL 11/20 Specimen Type: URINE Comment: If Glucose = >500 and Ketones are positive, please alert the Physician. Ordering Provider: SKYLER MARIE Report Released Date/Time: Nov 14, 2023 04:05 PM Reporting Lab: [address] [address] Performing Lab: [address] [address] [place] [facility] URINALYS IS PROTEIN [MASS/VOLU ME] IN URINE BY TEST STRIP NEGATIVE mg/dL 11/20 Specimen Type: URINE Comment: If Glucose = >500 and Ketones are positive, please alert the Physician. Ordering Provider: SKYLER MARIE Report Released Date/Time: Nov 14, 2023 04:05 PM Reporting Lab: [address] [address] Performing Lab: [address] [address] [place] [facility] URINALYS IS NITRITE [PRESENCE] IN URINE NEGATIVE mg/dL 11/20 Specimen Type: URINE Comment: If Glucose = >500 and Ketones are positive, please alert the Physician. Ordering Provider: SKYLER MARIE Report Released Date/Time: Nov 14, 2023 04:05 PM Reporting Lab: [address] [address] Performing Lab: [address] [address] [place] [facility] URINALYS IS BILIRUBIN. TOTAL [PRESENCE] IN URINE NEGATIVE mg/dL 11/20 Specimen Type: URINE Comment: If Glucose = >500 and Ketones are positive, please alert the Physician. Ordering Provider: SKYLER MARIE Report Released Date/Time: Nov 14, 2023 04:05 PM Reporting Lab: [address] [address] Performing Lab: [address] [address] [place] [facility] URINALYS IS SPECIFIC GRAVITY OF URINE BY REFRACTOME TRY 1.024 1.016 - 1.022 11/20 H Specimen Type: URINE Comment: If Glucose = >500 and Ketones are positive, please alert the Physician. Ordering Provider: SKYLER MARIE Report Released Date/Time: Nov 14, 2023 04:05 PM Reporting Lab: [address] [address] Performing Lab: [address] [address] [place] [facility] URINALYS IS PH OF URINE BY TEST STRIP 5.5 5.0 - 9.0 11/20 Specimen Type: URINE Comment: If Glucose = >500 and Ketones are positive, please alert the Physician. Ordering Provider: SKYLER MARIE Report Released Date/Time: Nov 14, 2023 04:05 PM Reporting Lab: [address] [address] Performing Lab: [address] [address] [place] [facility]) URINALYS IS UROBILINOG EN [MASS/VOLU ME] IN URINE BY TEST STRIP <2.0mg/d L <2.0 - 2.0 11/20 Specimen Type: URINE Comment: If Glucose = >500 and Ketones are positive, please alert the Physician. Ordering Provider: SKYLER MARIE Report Released Date/Time: Nov 14, 2023 04:05 PM Reporting Lab: [address] [address] Performing Lab: [address] [address] [place] [facility] URINALYS IS LEUKOCYTE ESTERASE [PRESENCE] IN URINE BY TEST STRIP NEGATIVE 11/20 Specimen Type: URINE Comment: If Glucose = >500 and Ketones are positive, please alert the Physician. Ordering Provider: SKYLER MARIE Report Released Date/Time: Nov 14, 2023 04:05 PM Reporting Lab: [address] [address] Performing Lab: [address] [address] [place] [facility] MICROALB UMIN CREATINI NE RATIO PANEL MICROALBUM IN/CREATIN INE [MASS RATIO] IN URINE 19.8 mg/g 0 - 29.9 11/20 Specimen Type: URINE No comment entered. Ordering Provider: SKYLER MARIE Report Released Date/Time: Nov 14, 2023 04:05 PM Reporting Lab: [address] [address] Performing Lab: [address] [address] [place] [facility] MICROALB UMIN CREATINI NE RATIO PANEL MICROALBUM IN [MASS/VOLU ME] IN URINE 1.7 mg/dL 11/20 Specimen Type: URINE No comment entered. Ordering Provider: SKYLER MARIE Report Released Date/Time: Nov 14, 2023 04:05 PM Reporting Lab: [address] [address] Performing Lab: [address] [address] [place] [facility] MICROALB UMIN CREATINI NE RATIO PANEL CREATININE [MASS/VOLU ME] IN URINE 85.93 mg/dL 11/20 Specimen Type: URINE No comment entered. Ordering Provider: SKYLER MARIE Report Released Date/Time: Nov 14, 2023 04:05 PM Reporting Lab: [address] [address] Performing Lab: [address] [address] [place] [facility]) VITAMIN D (25-OH) 25-HYDROXY VITAMIN D3 [MASS/VOLU ME] IN SERUM OR PLASMA 28 ng/mL 20 - 50 11/20 Specimen Type: SERUM No comment entered. Ordering Provider: SKYLER MARIE Report Released Date/Time: Nov 14, 2023 04:05 PM Reporting Lab: [address] [address] Performing Lab: [address] [address] [place] [facility] VITAMIN B12 COBALAMIN (VITAMIN B12) [MASS/VOLU ME] IN SERUM OR PLASMA 351 pg/mL 200 - 900 11/20 Specimen Type: SERUM No comment entered. Ordering Provider: SKYLER MARIE Report Released Date/Time: Nov 14, 2023 04:05 PM Reporting Lab: [address] [address] Performing Lab: [address] [address] [place] [facility] TSH THYROTROPI N [UNITS/VOL UME] IN SERUM OR PLASMA 4.87 u[IU]/mL 0.35 - 5.00 11/20 Specimen Type: SERUM No comment entered. Ordering Provider: SKYLER MARIE Report Released Date/Time: Nov 14, 2023 04:05 PM Reporting Lab: [address] [address] Performing Lab: [address] [address] [place] [facility] Vital Signs Combined list [...] DC Date Status Disposition Source [facility] Outpatient Encounter [id number] 06/17 [facility] Outpatient Encounter [id number] 06/22 [facility] Outpatient Encounter [id number] 07/04 [facility] Outpatient Encounter [id number] 07/11 [facility] Outpatient Encounter [id number] 07/12 [facility] Outpatient Encounter [id number] 07/12 [facility] [place] [facility] Outpatient Encounter [id number] 08/19 [place] [facility] [place] [place] [facility] [place] [facility] Outpatient Encounter [id number] 10/18 [place] [facility] [place] [place] [facility] Outpatient Encounter [id number] 10/18 [facility] Outpatient Encounter [id number] 10/25 [facility] [place] [facility] Out[facility] Encounter [id number] 10/25 [facility] [place] [facility] [place] [facility] Encounter [id number] 10/26 [facility] [place] [facility] [place] [facility] OFFICE O/P EST HI 40 MIN [id number] Diagnos is: ICD-10- CM I10 Essenti al (primar y) hyperte JORDAN Pal 11/20 [place] [facility] [place] QNHP OL DIG ASSMT&MGMT 5-10 [id number] Diagnos is: ICD-10- CM Z79.01 prison (curren t) use of anticoa ENMA Jurado 11/22 [facility] [place] [facility] [facility] [place] Out[facility] Encounter [id number] CARLOS RIGGINS 11/22 [facility] [place] [facility] [facility] [place] Encounter [id number] 11/22 [facility] [place] [facility] [facility] [place] Out[facility] Encounter [id number] ANASTACIA RAMIREZ 12/04 [facility] [place] [facility] [facility] [place] Encounter [id number] 12/05 [facility] [place] [facility] [facility] [place] Encounter [id number] 12/06 [facility] [place] [facility] [place] Encounter [id number] 12/07 [facility] [place] [facility] [facility] [place] Out[facility] Encounter [id number] 12/07 [facility] [place] [facility] [facility] [place] Out[facility] Encounter [id number] 12/07 [facility] [place] [facility] HARSHILQUINTIN D ([facility]) OFFICE O/P EST MOD 30 MIN [id number] Diagnos is: ICD-10- CM M54.50 Low back pain, unspeci fied JORDAN MARIE M 12/08 [place] [facility] [place] [facility] En[facility] [id number] 12/11 [facility] [place] [facility] [facility] [place] Encounter [id number] 12/15 [facility] [place] [facility] [facility] [place] Out[facility] Encounter [id number] 12/20 [facility] [place] [facility] [facility] [place] Encounter [id number] 12/22 [facility] [place] [facility] [facility] [place] Encounter [id number] 12/22 [facility] [place] [facility] [facility] [place] Encounter [id number] 12/23 [facility] [place] [facility] [facility] [place] Encounter [id number] 12/26 [facility] [place] [facility] Outpatient Encounter [id number] 01/06 [facility] [place] [facility] Out[facility] Encounter [id number] 01/15 [facility] [place] [facility] [facility] [place] Encounter [id number] 01/15 [facility] [place] [facility] [facility] [place] Out[facility] Encounter [id number] 01/15 [facility] [place] [facility] [facility] [place] Encounter [id number] 01/19 [facility] [place] [facility] [place] Encounter [id number] 01/20 [facility] [place] [facility] [facility] [place] Encounter [id number] 01/22 [facility] [place] [facility] [place] Encounter [id number] 01/23 [facility] [place] [facility] [place] Encounter [id number] 01/24 [facility] [place] [facility] [place] Out[facility] Encounter [id number] 01/25 [facility] [place] [facility] [place] Encounter [id number] 01/26 [facility] [place] [facility] [place] [facility] OFFICE O/P EST MOD 30 MIN [id number] Diagnos is: ICD-10- CM M54.50 Low back pain, unspeci fied KETRAVISLILIUsman AUGSUSAN M 02/08 [place] ([facility]) [facility] (631GE) MTMS BY PHARM BATTERY CONTAINER TESTER ALUMINUM 15 MIN [id number] Diagnos is: ICD-10- CM Z51.81 Encount er for therape utic drug level monitor nina DARRONDMITRI COLES ISTINE F 02/09 [facility] (631GE) [facility] [place] [facility] Outpatient Encounter [id number] 02/19 [facility] [place] Out[facility] Encounter [id number] 02/20 [facility] [place] [place] [facility] OFFICE O/P EST MOD 30 MIN [id number] Diagnos is: ICD-10- CM I48.91 Unspeci fied atrial fibrill atJORDAN Loredo M 02/20 [place] ([facility]) [place] [facility] OFFICE O/P EST MOD 30 MIN [id number] Diagnos is: ICD-10- CM I10 Essenti al (primar y) hyperte nsJORDAN Loredo M 03/07 [place] ([facility]) [facility] [place] [facility] Outpatient Encounter [id number] 03/07 [facility] [place] Encounter [id number] 04/24 [facility] [place] [facility] [facility] [place] Out[facility] Encounter [id number] 04/25 [facility] [place] [facility] [facility] [place] Out[facility] Encounter [id number] 04/25 [facility] [place] [facility] [facility] [place] [facility] OFFICE O/P EST LOW 20 MIN [id number] Diagnos is: ICD-10- CM L89.899 Pressur e ulcer of other site, unspeci fied stage JORDAN MARIE 05/02 [place] ([facility]) [facility] [place] Out[facility] Encounter [id number]/07 [facility] [place] Out[facility] Encounter [id number] [facility] [place] [place] QNHP OL DIG ASSMT&MGMT 5-10 [id number] 1. Diagnos is: ICD-10- CM Z04.89 Encount er for examina tion and observa tion for oth reasons CUBA PACHECO TJ Thomas 08/20 [facility] [place] [place] NQHP OL DIG ASSMT&MGMT 5-10 [id number] Diagnos is: ICD-10- CM Z04.89 Encount er for examina tion and observa tion for oth reasons CUBA PACHECO TJ Thomas 09/24 [facility] [place] [place] NQHP OL DIG ASSMT&MGMT 5-10 [id number] Diagnos is: ICD-10- CM Z04.89 Encount er for examina tion and observa tion for oth reasons CUBA PACHECO TJ Thomas 10/25 [facility] [place] [place] HEARING AID REPAIR/MOD IFYING [id number] Diagnos is: ICD-10- CM Z46.1 Encount er for fitting and adjustm ent of hearing aid Aline TREADWELL 10/30 [facility] [place] Outpatient Encounter [id number] 11/30 [facility] [place] [facility] [place] [facility] Outpatient Encounter [id number] 12/05 [place] [facility] [place] [place] [facility] Social History Combined list of available smoking, tobacco, and other social history from Department of Defense and Veterans Affairs facilities. Social History Type Response Date Comment Source Tobacco smoking status [facility] FORMER USER 11/21/2023 [place] [facility] of [facility]23 [place] [facility] of [facility] 01/24/2023 [facility] History of tobacco [facility] 08/04/2021 [facility] History of tobacco [facility] 03/21/2020 [facility] History of tobacco [facility] Y[facility] OR MORE 04/24/2019 [facility] History of tobacco [facility] OR MORE 06/15/2018 [facility] History of tobacco use QUIT TOBACCO USE > 7 YEARS AGO 10/10/2017 quit 30 years ago [facility] History of tobacco use QUIT TOBACCO USE > 7 YEARS AGO 02/14/2017 [facility] History of tobacco use QUIT TOBACCO USE > 7 YEARS AGO 11/25/2015 quit > 30 yrs ago [facility] History of tobacco use HISTORY OF SMOKING 02/28/2013 quit 40 years ago [facility] History of tobacco use HISTORY OF SMOKING 03/22/2012 quit 40 years ago [facility] History of tobacco use HISTORY OF SMOKING 03/24/2011 PT QUIT 43 YRS AGO [facility] History of tobacco use HISTORY OF SMOKING 04/07/2010 quit 1970 [facility] History of tobacco use HISTORY OF SMOKING 02/10/2009 PT QUIT 41 YRS AGO. [facility] History of tobacco use LIFETIME NON-SMOKER 01/18/2008 [facility] History of tobacco use LIFETIME NON-SMOKER 12/05/2006 [facility] History of tobacco use LIFETIME NON-SMOKER 12/06/2005 [facility] History of tobacco use HISTORY OF SMOKING 12/16/2004 [facility] History of tobacco use HISTORY OF SMOKING 12/16/2003 stopped 30yrs aso [facility] History of tobacco use LIFETIME NON-SMOKER 11/23/2002 [facility]WIN [facility] History of tobacco use HISTORY OF SMOKING 03/27/2001 [facility] Plan of Care List of future care activities from [facility] facilities. Additional future care activities may be listed in the Assessment and Plan section. Date/Time Care Activity Care Activity Detail Facili ty 04/16/2025 AMBULATORY - REHAB MEDICINE AMBULATORY - REHAB MEDICINE ID [facility] Advance Directives List of completed, amended, or rescinded Advance Directives on record at [facility] facilities. An actual copy of the Directive is not included. Date Advance Directive Provider Source 03/16/2023 ADVANCE DIRECTIVE ADILIA ROBERTS [facility]
--- OUTSIDE RECORDS SUMMARY | 2024-12-18 18:10 | XMS_ITS | Clinical Summary ---
Author Organization [facility] Address [address] [place] [address] [address] [place] [address] Care Team Providers Care Cotton Buyer Name Role Phone Unavailable Primary Care Provider [...] Office Visit [facility] [address] [place] [id number] Fredy Soliz DMD 10/10/2024 2:00 PM EST Office Visit [facility] [address] [place] [id number] Mita Williamson from Last 3 Months Social [...]
--- OUTSIDE RECORDS SUMMARY | 2024-12-18 18:10 | XMS_ITS | Patient Health Record ---
Author Organization [facility] Address [address] [address] Support Name Relationship Address Phone RUBY HORVATH Guarantor Unknown [phone] Allergies No Known Allergies Reason For Referral [...] Problem Status W/U Status Risk Notes Problem 59731975 Essential hypert ension (I10) Active confirmed Problem 895941415 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) Active confirmed Problem 16120575 Hypercholesterol emia (E78.00) Active confirmed Plan Of Treatment No Information Insurance Providers Payer Name Payer Address Payer Phone Subscriber Number Group Number Insured Name Patient Relationship to Insured Coverage Start Date Coverage End Date [facility] [place] Plan [address] [place] [address] [id number] RUBY HORVATH Self - patient is the insured Safety Insurance [address] [address] [place] [address] [id number] RUBY HORVATH Self - patient is the insured Medical (General) History Medical History History ICD Code atrial fibrillation, hypertension, glauc dimas
== END 2024-12-18 15:49 | disposition home or self-care (01) ==
LOC: HO.HCS 15:07
PROVIDERS: PCP Internal Medicine Medical Oncology
DX: I50.9 Heart failure, unspecified (principal); I48.20 Chronic atrial fibrillation, unspecified; I10 Essential (primary) hypertension; E78.5 Hyperlipidemia, unspecified; Z09 Encounter for follow-up examination after completed treatment for conditions other than malignant neoplasm
CPT/HCPCS: 99204; G2211

== ENCOUNTER → 2024-12-18 15:07 | Outpatient (BNVA) | payer MEDICARE, OTHER, SELFPAY | PROVIDERS: PCP Internal Medicine Medical Oncology | DX: Z09 Encounter for follow-up examination after completed treatment for conditions other than malignant neoplasm (principal); I11.0 Hypertensive heart disease with heart failure; I50.9 Heart failure, unspecified; I48.20 Chronic atrial fibrillation, unspecified; E78.5 Hyperlipidemia, unspecified | CPT/HCPCS: 99202 ==

== ENCOUNTER 2025-02-04 13:57 | Emergency (ER) | payer OTHER, SELFPAY ==
--- NOTE | ~2025-02-04 | CT_ITS ---
CLINICAL HISTORY: fall, +head strike on AC CT head without contrast Comparison: None Findings: No acute hemorrhage. No extra-axial fluid collection. No hydrocephalus, mass-effect or herniation. Brown-white differentiation is maintained. There is patchy hypoattenuation of the periventricular and deep white matter, which is most likely the sequela of severe chronic small vessel ischemic disease. No acute orbital pathology. No acute soft tissue abnormality. No fracture. The visualized paranasal sinuses are predominantly clear. The mastoid air cells are clear. Impression: No acute findings. This document has been electronically signed by: Anila Newman MD on 02/04/2025 16:11:54
--- NOTE | ~2025-02-04 | XR_ITS ---
CLINICAL HISTORY: pain Radiographs of the left shoulder, 2 views Comparison: CR - XR CHEST 1V - 12/04/24 03:24 EDT Findings: There is a fracture of the midportion of the clavicle with 4 mm of displacement. The coracoclavicular distance is normal. The acromioclavicular joint is intact. No dislocation. Narrowed acromiohumeral interval may indicate rotator cuff pathology.Mild degenerative change. Bone mineralization is decreased. Soft tissue swelling. Impression: Fracture of the clavicle. This document has been electronically signed by: Anila Newman MD on 02/04/2025 16:05:26
--- NOTE | ~2025-02-04 | CT_ITS ---
CLINICAL HISTORY: fall, +head strike on AC CT cervical spine without contrast Comparison: CT/SR - CT CHEST WO IV CON - 12/03/24 04:17 EDT Findings: Mild multilevel anterolisthesis /Retrolisthesis, degenerative. Mild levocurvature with the apex T2. No fracture. No severe central spinal canal stenosis. No epidural hematoma. Normal thickness of the prevertebral soft tissues. Mild amount of ground-glass opacity at the lung apices, less than on the prior study. Impression: No acute findings. This document has been electronically signed by: Anila Newman MD on 02/04/2025 17:00:44
[2025-02-04 14:12] VITALS: BP 154/84; PULSE 80; RESP 20; TEMP 37; O2SAT 98
[2025-02-04 14:14] VITALS: BP 140/80; PULSE 75; O2SAT 98
[2025-02-04 14:15] VITALS: BP 154/84; PULSE 88; RESP 16; O2SAT 97; BMI 18.7
--- NOTE | 2025-02-04 14:54 | ED.GENADULT ---
HPI - General Adult General Chief complaint: Fall Stated complaint: FALL Time Seen by Provider: 02/04/25 14:54 Source: patient, EMS, RN notes reviewed and old records reviewed Mode of arrival: EMS Limitations: no limitations History of Present Illness ED Provider: Mark HPI narrative: Patient is an 89-year-old male with history of HTN, HLD, AFib on Eliquis, CHF presenting to the emergency department with complaint of left shoulder pain after a trip and fall prior to arrival. Patient presenting via EMS from the [facility]. He is not supposed to ambulate on his own but got up out of the wheelchair and took a few steps, tripped and fell. Positive head strike on the floor and patient states he landed primarily on his left shoulder. No loss of consciousness. Patient unable to tolerate C-collar for EMS. [facility] home staff and EMS reporting unequal pupils. MD complaint: left shoulder pain Onset (ago): minute(s) Related Data Home Medications ?Medication ?Instructions ?Recorded ?Confirmed acetaminophen 325 mg tablet 650 mg PO Q4H PRN Pain 12/03/24 12/03/24 apixaban 2.5 mg tablet (Eliquis) 2.5 mg PO BID 12/03/24 12/03/24 cholecalciferol (vitamin D3) 25 25 mcg PO DAILY 12/03/24 12/03/24 mcg (1,000 unit) tablet (Vitamin D3) lisinopril 20 mg tablet 20 mg PO DAILY 12/03/24 12/03/24 metoprolol succinate 25 mg 25 mg PO DAILY 12/03/24 12/03/24 tablet,extended release 24 hr ondansetron HCl 4 mg tablet 4 mg PO Q6H PRN Nausea 12/03/24 12/03/24 simvastatin 20 mg tablet 20 mg PO DAILY 12/03/24 12/03/24 alendronate 70 mg tablet 70 mg PO QWEEK 12/18/24 12/18/24 docusate sodium 100 mg capsule 200 mg PO BID 12/18/24 12/18/24 lactulose 10 gram/15 mL oral 10 g PO DAILY PRN 12/18/24 12/18/24 solution pseudoephedrine-guaifenesin 30 10 ml PO Q4-6H PRN 12/18/24 12/18/24 mg-100 mg/5 mL oral syrup Allergies Allergy/AdvReac Type Severity Reaction Status Date / Time No Known Allergies Allergy Verified 02/04/25 14:17 Review of Systems Review of Systems: As per HPI Yes all other systems are reviewed and are negative Constitutional: Constitutional: Reports as per HPI [facility] Past Medical History Medical History (Updated 02/04/25 @ 17:23 by Cherie Flores NP) Chronic a-fib Hx of longterm use of blood thinners Prostate cancer Macular degeneration Hyperlipidemia Osteoporosis Hypertension Atrial fibrillation with RVR Social History Social History (Updated 12/18/24 @ 15:19 by Landy Phillip CMA) Household Members: Other Household Members Other:: [facility] home Alcohol intake: current Patient Tobacco Use Status: Former Tobacco user Smoked in Last 30 Days: No Second Hand Smoke Exposure: No Use of substances other than those prescribed or required for medical reasons: No Advance Directives: No Advance Directives Information Provided: No Do you have a plan to hurt others: No Plan service: Yes Physical Exam ED Vital Signs: Vital Signs - 24 hr 02/04/25 14:12 02/04/25 14:15 02/04/25 17:11 Temperature 98.6 F Pulse Rate 80 88 64 Respiratory Rate 20 16 18 Blood Pressure 154/84 H 154/84 H 134/61 Pulse Oximetry 98 97 95 Oxygen Delivery Method Room Air Room Air Room Air BMI result Body Mass Index 18.7 Vital signs have been reviewed and appear to be correct. Blood pressure normal. Heart rate normal. Respiratory rate normal. Temperature normal. Oxygen saturation normal. Const General: cooperative, healthy appearing and no acute distress Orientation/consciousness: oriented to person, oriented to place, oriented to time and patient oriented x3 Limitations: no limitations [facility] Head: Yes normal to inspection, Yes No palpable skull fracture present, Yes normocephalic, No Jorge's sign and No periorbital ecchymosis Ears: hearing grossly normal bilaterally, external ears normal and TM's normal bilaterally General nose exam: Normal external nose present and Normal nasal mucous membranes and turbinates present Face and sinus: Yes face symmetric Mouth: oropharynx normal and moist mucous membranes Throat: Yes uvula midline Eyes Pupils: Equal, round and reactive pupils present Neck Neck: Yes normal visual inspection and Yes supple Resp Effort & Inspection: normal respiratory effort and able to speak in complete sentences Auscultation: clear to auscultation bilaterally Cardio Rate: regular rate Rhythm: regular rhythm Heart sounds: S1 normal heart sound present and S2 normal heart sound present GI Palpation (GI): Soft to palpation and nontender Auscultation: normoactive bowel sounds General: Yes no CVA tenderness Back/Spine/Pelvis Back: no CVA tenderness Skin General skin exam: elasticity normal and turgor normal Neuro General: oriented to person, oriented to place, oriented to time, patient oriented x3, moves all extremities, no focal motor deficits and CN's II-XI intact bilaterally Cranial nerves: Yes Equal, round and reactive pupils present Cognition (Neuro): normal cognition Extrem General: Yes full ROM, Yes no pedal edema and Yes no calf tenderness Left upper extremity: shoulder/upper arm Details: tenderness Location: of the clavicle Laterality: laterally and deformity Location: of the clavicle (no tenting) Location: laterally and hand Details: vascular exam Details: radial pulse present and normal capillary refill and normal ROM of fingers Psych Mental Status: mental status grossly normal Affect: normal affect Thought process: Normal thought process present Medications Administered Discontinued Medications Generic Name Dose Route Start Last Admin Trade Name Freq PRN Reason Stop Dose Admin Acetaminophen 975 mg 02/04/25 15:15 02/04/25 15:24 Acetaminophen 325 Mg Tablet PO 02/04/25 15:16 975 mg ONCE ONE Administration Medical Decision Making Medical Decision Making [facility] Narrative: Patient is an 89-year-old male with history of HTN, HLD, AFib on Eliquis, CHF presenting to the emergency department with complaint of left shoulder pain after a trip and fall prior to arrival. On exam patient is awake, A+Ox3, VS WNL, afebrile, normal neurological exam without focal deficits, physical exam findings as above. Given reported symptoms and physical exam findings, initial differential includes but is not limited to ICH, skull or cervical vertebral fracture or subluxation, clavicle fracture, shoulder fracture or dislocation. X-ray left shoulder notable for left clavicle fracture. CT head and c-spine without evidence of ICH, skull or cervical vertebral fracutre or subluxation. My interpretation is in agreement with the radiologist's interpretation. Patient updated on results and all questions answered. Advised Tylenol for pain. Case discussed with mateo Bowles who is in agreement with sling and outpatient ortho follow up, also recommends patient avoids abduction of left arm. Return precautions discussed. Patient to be discharged back to [facility]. Differential Diagnosis Differential Diagnoses: The differential diagnosis associated with the presentation includes As per [facility] Admission/Observation Consideration of admission/observation: Escalation of care including admission/observation considered Patient would have been admitted to the hospital had their work up had any findings where hospital admission was appropriate and their clinical presentation warranted hospital admission. Independent Interpretation I performed an independent interpretation of an: Plain X-Ray and CT Scan Interpretation: X-ray left shoulder notable for left clavicle fracture. CT head and c-spine without evidence of ICH, skull or cervical vertebral fracutre or subluxation. Radiology Impression Discussion of test interpretation with radiology: I have reviewed the radiologist's reading. Radiologist Impression: Comparison: CR - XR CHEST 1V - 12/04/24 03:24 EDT Findings: There is a fracture of the midportion of the clavicle with 4 mm of displacement. The coracoclavicular distance is normal. The acromioclavicular joint is intact. No dislocation. Narrowed acromiohumeral interval may indicate rotator cuff pathology.Mild degenerative change. Bone mineralization is decreased. Soft tissue swelling. Impression: Fracture of the clavicle. CT head without contrast Comparison: None Findings: No acute hemorrhage. No extra-axial fluid collection. No hydrocephalus, mass-effect or herniation. Brown-white differentiation is maintained. There is patchy hypoattenuation of the periventricular and deep white matter, which is most likely the sequela of severe chronic small vessel ischemic disease. No acute orbital pathology. No acute soft tissue abnormality. No fracture. The visualized paranasal sinuses are predominantly clear. The mastoid air cells are clear. Impression: No acute findings. CT cervical spine without contrast Comparison: CT/SR - CT CHEST WO IV CON - 12/03/24 04:17 EDT Findings: Mild multilevel anterolisthesis /Retrolisthesis, degenerative. Mild levocurvature with the apex T2. No fracture. No severe central spinal canal stenosis. No epidural hematoma. Normal thickness of the prevertebral soft tissues. Mild amount of ground-glass opacity at the lung apices, less than on the prior study. Impression: No acute findings. External Record Review External record reviewed: Inpatient record, Office record and Outpatient record Discharge Plan Discharge Clinical Impression: Closed fracture of left clavicle Patient Disposition: er [facility] Transfer Details: return to [facility] Instructions: Clavicle Fracture (DC) Additional Instructions: You were evaluated in the emergency department today for injuries after a fall. Your x-ray showed a fracture of your left clavicle (collarbone). You were placed in a sling in the emergency department. You should avoid moving your left arm away from your body. You will need to follow-up with orthopedics as an outpatient. The CT scans of your head and neck did not show evidence of bleeding in your brain or fracture of your skull or cervical spine. We recommend that you take 650 mg of Tylenol every 6 hours as needed for pain. Return to the emergency department if you develop new numbness or tingling to your arm, change of color to your arm, worsening pain, or any other new or concerning symptoms. Prescriptions: No Action acetaminophen 325 mg Tablet 650 mg PO Q4H PRN (Reason: Pain) lisinopril 20 mg tablet 20 mg PO DAILY ondansetron HCl 4 mg Tablet 4 mg PO Q6H PRN (Reason: Nausea) simvastatin 20 mg Tablet 20 mg PO DAILY metoprolol succinate 25 mg tablet extended release 24 hr 25 mg PO DAILY cholecalciferol (vitamin D3) [Vitamin D3] 25 mcg (1,000 unit) Tablet 25 mcg PO DAILY Eliquis 2.5 mg tablet 2.5 mg PO BID docusate sodium 100 mg capsule 200 mg PO BID lactulose 10 gram/15 mL solution 10 g PO DAILY PRN pseudoephedrine-guaifenesin 30-100 mg/5 mL syrup 10 ml PO Q4-6H PRN alendronate 70 mg tablet 70 mg PO QWEEK Referrals: [facility] [Provider Group] - 1 week (left clavicle fracture s/p fall) Print Language: Unable To Collect
[2025-02-04] MEDS: Acetaminophen 325 MG TABLET 975 MG PO (15:24)
--- NOTE | 2025-02-04 16:03 | PC.NURSE ---
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
[2025-02-04 17:11] VITALS: BP 134/61; PULSE 64; RESP 18; O2SAT 95
[2025-02-04] MEDS: traMADoL HCL 50 MG TABLET 25 MG PO (17:43)
[2025-02-04 17:45] VITALS: BP 147/80; PULSE 80; RESP 18; O2SAT 97
--- NOTE | 2025-02-04 17:45 | PC.NURSE ---
Spoke with the patients son Jesus. He is aware of discharge plan, diagnosis and need for Ortho follow up.
--- NOTE | 2025-02-04 18:19 | PC.NURSE ---
report given to nursing processing talc and borate supervisor Angelika at [facility]
[2025-02-04 18:26] VITALS: BP 144/82; PULSE 78; RESP 18; TEMP 36.7; O2SAT 97
== END 2025-02-04 18:27 ==
PROVIDERS: Emergency Provider Emergency Medicine
DX: S42.002A Fracture of unspecified part of left clavicle, initial encounter for closed fracture (principal); W01.0XXA Fall on same level from slipping, tripping and stumbling without subsequent striking against object, initial encounter; Y93.89 Activity, other specified; Y92.129 Unspecified place in nursing home as the place of occurrence of the external cause; Y99.9 Unspecified external cause status; M25.512 Pain in left shoulder; I11.0 Hypertensive heart disease with heart failure; I50.9 Heart failure, unspecified; E78.5 Hyperlipidemia, unspecified; I48.20 Chronic atrial fibrillation, unspecified; Z87.891 Personal history of nicotine dependence; Z79.01 Long term (current) use of anticoagulants; Z79.02 Long term (current) use of antithrombotics/antiplatelets; Z79.899 Other long term (current) drug therapy
CPT/HCPCS: 70450; 72125; 73030; 99284

== ENCOUNTER → 2025-02-04 14:24 | Outpatient (BNV) | payer OTHER, MEDICARE, SELFPAY | PROVIDERS: Emergency Provider Emergency Medicine; Visit Provider Radiology Diagnostic Radiology | DX: M43.19 Spondylolisthesis, multiple sites in spine (principal); R90.82 White matter disease, unspecified; M25.512 Pain in left shoulder | CPT/HCPCS: 70450; 72125; 73030 ==

== ENCOUNTER 2025-02-15 09:14 | Outpatient (REF) | payer MEDICARE, SELFPAY ==
--- NOTE | ~2025-02-15 | XR_ITS ---
CLINICAL HISTORY: M89.8X1 - Other specified disorders of bone, shoulder Two views of the left clavicle. COMPARISON: None FINDINGS: Oblique displaced fracture of the distal 3rd of the left clavicle. There is displacement superiorly of the proximal fracture component by 1.3 cm, increased from prior imaging. Visualized portions of the proximal humerus and scapula and left chest wall ribs appear intact. No radiopaque foreign body. IMPRESSION: 1. Increased displacement of oblique fracture of the distal 3rd of the left clavicle. This document has been electronically signed by: Lucian Gallagher MD on 02/15/2025 15:39:45
--- OUTSIDE RECORDS SUMMARY | 2025-02-15 09:45 | XMS_ITS | Encounter Summary ---
Author Name [place] Address [address] [place] [address] Care Team Providers Care Tree Topper Name Role Phone MATHEW MARIE Primary Care Provider UnavailSHANTELL Barragan Primary Care Provider Unavailabl dodie Insurance Providers: All historical and current Section [...] Name Patient's Relationship to Policy [place] SUPPLEMEN BRIANNA MEDEX SAPPH SEAN H & V Aug 12, 2023 [id number] FRED HORVATH PATIENT BCBS OF [facility] MEDICARE SUPPLEMEN BRIANNA MEDEX SAPPH SEAN H AND Aug 12, 2023 [id number] FRED HORVATH PATIENT BCBS OF [facility] MEDICARE SUPPLEMEN BRIANNA MEDEX SAPPH SEAN H AND Aug 12, 2023 [id number] FRED HORVATH PATIENT MEDICARE (WNR) MEDICARE (M) PART A Dec 11, 2002 PART A [id number] FRED HORVATH PATIENT MEDICARE (WNR) MEDICARE (M) PART A Dec 11, 2002 PART A [id number] [phone] FRED HORVATH PATIENT MEDICARE (WNR) MEDICARE (M) PART B Dec 11, 2002 PART B [id number] FRED HORVATH PATIENT MEDICARE (WNR) MEDICARE (M) PART A Dec 11, 2002 PART A [id number] FRED HORVATH PATIENT Selected Encounter This section includes the information on record at [place] for the Encounter. Date/Time Encounter Type Encounter Description Reason Provider Source Oct 30, 2024 09:30 AM HEARING AID REPAIR/MODIFYIN G AUDIOLOGY ICD-10-CM Z46.1 Encounter for fitting and adjustment of hearing aid ZEE TREADWELL Dodie Encounter Template Text not used by [place] Assessments - Encounter Diagnoses This section includes the primary and secondary diagnoses documented for the Encounter. Date/Time Primary/Secondary Diagnosis Diagnosis Name Provider Source Oct 30, 2024 10:52 AM PRIMARY Encounter for fitting and adjustment of hearing aid ZEE TREADWELL [place] [facility] [place] [facility] Oct 30, 2024 10:52 AM SECONDARY Sensorineural hearing loss, bilateral ZEE TREADWELL [place] [facility] [place] [facility] Plan of Treatment: Future Appointments (+ 6 months) and Future Tests (+/- 45 days) The Plan of Treatment section includes future care activities for the patient from all [place] treatmentfacilities. This section includes future appointments and future orders which are active, pending or scheduled. Future Appointments This section includes appointments that were scheduled to occur 6 months from the date of the Encounter, up to a maximum of 20 appointments. The data comes from all [place] treatment facilities. Appointment Date/Time Appointment Type Appointme nt Facility Name January 25, 2025 02:00 PM AMBULATORY - REHAB MEDICIN E [place] [facility] [place] [facility] Apr 18, 2025 02:00 PM AMBULATORY - REHAB MEDICIN E [place] [facility] [place] [facility] Advance Directives: All historical and current Section Date Range: From patient's date of to the date document was created. This section includes ALL of a patient's completed or amended [place] Advance and Rescinded Directives. The entries below indicate that a directive exists for the patient, but an actual copy is not included with this document. The data comes from all [place] facilities. Date Advance Directives Provider Source Mar 16, 2023 ADVANCE DIRECTIVE ADILIA ROBERTS NO MIRI MAHARAJ [facility] Encounter Notes: All associated encounter notes This section contains the clinical notes associated to the Encounter. Date/Time Encounter Note(s) Provider Source Oct 30, 2024 08:19 AM AUDIOLOGY E & M NO TE: LOCAL TITLE: AUDIOLOGY CLINIC STANDARD TITLE: AUDIOLOGY E & M NOTE DATE OF NOTE: OCT 30, 2024@08:19 ENTRY DATE: OCT 30, 2024@08:19:39 AUTHOR: ZEE TREADWELL EXP COSIGNER: URGENCY: STATUS: COMPLETED has a history of bilateral sensorineural hearing loss. He was seen on 10-30-24 for hearing aid follow up regarding his Oticon RICs. He reports the left aid is intermittent and the right does not fit properly. On inspection, the phosphatic fertilizer supervisor cable is twisted on the right and wax is covering the wax guard, left. Replaced receivers and wax guards, suctioned mics. The listening check was then positive for both hearing aids/the fit is good. Otoscopy was WNLs, right ear, moderate amount of cerumen left ear. Recommend [facility] call to schedule an updated hearing test in six months. /juanita/ Fidel SANTOS, [facility]-A STAFF ADDICTION TREATMENT COUNSELOR Signed: 10/30/2024 12:59 ZEE TREADWELL [place] [facility]
== END 2025-02-15 09:15 | disposition home or self-care (01) ==
LOC: HO.HOSX 09:14
PROVIDERS: Visit Provider Physician Assistant
DX: M89.8X1 Other specified disorders of bone, shoulder (principal); S42.002A Fracture of unspecified part of left clavicle, initial encounter for closed fracture; W01.0XXA Fall on same level from slipping, tripping and stumbling without subsequent striking against object, initial encounter; Y93.9 Activity, unspecified; Y92.9 Unspecified place or not applicable; Y99.9 Unspecified external cause status; H91.90 Unspecified hearing loss, unspecified ear
CPT/HCPCS: 73000; 99202

== ENCOUNTER 2025-02-15 13:18 | Outpatient (AMB) | payer MEDICARE, SELFPAY ==
[2025-02-15 13:50] VITALS: BMI 18.6
--- NOTE | 2025-02-15 13:50 | A.OFFVIS_ITS ---
Vital Signs 02/15/25 13:50 Height 5 ft 9 in Weight 126 lb BMI 18.6 Intake Visit Reasons: ED/FC-Closed FC of left clavicle-DOI 02/03/25 Intake Note: Dennis is an 89 year old male who is also hard of hearing, presents today for an ER follow up if left clavicle fracture, 02/04/25. Patient presented to [facility] by ambulance after a trip and fall, hitting his head and landing on his shoulder. X-rays were taken and he was placed in a arm sling. Today patient reports pain ever now and then. Allergies No Known Allergies Allergy (Verified 02/15/25 13:52) Medication List - Last Reconciled 02/15/25 by Virginia Ni PA-C acetaminophen 650 mg PO Q4H PRN alendronate 70 mg PO QWEEK apixaban (Eliquis) 2.5 mg PO BID lactulose 10 grams PO DAILY PRN lisinopril 20 mg PO DAILY metoprolol succinate ER 25 mg PO DAILY pseudoephedrine-guaifenesin 30-100 mg/5 mL 10 mL PO Q4-6H PRN simvastatin 20 mg PO DAILY tramadol mg PO HPI HPI ED/FC-Closed FC of left clavicle-DOI 02/03/25: Details: 89-year-old male presents to the office today for an injury he sustained to his left clavicle on 02/03/2025. He was seen in the emergency department where x- rays were obtained which showed a minimally displaced clavicle fracture. He was placed in a sling [facility] our office for ortho eval. 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 Prostate cancer Macular degeneration Hyperlipidemia Osteoporosis Hypertension Atrial fibrillation with RVR Social History (Updated 12/18/24 @ 15:19 by Landy Phillip CMA) Household Members: Other Household Members Other:: [facility] Alcohol intake: current Patient Tobacco Use Status: Former Tobacco user Second Hand Smoke Exposure: No service: Yes Review of Systems Const All systems reviewed & are unremarkable except as noted in HPI and below Physical Exam Vital Signs: BMI result Body Mass Index 18.6 Const General: cooperative and no acute distress Orientation/consciousness: patient oriented x3 Resp Effort & Inspection: normal respiratory effort and able to speak in complete sentences Cardio Peripheral pulses: Peripheral pulses 2+ throughout Neuro General: patient oriented x3 Extrem Other: Left Clavicle No tenting. No skin breakdown. There is tenderness over the fracture site. Neurovascularly intact. Office Procedures AMB Fracture Care Fracture Billing Code: Fracture Billing Code Results Reviewed Results Reviewed: X-rays of the left clavicle obtained in the office today and reviewed by me show a minimally displaced left clavicle fracture with shortening Assessment & Plan Assessment & Plan (1) Closed fracture of left clavicle: Code(s): S42.002A - Fracture of unspecified part of left clavicle, initial encounter for closed fracture Category: Medical Plan: The patient can discontinue the use of the sling as long as he is keeping his arm at his side and not performing any lifting or weight-bearing activities. When he is in bed sleeping he can prop pillows around his left side so he does not roll onto his side. The facility should keep an eye on the skin to make sure there is no skin breakdown. If there are skin changes the patient should see us back immediately for re-evaluation otherwise he will see me back in 3-4 weeks with x-rays, sooner if needed. Orders: Orders XR clavicle LT Today M89.8X1 - Other specified disorders of bone, shoulder Coding Level of Care Code New Pt Level 3 (15730) Complex EM visit Add On G2211 Diagnoses Closed fracture of left clavicle S42.002A CPT Codes Fracture Care - Fracture Billing Code: Fracture Billing Code ([id number])
== END 2025-02-15 14:18 | disposition home or self-care (01) ==
LOC: HO.HOS 13:19
PROVIDERS: Visit Provider Physician Assistant
DX: S42.002A Fracture of unspecified part of left clavicle, initial encounter for closed fracture (principal)
CPT/HCPCS: 99203; G2211

== ENCOUNTER → 2025-02-15 13:39 | Outpatient (BNV) | payer MEDICARE, SELFPAY | PROVIDERS: Visit Provider Radiology Diagnostic Radiology | DX: S42.032A Displaced fracture of lateral end of left clavicle, initial encounter for closed fracture (principal) | CPT/HCPCS: 73000 ==

== ENCOUNTER 2025-03-13 06:36 | Outpatient (REF) | payer MEDICARE, SELFPAY ==
--- NOTE | ~2025-03-13 | XR_ITS ---
EXAMINATION: XR CLAVICLE, LEFT CLINICAL INFORMATION: M89.8X1 - Other specified disorders of bone, shoulder , follow-up fracture COMPARISON: February 15, 2025 TECHNIQUE: 2 view of the left clavicle. FINDINGS: Since prior examination there is been no shift in the alignment of the clavicle across the mid to lateral diaphysis. There is periosteal new bone formation consistent with early healing. XR/XR clavicle LT IMPRESSION: Healing left clavicle fracture. Electronically signed by: Wolf Cummings MD 03/13/2025 03:00 PM EDT
--- OUTSIDE RECORDS SUMMARY | 2025-03-14 06:38 | XMS_ITS | Patient Health Record ---
Author Organization [facility] Address [address] [place] [address] Support Name Relationship Address Phone RUBY HORVATH Guarantor Unknown [phone] Allergies No Known Allergies Reason For Referral No Information Social History Tobacco Use: Social History Observation Description Date Details (start date - stop date) Former Smoker NA - NA Social History Social History Social Info Question Answer Notes Smoking Are you a: former smoker Section Notes: Former smoker Former smoker Former smoker Former smoker Problems Problem Type SNOMED Code ICD Code Onset Dates Problem Status W/U Status Risk Notes Problem Essential hypertension (I10) Active confirmed Problem Persistent atrial fibrillation (968981017) Persistent atrial fibrillation (I48.19) Active confirmed Problem Hypercholesterolemia (23700726) Hypercholesterolemia (E78.00) Active confirmed Plan Of Treatment No Information Insurance Providers Payer Name Payer Address Payer Phone Subscriber Number Group Number Insured Name Patient Relationship to Insured Coverage Start Date Coverage End Date [facility] [address] [place] [address] [phone] [id number] RUBY HORVATH Self - patient is the insured Safety Insurance [address] [address] [place] [address] [id number] RUBY HORVATH Self - patient is the insured Medical (General) History Medical History History ICD Code atrial fibrillation, hypertension, glauc dimas
--- OUTSIDE RECORDS SUMMARY | 2025-03-14 06:38 | XMS_ITS | Clinical Summary ---
Author Organization [employer] Address [address] 7 [place] [address] Care Team Providers Care Credit Administration Officer Name Role Phone Unavailable Primary Care Provider [...] Encounters Date Type Department Care Team Description 01/15/2025 2:30 PM EDT Office Visit [facility] [address] [place] [address] Mita Williamson from Last 3 Months Social [...] Orientation Straight 08/31/2024 3: 13 PM EST Last Filed Vital Signs Vital Sign Reading Time Taken Comments Blood Pressure 118/76 01/15/2025 2:28 PM EDT Pulse 57 01/15/2025 2:28 PM EDT Temperature - - Respiratory Rate - - Oxygen Saturation - - Inhaled Oxygen Concentration - - Weight - - Height - - Body Mass Index - - Plan of Treatment Upcoming Encounters Date Type Department Care Team (Late st Contact Info) Description 05/01/2025 10:30 AM EDT Office Visit [facility] [address] [place] [address] Fredy Soliz, DMD [address] [place] [address] Health Maintenance Due Date Last Done Comments Depression Screening 1935 Lipid Panel 1935 SDOH Screening 1935 Alcohol/Substance Use Screening 1949 RSV Patients and Patients Aged 60 years or older (1 - 1-dose 75+ series) 2012 COVID-19 Vaccine ( season) 2024 08/19/2023, 04/14/2023, 08/02/2022, Additional history exists Dental Oral Exam 05/01/2025 10/31/2024 Influenza Vaccine (Season Ended) 2025 06/03/2023, 08/02/2022, 07/01/2021, Additional history exists Dental Prophylaxis 07/19/2025 01/15/2025 Dental X-Ray: Bitewings 11/01/2025 10/31/2024 Tobacco Screening 01/15/2026 01/15/2025 Dental X-Ray: Full Mouth 11/01/2027 10/31/2024 DTaP/Tdap/Td Vaccines (4 - Td or Tdap) 12/10/2031 12/09/2021, 02/28/2013, 02/28/2013, Additional history exists Pneumococcal Vaccine: 50+ Years Completed 10/25/2017, 04/25/2012, 12/16/2003, Additional history exists Zoster Vaccines Completed 10/31/2019, 06/04/2019 HIB Vaccines Aged Out No longer eligi [...] patient's age to complete this topic Meningococcal B Vaccine Aged Out No l onger eligible based on patient's age to complete [...] Procedure Name Priority Date/Time Associated Diagnosis Comments COMPREHENSIVE PERIODONTAL EVALUATION - NEW OR ESTABLISHED PATIENT Routine 01/15/2025 2:30 PM EDT ORAL HYGIENE INSTRUCTIONS Routine 2024 2:30 PM EDT NUTRITIONAL COUNSELING FOR CONTROL OF DENTAL DISEASE Routine 01/15/2025 2:30 PM EDT TOPICAL APPLICATION OF FLUORIDE VARNISH Routine 01/15/2025 2:30 PM EDT PROPHYLAXIS - ADULT Routine 01/15/2025 2 :30 PM EDT INTRAORAL - COMPLETE SERIES OF RADIOGRAPHIC IMAGES Routine 10/31/2024 11:00 AM EST COMPREHENSIVE ORAL EVALUATION - NEW OR ESTABLISHED PATIENT Routine 10/31/2024 11:00 AM EST from Last 3 Months or Most Recently Relevant to Health Maintenance
--- OUTSIDE RECORDS SUMMARY | 2025-03-14 06:39 | XMS_ITS | Patient Health Record ---
Author Organization [facility] Address [address] [address] Care Team Providers Care Phlebotomy Lab Assistant Name Role Phone Hiren García Primary Care Provider Unavailab Ba Topete Unavailable [phone] Allergies Allergen (clinical drug ingredient) Drug/Non Drug Allergy documented on EMR Reaction Allergy Type Onset Date Status Pollen Pollen Unknown Allergy Active Reason For Referral No Information Medications Medication SIG (Take, Route, Frequency, Duration) Notes Start Date End Date Status Metoprolol Succinate 25 MG 1 capsule Ora lly Once a day Active Docusate Sodium 100 MG 1 capsule as need ed Orally Once a day Active Lisinopril 20 MG 1 tablet Orally Once a day Active PreserVision AREDS 2 - as directed Orally Active Simvastatin 80 MG 1 tablet in the even ing Orally Once a day Active Cholecalciferol 25 MCG (1000 UT) 1 tablet Orally Once a day Active Problems Problem Type SNOMED Code ICD Code Onset Dates Problem Status W/U Status Risk Notes Problem Long-term current use of anticoagulant (900406163) shelter (current) use of anticoagulants (Z79.01) Active confirmed Problem 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 Problem Benign hypertension (08099426) Benign hypertension (I10) Active confirmed Encounters Encounter Location Date Provider Diagnosis [facility] [address] [address] 07/13/2024 Ba De La Cruz [facility] [address] [address] 07/13/2024 Ba De La Cruz Plan Of Treatment No Information Insurance Providers Payer Name Payer Address Payer Phone Subscriber Number Group Number Insured Name Patient Relationship to Insured Coverage Start Date Coverage End Date [address] [address] [id number] Dennis Brown Self - patient is the insured Medical (General) History Medical History History ICD Code Acquired absence of other specified part s of digestive tract Z90.49 Benign hypertension I10 HLD (hyperlipidemia) E78.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
== END 2025-03-13 06:37 | disposition home or self-care (01) ==
LOC: HO.HOSX 06:36
PROVIDERS: Visit Provider Physician Assistant
DX: S42.002D Fracture of unspecified part of left clavicle, subsequent encounter for fracture with routine healing (principal)
CPT/HCPCS: 73000; 99212

== ENCOUNTER 2025-03-13 12:58 | Outpatient (AMB) | payer MEDICARE, SELFPAY ==
--- NOTE | 2025-03-13 13:18 | MHC.OFFVIS ---
Vital Signs 03/13/25 13:21 Height 5 ft 9 in Weight 126 lb BMI 18.6 Intake Visit Reasons: OV-Closed FC of left clavicle-DOI 02/03/25-w/xrays Intake Note: Dennis is an 89 year old male who is also hard of hearing, presents today for a follow up of left clavicle fracture, DOI 02/04/25. Patient reports he is doing well, states he has pain with applying pressure. Allergies No Known Allergies Allergy (Verified 03/13/25 13:20) Medication List - Last Reconciled 03/13/25 by Virginia Ni PA-C acetaminophen 650 mg PO Q4H PRN alendronate 70 mg PO QWEEK apixaban (Eliquis) 2.5 mg PO BID lactulose 10 grams PO DAILY PRN lisinopril 20 mg PO DAILY metoprolol succinate ER 25 mg PO DAILY pseudoephedrine-guaifenesin 30-100 mg/5 mL 10 mL PO Q4-6H PRN simvastatin 20 mg PO DAILY tramadol mg PO HPI HPI OV-Closed FC of left clavicle-DOI 02/03/25-w/xrays: Details: 89-year-old gentleman returns to the office today for a follow-up left clavicle fracture. He is doing quite well with his motion and activities with no concerns today. 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 Prostate cancer Macular degeneration Hyperlipidemia Osteoporosis Hypertension Atrial fibrillation with RVR Social History Household Members: Other Household Members Other:: [facility] Alcohol intake: current Patient Tobacco Use Status: Former Tobacco user Second Hand Smoke Exposure: No service: Yes Review of Systems Const All systems reviewed & are unremarkable except as noted in HPI and below Physical Exam Vital Signs: BMI result Body Mass Index 18.6 Const General: cooperative and no acute distress Orientation/consciousness: patient oriented x3 Resp Effort & Inspection: normal respiratory effort and able to speak in complete sentences Cardio Peripheral pulses: Peripheral pulses 2+ throughout Neuro General: patient oriented x3 Extrem Other: Left Clavicle No tenting. No skin breakdown. There is no tenderness over the fracture site. Neurovascularly intact. Results Reviewed Results Reviewed: X-rays of the left clavicle obtained in the office today and reviewed by me show a minimally displaced left clavicle fracture with shortening adn callus formation Assessment & Plan Assessment & Plan (1) Closed fracture of left clavicle: Code(s): S42.002A - Fracture of unspecified part of left clavicle, initial encounter for closed fracture Category: Medical Plan: Patient will continue with activities as tolerated. He will continue to work with physical therapy for his motion and strengthening exercises. If symptoms arise or there is any concerns he can contact our office otherwise follow up as needed. Orders: Orders XR clavicle LT Today M89.8X1 - Other specified disorders of bone, shoulder Coding Level of Care Code Global (84799) Diagnoses Closed fracture of left clavicle S42.002A
[2025-03-13 13:21] VITALS: BMI 18.6
== END 2025-03-13 13:46 | disposition home or self-care (01) ==
LOC: HO.HOS 12:58
PROVIDERS: Visit Provider Physician Assistant
DX: S42.002A Fracture of unspecified part of left clavicle, initial encounter for closed fracture (principal)
CPT/HCPCS: 99213

== ENCOUNTER → 2025-03-13 13:04 | Outpatient (BNV) | payer MEDICARE, SELFPAY | PROVIDERS: Visit Provider Radiology Diagnostic Radiology | DX: S42.002D Fracture of unspecified part of left clavicle, subsequent encounter for fracture with routine healing (principal) | CPT/HCPCS: 73000 ==

== ENCOUNTER → 2025-03-19 10:52 | Outpatient (REF) | payer MEDICARE, SELFPAY ==
--- NOTE | 2025-03-19 10:56 | CA_ITS ---
Transthoracic Echocardiogram Patient (Last, First, Middle): Dennis Brown, Gender: Male Date of : 1935 Age: 89 Procedure Date: 03/19/2025 Procedure Type: Transthoracic Echocardiogram Location: OP Height: 172. cm Weight: 57.61 kg BSA: 1.68 m2 Heart Rate: 58 bpm BP: 98 / 55 mmHg Cartridge Filler: KEL Cornell MD: Rashawn Sesay NP Avionics Systems Integration Specialist: Artie Reza MD Symptoms: I50.9 - Heart failure, unspecified Study Quality: Fair ECG Rhythm: Atrial Fibrillation Conclusions: - 1. [id number]-ocgrzbdm LV systolic dysfunction with LVEF of 40-45% 2. Moderately reduced RV systolic function 3. Severe biatrial enlargement 4. Mild aortic and mitral regurgitation 5. Normal RV systolic pressure 6. Mildly dilated ascending aorta 7. NO gross pericardial effusion Findings Left Ventricle Normal left ventricular cavity size. There is normal left ventricular wall thickness. The left ventricular systolic function is mild to moderately decreased. The visually estimated ejection fraction is between 40-45%. Diastolic function is indeterminate on the basis of available data. Right Ventricle Moderately increased right ventricular cavity size. There is moderately decreased right ventricular systolic function. Atria Severe biatrial enlargement. Aortic Valve There is mild calcification of the aortic valve. There is no aortic valve stenosis. There is mild aortic valve regurgitation. Mitral Valve There is mild anterior and posterior mitral leaflet thickening. There is mild mitral valve regurgitation. There is no mitral valve stenosis. Pulmonic Valve The pulmonic valve is likely normal. Tricuspid Valve Normal tricuspid valve structure. There is mild tricuspid valve regurgitation. The right ventricular systolic pressure is normal. The right ventricular systolic pressure is 26 mmHg. Normal right atrial pressure. There is no evidence of pulmonary hypertension. Great Vessels The pulmonary artery was not well visualized. There is mild dilatation of the ascending aorta measuring 3.80 cm. Small plaque is seen in the sino tubular ridge. Venous The inferior vena cava is normal in size. Inferior vena cava flow is normal. Pericardium/Pleural There is no evidence of pericardial effusion. Prior Study Comparison Changes noted compared to prior study dated: 12/04/2024. LV ejection fraction has marginally improved Measurements 2D Linear Measurements IVSd: 0.88 0.6-0.9/0.6-1.0 cm LVIDd: 4.83 3.9-5.3/4.2-5.9 cm LVIDd Index: 2.88 2.4-3.2/2.2-3.1 cm/m2 LVIDs: 3.35 2.0-3.6 cm LVPWd: 0.87 0.7-1.1 cm LA Diam: 3.30 2.7-3.8/3.0-4.0 cm LAIDs Index: 1.96 1.5-2.3 cm/m2 LV Mass: 178.16 67-162/88-224 g LV Mass Index: 106.05 43-95/49-115 g/m2 LVOT Diam: 2.20 3.0+(-)1.3 cm 2D Systolic Function EF 4C: 43.40 >55% EF 2C: 45.70 >55% EF BiP: 44.20 >55% Mitral Valve MV Pk E: 0.83 MV Decel Time: 221.00 E'Lateral: 8.78 E'Medial: 7.91 E/E' Med: 10.50 E/E' Lat: 9.40 PHT: 65.00 MVA PHT: 3.38 Decel Hughes: 3.87 Aortic Valve AoV Pk Haroldo: 1.27 AoV Mn Haroldo: 0.90 AoV VTI: 0.29 AoV Pk Grad: 6.00 Aov Mn Grad: 4.00 MARTIN Cont.VTI: 1.72 LVOT LVOT Pk Haroldo: 0.59 LVOT Mn Haroldo: 0.42 LVOT VTI: 0.13 LVOT Pk Grad: 1.00 LVOT Mn Grad: 1.00 LVOT Diam: 2.20 LVOT Area: 3.80 Diastolic Function MV Pk E: 0.83 E'Medial: 7.91 E/E' Med: 10.50 E' Laterial: 8.78 E/E' Lat: 9.40 Right Ventricle TAPSE (mm): 12.40 TVS' Haroldo: 8.20 Tricuspid Valve TR Pk Haroldo: 2.39 TR Pk Grad: 23.00 RA Press: 3.00 RVSP: 26.00 Great Vessels Aorta Sinus of Valsalva: 3.50 2.0-3.5 cm Ao Asc: 3.80 2.1-3.4 cm Ao Arch: 2.70 Pulmonary Valve PV Pk Haroldo: 0.67 Peak PV Grad: 2.00 Updated in Other Vendor System with Status of Final Artie Reza MD electronically signed on 03/19/2025 4:10:34 PM with status of Final
--- OUTSIDE RECORDS SUMMARY | 2025-03-19 11:57 | XMS_ITS | Clinical Summary ---
Author Organization [employer] Address [address] [place] [address] Care Team Providers Care Carpet Journeyman Name Role Phone Unavailable Primary Care Provider [...] Description 01/15/2025 2:30 PM EDT Office Visit [facility] [address] [place] [address] Mita Williamson from Last 3 Months Social [...] Description 05/01/2025 10:30 AM EDT Office Visit [facility] [address] [place] [address] Fredy Soliz, DMD [address] [place] [address] Health Maintenance Due Date Last Done Comments Depression Screening 1935 Lipid Panel 1935 SDOH Screening 1935 Alcohol/Substance Use Screening 1949 RSV Patients and Patients Aged 60 years or older (1 - 1-dose 75+ series) 2012 COVID-19 Vaccine ( season) 2024 08/19/2023, 04/14/2023, 08/02/2022, Additional history exists Dental Oral Exam 05/01/2025 10/31/2024 Influenza Vaccine (#1) 2025 , 08/02/2022, 07/01/2021, Additional history exists Dental Prophylaxis [...]
--- OUTSIDE RECORDS SUMMARY | 2025-03-19 11:57 | XMS_ITS | Patient Health Record ---
Author Organization [facility] Address [address] [place] [address] Support Name Relationship Address Phone RUBY HORVATH Guarantor Unknown [phone] Allergies No Known Allergies Reason For Referral [...] W/U Status Risk Notes Problem Essential hypertension (67441567) Essential hypertension (I10) Active confirmed Problem Persistent atrial fibrillation (760676221) Persistent atrial fibrillation (I48.19) Active confirmed Problem Hypercholesterolemia (59359934) Hypercholesterolemia (E78.00) Active confirmed Plan Of Treatment No Information Insurance Providers Payer Name Payer Address Payer Phone Subscriber Number Group Number Insured Name Patient Relationship to Insured Coverage Start Date Coverage End Date [facility] [address] [place] [address] [phone] [id number] RUBY HORVATH Self - patient is the insured Safety Insurance [address] [address] [place] [address] [id number] RUBY HORVATH Self - patient is the insured Medical (General) History Medical History History ICD Code atrial fibrillation, hypertension, glauc dimas
--- OUTSIDE RECORDS SUMMARY | 2025-03-19 11:57 | XMS_ITS | Patient Health Record ---
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 Problem Benign hypertension (76708807) Benign hypertension (I10) Active confirmed Encounters Encounter Location Date Provider Diagnosis [facility] [address] [address] 07/13/2024 Ba De La Cruz [facility] [address] [address] 07/13/2024 Ba De La Cruz Plan Of Treatment No Information Insurance Providers Payer Name Payer Address Payer Phone Subscriber Number Group Number Insured Name Patient Relationship to Insured Coverage Start Date Coverage End Date [address] [address] [id number] Dennis Brown Self - patient is the insured Medical (General) History Medical History History ICD Code Acquired absence of other specified part s of digestive tract Z90.49 Benign hypertension I10 HLD (hyperlipidemia) E78.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
== END ==
LOC: HO.CARD 10:52
DX: I50.9 Heart failure, unspecified (principal)
CPT/HCPCS: 93306

== ENCOUNTER → 2025-03-19 10:56 | Outpatient (BNV) | payer MEDICARE, SELFPAY | PROVIDERS: Visit Provider Internal Medicine Cardiovascular Disease | DX: I51.7 Cardiomegaly (principal) | CPT/HCPCS: 93306 ==

== ENCOUNTER 2025-03-26 13:30 | Outpatient (REF) | payer MEDICARE, SELFPAY ==
--- NOTE | ~2025-03-26 | FL_ITS ---
EXAMINATION: Modified Barium Swallow CLINICAL INFORMATION: Dysphagia. COMPARISON: None. TECHNIQUE: Modified barium swallow was performed under lateral fluoroscopy with patient in standing position. Barium mixed with solids and liquids of different consistencies was administered by the speech pathologist. Examination was recorded in the fluoroscopy suite. FINDINGS: There was persistent laryngeal penetration with glottic/subglottic aspiration on thin liquids. There was early spillover and persistent vallecular and piriform sinus pooling of all consistencies. There was transient laryngeal penetration without subglottic aspiration on nectar thick liquids. There was no laryngeal penetration or aspiration on honey thick liquids. FLUOROSCOPY TIME: 2 minutes, 48 seconds Number of Spot Images: N/A DOSE AREA PRODUCT: [id number] uGy-m2 (microgray-meter squared) FL/FL Modified Barium Swallow IMPRESSION: Persistent laryngeal penetration with subglottic aspiration on thin liquids. Transient laryngeal penetration on nectar thick liquids. No penetration or aspiration on honey thick liquids. Refer to the speech therapy report to follow for further detail. Electronically signed by: Gary Gómez MD 03/26/2025 02:40 PM EDT
--- OUTSIDE RECORDS SUMMARY | 2025-03-26 14:52 | XMS_ITS | Patient Health Record ---
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 Problem Benign hypertension (67612431) Benign hypertension (I10) Active confirmed Encounters Encounter Location Date Provider Diagnosis [facility] [address] [address] 07/13/2024 Ba De La Cruz [facility] [address] [address] 07/13/2024 Ba De La Cruz Plan Of Treatment No Information Insurance Providers Payer Name Payer Address Payer Phone Subscriber Number Group Number Insured Name Patient Relationship to Insured Coverage Start Date Coverage End Date [address] [id number] Dennis Brown Self - patient is the insured Medical (General) History Medical History History ICD Code Acquired absence of other specified part s of digestive tract Z90.49 Benign hypertension I10 HLD (hyperlipidemia) E78.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
--- OUTSIDE RECORDS SUMMARY | 2025-03-26 14:52 | XMS_ITS | Clinical Summary ---
Author Organization [employer] Address [address] [facility] 7 [place] [address] Care Team Providers Care Veterinary Assistant Technician Name Role Phone Unavailable Primary Care Provider [...] Description 01/15/2025 2:30 PM EDT Office Visit [facility] [address] [place] [address] Mita Williamson from Last 3 Months Social [...] Description 05/01/2025 10:30 AM EDT Office Visit [facility] [address] [place] [address] Fredy Soliz, DMD [address] [place] [address] Health Maintenance Due Date Last Done Comments [...]
--- NOTE | 2025-03-27 10:15 | MHC.SL.IMP ---
Date of Plan of Treatment: 03/26/25 Onset of Symptoms/Illness: 12/03/24 Date Treatment Started: 03/26/25 Admitting Diagnosis: Hx chronic afib, prostate CA, htn Primary Speech & Language Diagnosis: R13.12 Oropharyngeal Phase Dysphagia Reason for Today's Visit: 28329 Modified Barium Swallow Study Pre-evaluation Dietary Consistencies: Regular Pre-evaluation Liquid Consistency: Hammett Thick Pre-evaluation Medication Administration: UNK Medical History: Modified Barium Swallow Study Fluoroscopic Evaluation of Swallowing Function CPT Code 92783 Evaluation Year: 2024 Reason for Study: Hx dysphagia Referring Physician: Evelyn Davison PHOTOCOPYING MACHINE OPERATOR Evaluating Clinician: Ramandeep Piper MA, CCC-ARCHITECTURAL DRAFTER Study Number: 1 Patient Name: Dennis Brown Status: Outpatient, Wheelchair Age: 89 Sex: Male Medical History Medical History (Updated 02/05/25 @ 00:00 by Background Daemon) Chronic a-fib 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 Patient was accompanied by a nursing staff member from the home, who reports patient eats regular texture foods and nectar thick liquids, as he was observed to cough when drinking. Patient initially denied having trouble swallowing, but upon further inquiry, admitted to coughing on liquids. Patient is reportedly followed by their speech pathologist, Jamilah Marrufo. Patient is very hard of hearing and past medical history also includes chronic afib, hypertension, and hx prostate cancer. Patient was seen by ARCHITECTURAL DRAFTER team at [facility] during a prior hospitalization in November for acute hypoxic respiratory failure and metabolic encephalopathy secondary to likely aspiration pneumonia. Patient was eventually upgraded to a pureed diet and nectar thick liquids at discharge, with a recommendation to continue speech therapy at his LTC facility. Oral Motor Exam Facial Symmetry: Symmetrical Mouth Occlusion: Normal Tongue Size: Normal Is patient able to manage secretions?: Yes Food and Liquid Trials: Oral Impairment: Lip Closure: Did not test Oral Impairment: Tongue Control During Bolus Hold: 3=Posterior escape of greater than half of bolus Oral Impairment: Bolus Preparation/Mastication: 2=Disorganized chewing/mashing with solid pieces of bolus Oral Impairment: Bolus Transport/Lingual Motion: 3=Repetitive/disorganized tongue motion Oral Impairment: Oral Residue: 1=Trace residue lining oral structures Oral Impairment:Initiation of Pharyngeal Swallow: 3=Bolus head in pyriforms Pharyngeal Impairment: Soft Palate Elevation: 0=No bolus between soft palate (SP)/pharyngeal wall (PW) Pharyngeal Impairment: Laryngeal Elevation: 1=Partial thyroid cartilage/arytenoids to epiglottic petiole movement Pharyngeal Impairment: Anterior Hyoid Excursion: 1=Partial anterior movement Pharyngeal Impairment: Epiglottic Movement: 1=Partial inversion Pharyngeal Impairment: Laryngeal Vestibular Closure:: 1=Incomplete: narrow column air/contrast in laryngeal vestibule Pharyngeal Impairment: Pharyngeal Stripping Wave: 1=Present: diminished Pharyngeal Impairment: Pharyngeal Contraction: Did not test Pharyngeal Impairment: Pharyngoesophageal Segment Openin=Partial distention/partial duration: partial obstruction of flow Pharyngeal Impairment: Tongue Base (TB) Retraction: 3=Wide column of contrast/air between TB and posterior PW Pharyngeal Impairment: Pharyngeal Residue: 2=Collection of residue within or on pharyngeal structures Pharyngeal Impairment: Esophageal Clearance Upright Position: Did not test Impressions and Recommendations OBJECTIVE: Time-out: performed at 14:30 Evaluation Start: 14:10; Stop: 14:20 Patient Positioning: Seated 70-90 degrees Viewing Planes: LATERAL ONLY Contrast: MBSImP? Standardized Protocol using commercially prepared, standardized Barium viscosities, including: Varibar? THIN LIQUID (40% w/v, <15 cps) , Varibar? NECTAR (40% w/v, <150-450 cps) , Varibar? THIN HONEY (40% w/v, <800-1800 cps) , Varibar? PUDDING (40% w/v, <2225-5104 cps) , 1/2 Shortbread Cookie (1 x1 x.25 ) MBSImP ID: [id number] MBSImP Results: Lip closure for intraoral bolus containment could not be assessed due to logistical reasons not related to physiologic impairment. Tongue control during bolus hold allowed posterior escape of greater than half of the bolus. Bolus preparation and mastication demonstrated disorganized chewing/mashing with solid pieces of the bolus unchewed. Bolus transport/lingual motion was with repetitive/disorganized motion of the tongue. Oral residue was a trace, lining oral structures. Initiation of the pharyngeal swallow occurred when the bolus head was in the pyriform sinuses. Soft palate elevation resulted in no bolus between the soft palate and the pharyngeal wall. Laryngeal elevation was decreased, with partial superior movement of the thyroid cartilage/partial approximation of the arytenoids to the epiglottic petiole. Anterior hyoid excursion demonstrated partial anterior movement. Epiglottic movement resulted in partial inversion. Laryngeal vestibular closure was incomplete, with a narrow column of air/contrast noted within the laryngeal vestibule at the height of the swallow. Pharyngeal stripping wave was present, but diminished. Pharyngeal contraction could not be determined due to logistical reasons not related to physiologic impairment. Pharyngoesophageal segment opening demonstrated partial distension/partial duration, with partial obstruction of bolus flow. Tongue base retraction allowed a wide column of contrast or air between the retracted tongue base and the posterior pharyngeal wall. Pharyngeal residue was a collection of residue within or on pharyngeal structures. Esophageal clearance in the upright position could not be assessed due to logistical reasons not related to physiologic impairment. Oral Impairment Score: 11 (absence of score, component 1) Pharyngeal Impairment Score: 11 (absence of score, component 13) Esophageal Impairment Score: --- (absence of score, component 17) Laryngeal Penetration and Aspiration: Neither penetration nor aspiration was observed in today's study with Cookie, Pudding-thick, Honey-thick. Both Penetration and Aspiration were observed in today's study. Hammett-thick Contrast entered the airway, remained above the vocal folds, and was ejected from the airway. Thin Contrast entered the airway, passed below the vocal folds, and no effort was made to eject. ASSESSMENT: This exam was performed by the radiologist and the speech pathologist. Patient was seated upright in his wheelchair for lateral view only. He was able to feed himself without difficulty and trialed the following consistencies: Thin liquid (single cup sips) Hammett thick liquid (single cup sips) Honey thick liquid (single cup sips) Puree (mixture applesauce w/ barium pudding) Regular (shortbread cookie coated w/ barium pudding) Note poor tongue control with premature posterior escape of bolus seen consistently on all textures. Contrast escaped from the oral cavity and pooled in the valleculae and pyriforms prior to initiating the pharyngeal swallow. Mastication was mildly slowed, though with disorganized chewing pattern. Repetitive tongue pumping also noted, contributing to spillage. Trace lingual residue subsequently cleared. Pharyngeal swallow trigger was significantly delayed, initiated as the bolus head reached the pyriforms. No evidence of nasopharyngeal reflux. Partial laryngeal elevation with partial epiglottic inversion and incomplete laryngeal vestibular closure. There was silent aspiration on trial of thin consistency. A trace amount of contrast entered the laryngeal vestibule and passed below the vocal folds with no spontaneous protective reflex. There was flash penetration seen with trials of nectar thick liquid. A trace amount of contrast entered the airway above the vocal folds, and immediately and spontaneously cleared during the swallow with no evidence of subsequent aspiration. No aspiration or penetration seen on other consistencies, honey thick, puree, or regular solid, though increased pharyngeal retention was noted. There was significant pooling of contrast in the valleculae and pyriforms (50% of bolus), reduced, but not entirely cleared with multiple dry swallows, for which patient was verbally cued. The following compensatory strategies have not been used until today's study, but when employed, improved swallowing function: Hammett-thick Liquid eliminated Aspiration Honey-thick Liquid eliminated Penetration, Aspiration Honey-thick Liquid increased Pharyngeal Residue Additional Swallow(s) per Bolus decreased Pharyngeal Residue Liquid Intake Recommendation: Hammett Thick Liquid Intake Strategies: Small Sips, No Straws, Double Swallow Dietary Recommendations: Chopped/Advanced (NDD3) Medication Administration: Crushed with Puree Please contact the pharmacy regarding appropriate crushable or liquid drug formulations that are available whenever modified delivery is recommended. Compensatory Strategies Recommended: Sitting Upright (90 deg), Double Swallow, No Straw, Small Bites and Sips, Alternate Liquids/Solids, Rate of Ingestion Change, Avoid Specific Foods Supervision during eating and or drinking: Direct Supervision (1:1) Recommended Treatments: Compens. Strategy Educat. Recommendation for Speech Therapy: Speech Therapy through Rehab Facility Text Comment: Intake Recommendations: Route: PO Diet Grade: Chopped/Advanced (NDD3) Liquid Consistencies: Hammett Post-Study Functional Oral Intake Scale (FOIS): 5- Total oral intake of multiple consistencies requiring special preparation This exam revealed moderate oropharyngeal dysphagia, with significant impairments of the oral phase, including poor bolus containment, maladaptive tongue pumping behavior, disorganized chewing, premature posterior spillage, and delayed pharyngeal swallow trigger. Partial laryngeal elevation and partial epiglottic inversion compromised airway protection. There was silent aspiration on thin liquid trial and flash penetration on trials of nectar thick liquids. Good oral clearance. Significant pooling in the valleculae and pyriforms, partially reduced with multiple dry swallows and liquid wash. Therapy Recommendations: Continue dysphagia treatment with ARCHITECTURAL DRAFTER at [facility] facility for patient education/training of compensatory strategies Recommend CHOPPED/ADVANCED (NDD3) solids for ease of mastication, moistened with thick sauces/gravies (at least nectar thick) to promote pharyngeal clearance; and NECTAR THICK liquids, pills CRUSHED in PUREE. Patient is able to feed himself independently, but would benefit from close monitoring to ensure tolerance and provide cues as needed for feeding strategies. Recommend feeding precautions to maximize safety: -upright position during PO intake and for at least 30 minutes afterwards -one small sip at a time -avoid ?chugging? liquids -avoid the use of straws -take one bite at a time and chew well -dry swallow(s) between bites/sips to clear pharyngeal residue -alternate solids and liquids -frequent oral care Therapy Recommendations: Follow-up with ARCHITECTURAL DRAFTER at [facility] facility for patient education/training of compensatory strategies The following compensatory strategies and/or therapeutic exercises will be part of the upcoming therapy/management plan: Hammett-thick Liquid Additional Swallow(s) per Bolus Statistics Teacher Goals: ? The patient will tolerate the least restrictive diet with a safe/efficient swallow to maintain adequate nutrition and hydration. ? The patient and/or family will participate in further education for swallowing goals. Short Term Goals: ? Diet - The patient will tolerate a modified dysphagia diet with nectar thick liquids without signs or symptoms of penetration/aspiration 100% of the time. - The patient will participate in therapeutic PO trials with the ARCHITECTURAL DRAFTER. ? Guidelines - The patient will comply with/recall the following guidelines/strategies 100% of the time with minimal cuing: Hammett-thick Liquid, Bolus Volume Change, Rate of Ingestion Change, Additional Swallow(s) per Bolus, Effortful Swallow (used during PO intake), No Straws. ? Education - The patient, family, caregiver, nurse will verbalize/demonstrate understanding of the results of this evaluation, the above recommendations, and the swallowing guidelines. Frequency/Duration: 4-6, or as deemed appropriate per ARCHITECTURAL DRAFTER at [facility] Date Range for Service Requested: Timeline to reassess: PRN Clinician - Supplemental, Miscellaneous Communication: It is important to note MBSS objective studies are snapshots in time and Patient function might vary with factors such as time of day or concomitant medical conditions. For this reason, the final treatment plan for this patient should rest with their medical care team. Additional recommendations should be considered with the totality of the Patient in mind. Thank for the opportunity to participate in the care of this patient. If you have any questions about the content of this report, please contact the [facility] at [facility]. Education: Education regarding findings from today's study and plans for therapy were provided to Patient and family/caregiver through Verbal Instruction. Understanding was expressed by the Patient and family/caregiver. Scrum Master Clinician/Clinical Fellow: No Supervisory Statement: N/A Speech Language Pathologist: Ramandeep Piper M.A., CCC-ARCHITECTURAL DRAFTER
== END 2025-03-26 13:31 | disposition home or self-care (01) ==
LOC: HO.XRAY 13:30
PROVIDERS: Visit Provider Nurse Practitioner
DX: R13.10 Dysphagia, unspecified (principal)
CPT/HCPCS: 74230; 92611

== ENCOUNTER → 2025-03-26 13:33 | Outpatient (BNV) | payer MEDICARE, SELFPAY | PROVIDERS: Visit Provider Radiology Diagnostic Radiology | DX: R13.10 Dysphagia, unspecified (principal) | CPT/HCPCS: 74230 ==

== ENCOUNTER 2025-04-25 13:45 | Outpatient (AMB) | payer MEDICARE, SELFPAY ==
[2025-04-25 13:52] VITALS: BP 102/64; PULSE 60; BMI 19.9
--- NOTE | 2025-04-25 13:52 | MHC.OFFVIS ---
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: Lithographic Plate Maker Present Accompanied by: Self / Same As Patient Allergies No Known Allergies Allergy (Verified 04/25/25 14:00) Medication List - Last Reconciled 04/25/25 by Rashawn Sesay NP acetaminophen 650 mg PO Q4H PRN alendronate 70 mg PO QWEEK apixaban (Eliquis) 2.5 mg PO BID lactulose 10 grams PO DAILY PRN lisinopril 20 mg PO DAILY metoprolol succinate ER 25 mg PO DAILY pseudoephedrine-guaifenesin 30-100 mg/5 mL 10 mL PO Q4-6H PRN simvastatin 20 mg PO DAILY tramadol mg PO HPI Comments Details: This is an 89-year-old male patient coming in for a follow-up visit, accompanied [facility] staff [facility] Patient with a history of chronic AFib, hypertension, hyperlipidemia, and congestive heart failure. Patient was previously in the hospital for acute respiratory failure due to pneumonia and was noted to be in heart failure with an EF between 35-40%. Patient underwent another echo and is here to review the results for this. Patient is reporting feeling well overall without any reports of distress or complaints from nursing staff. Patient denies any symptoms of exertional chest pain, shortness of breath, palpitations, dizziness, orthopnea, PND, leg edema, presyncope or syncope. Patient is reporting compliance with all his medications. 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 Prostate cancer Macular degeneration Hyperlipidemia Osteoporosis Hypertension Atrial fibrillation with RVR Social History Household Members: Other Household Members Other:: [facility] Alcohol intake: current Patient Tobacco Use Status: Former Tobacco user Second Hand Smoke Exposure: No service: Yes Review of Systems Const Denies daytime sleepiness, Denies difficulty sleeping, Denies snoring, Denies stops breathing during sleep and Denies weakness Card Denies chest pain, Denies rapid heart rate, Denies irregular heart rhythm, Denies claudication, Denies leg edema, Denies lightheadedness, Denies palpitations, Denies dyspnea, Denies dyspnea on exertion, Denies orthopnea, Denies paroxysmal nocturnal dyspnea and Denies slow heart rate Resp Denies cough, Denies dyspnea, Denies dyspnea on exertion and Denies snoring GI Reports no additional complaints, Denies hematochezia, Denies change in stool character and Denies dyspepsia Musc Denies abnormal gait, Denies muscle weakness and Denies numbness Neuro Denies abnormal gait, Denies numbness and Denies weakness Endo Denies palpitations Physical Exam Vital Signs: Last Vital Signs Pulse 60 04/25/25 13:52 BP 102/64 04/25/25 13:52 BMI result Body Mass Index 19.9 Const General: cooperative, comfortable and no acute distress Orientation/consciousness: patient oriented x3 HEENT Head: Yes normal to inspection Neck Neck: Yes normal visual inspection, Yes trachea midline and Yes supple Chest Chest palpation & inspection: normal inspection of the chest Resp Effort & Inspection: normal respiratory effort Auscultation: clear to auscultation bilaterally, no crackles, no rales, no rhonchi and no wheezes Cardio Jugular venous distension: no JVD Palpation: normal PMI Rate: regular rate Rhythm: regular rhythm Heart sounds: S1 normal heart sound present, S2 normal heart sound present, no click, no gallops, no murmurs and no rubs Peripheral pulses: Peripheral pulses 2+ throughout GI Inspection: Yes normal to inspection Palpation (GI): Soft to palpation Auscultation: normal bowel sounds Skin General skin exam: no rashes or lesions noted Neuro General: patient oriented x3 Extrem General: Yes normal to inspection, No no pedal edema and No calf tenderness Psych Appearance: grossly normal Mental Status: mental status grossly normal Speech and movement: Normal speech and movement present Assessment & Plan Assessment & Plan (1) New onset of congestive heart failure: Code(s): I50.9 - Heart failure, unspecified Category: Medical Plan: 03/19/2025-echo study showed a mildly improved LV systolic function with an ejection fraction between 40-45% with moderately reduced RV systolic function, severe biatrial enlargement, mild aortic and mitral regurgitation, and mildly dilated ascending aorta. Clinically stable and euvolemic. Discussed in detail signs and symptoms of heart failure to watch for. Advised low-salt diet, daily weight monitoring, and fluid restriction between 1.5-2 L daily. Discussed about doing a stress test for checking for ischemic disease however, patient is wanting to wait on this. At this point, the plan is to repeat another echo in about 6 months. (2) Chronic a-fib: Code(s): I48.20 - Chronic atrial fibrillation, unspecified Category: Medical Plan: Chronic history of AFib. Continue Eliquis for full anticoagulation therapy. Denies any recent falls or signs of bleeding. Continue metoprolol therapy for rate control approach. (3) Hypertension: Code(s): I10 - Essential (primary) hypertension Category: Medical Plan: Blood pressure on the low-normal. Continue current regimen. Ideally, blood pressure goal less than 130/80. (4) Hyperlipidemia: Code(s): E78.5 - Hyperlipidemia, unspecified Category: Medical Plan: Continue statin therapy. Advised heart healthy diet, regular exercise as tolerated, and med compliance. Follow up in 6 months. In the interim, patient will call the office with any concerns or change in symptoms. This note was generated using voice recognition software. While every effort has been made to ensure accuracy and proper instructor knitting, there may be occasional errors that could affect the content or meaning of the described symptoms. Orders: Orders CA echo transthoracic complete 5 Months I50.9 - Heart failure, unspecified Coding Level of Care Code Est Pt Level 4 (78886) Complex EM visit Add On G2211 Diagnoses New onset of congestive heart failure I50.9 Chronic a-fib I48.20 Hypertension I10 Hyperlipidemia E78.5 Time Spent (min) 34 Comment Time spent in reviewing the chart, test results, assessment, counseling and documentation.
--- OUTSIDE RECORDS SUMMARY | 2025-04-25 14:38 | XMS_ITS | Clinical Summary ---
Author Organization [facility] Address [address] [place] [address] Care Team Providers Care Annual Greenhouse Manager Name Role Phone Unavailable Primary Care Provider [...] Units by mouth Once per day. Active Social History Tobacco Use Types Packs/Day Years [...] Description 05/01/2025 10:30 AM EDT Office Visit [facility] [address] [place] [address] Fredy Soliz DMD [address] [place] [address] 05/08/2025 11:15 AM EDT Office Visit [facility] [address] [place] [address] Karla Sweeney Health Maintenance Due Date Last Done Comments [...] Procedure Name Priority Date/Time Associated Diagnosis Comments PROPHYLAXIS - ADULT Routine 01/15/2025 2 :30 PM EDT INTRAORAL - COMPLETE SERIES OF RADIOGRAPHIC IMAGES Routine 10/31/2024 11:00 AM EST COMPREHENSIVE ORAL EVALUATION - NEW OR ESTABLISHED PATIENT Routine 10/31/2024 11:00 AM EST from Last 3 Months or Most Recently Relevant to Health Maintenance
--- OUTSIDE RECORDS SUMMARY | 2025-04-25 14:39 | XMS_ITS | Patient Health Record ---
Author Organization [facility] Address [address] [place] [address] Support Name Relationship Address Phone RUBY HORVATH Guarantor Unknown [phone] Allergies No Known Allergies Reason For Referral [...] W/U Status Risk Notes Problem Essential hypertension (98384348) Essential hypertension (I10) Active confirmed Problem Persistent atrial fibrillation (231042491) Persistent atrial fibrillation (I48.19) Active confirmed Problem Hypercholesterol emia (E78.00) Active confirmed Plan Of Treatment No Information Insurance Providers Payer Name Payer Address Payer Phone Subscriber Number Group Number Insured Name Patient Relationship to Insured Coverage Start Date Coverage End Date [facility] [address] [place] [address] [id number] RUBY HORVATH Self - patient is the insured Safety [employer] [address] [address] [place] [address] [phone] [id number] RUBY HORVATH Self - patient is the insured Medical (General) History Medical History History ICD Code atrial fibrillation, hypertension, glauc dimas
--- OUTSIDE RECORDS SUMMARY | 2025-04-25 14:39 | XMS_ITS | Patient Health Record ---
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 Problem Benign hypertension (72849506) Benign hypertension (I10) Active confirmed Encounters Encounter Location Date Provider Diagnosis [facility] [address] [place] [id number] 07/13/2024 Ba De La Cruz [facility] [address] [phone] 07/13/2024 Ba De La Cruz Plan Of Treatment No Information Insurance Providers Payer Name Payer Address Payer Phone Subscriber Number Group Number Insured Name Patient Relationship to Insured Coverage Start Date Coverage End Date [address] [id number] Dennis Brown Self - patient is the insured Medical (General) History Medical History History ICD Code Acquired absence of other specified part s of digestive tract Z90.49 Benign hypertension I10 HLD (hyperlipidemia) E78.5 geophysical manager (current) use of anticoagulant s Z79.01 Low back pain, unspecified M54.50 Other specified postprocedural states Z9 8.890 Atrial fibrillation 427.31
== END 2025-04-25 14:50 | disposition home or self-care (01) ==
LOC: HO.HCS 13:46
PROVIDERS: PCP Internal Medicine Medical Oncology
DX: I50.9 Heart failure, unspecified (principal); I48.20 Chronic atrial fibrillation, unspecified; I10 Essential (primary) hypertension; E78.5 Hyperlipidemia, unspecified
CPT/HCPCS: 99214; G2211

== ENCOUNTER → 2025-04-25 13:45 | Outpatient (BNVA) | payer MEDICARE, SELFPAY | PROVIDERS: PCP Internal Medicine Medical Oncology | DX: I48.20 Chronic atrial fibrillation, unspecified (principal); I11.0 Hypertensive heart disease with heart failure; I50.9 Heart failure, unspecified; E78.5 Hyperlipidemia, unspecified | CPT/HCPCS: 99212 ==

== ENCOUNTER 2025-05-08 06:37 | Outpatient (REF) | payer MEDICARE, SELFPAY ==
--- OUTSIDE RECORDS SUMMARY | 2024-10-25 06:28 | XMS_ITS | Encounter Summary ---
Author Name [facility] [place] Organization [facility] [place] [facility] [place] Address [address] [place] [address] Care Team Providers Care Senior Warehouse Clerk Name Role Phone CURT DUMONT Primary Care Provider Unavailabl e SHANTELL PANDEY Primary Care Provider Unavailabl e Insurance Providers: All historical and current Section Date Range: From patient's date of to the date document was created. This section includes the names of all active insurance providers for the patient. Insurance Provider Type of Coverage Plan Name Start of Policy Coverage End of Policy Coverage Group Number Member ID Insurance Provider's Telephone Number Policy Dawn's Name Patient's Relationship to Policy Dawn [place]BS [place] MEDICARE SUPPLEMEN BRIANNA MEDEX SAPPH SEAN H & V Aug 12, 2023 [id number] FRED HORVATH PATIENT BCBS OF [facility] MEDICARE SUPPLEMEN BRIANNA MEDEX SAPPH SEAN H AND Aug 12, 2023 [id number] FRED HORVATH PATIENT BCBS OF [facility] MEDICARE SUPPLEMEN BRIANNA MEDEX SAPPH SEAN H AND Aug 12, 2023 [id number] FRED HORVATH PATIENT MEDICARE (WNR) MEDICARE (M) PART A Dec 11, 2002 PART A [id number] FRED HORVATH PATIENT MEDICARE (WNR) MEDICARE (M) PART A Dec 11, 2002 PART A [id number] FRED HORVATH PATIENT MEDICARE (WNR) MEDICARE (M) PART B Dec 11, 2002 PART B [id number] FRED HORVATH PATIENT MEDICARE (WNR) MEDICARE (M) PART A Dec 11, 2002 PART A [id number] FRED HORVATH PATIENT Selected Encounter This section includes the information on record at [place] for the Encounter. Date/Time Encounter Type Encounter Description Reason Provider Source Oct 25, 2024 10:28 AM [facility] OL DIG ASSMT&MGMT 5-10 CLINICAL PHARMACY ICD-10-CM Z04.89 Encounter for examination and observation for oth reasons BHARAT SHEPPARD E Encounter Template Text not used by [place] Assessments - Encounter Diagnoses This section includes the primary and secondary diagnoses documented for the Encounter. Date/Time Primary/Secondary Diagnosis Diagnosis Name Provider Source Oct 25, 2024 10:40 AM PRIMARY Encounter for examination and observation for oth reasons BHARAT SHEPPARD [facility] Plan of Treatment: Future Appointments (+ 6 months) and Future Tests (+/- 45 days) The Plan of Treatment section includes future care activities for the patient from all [place] treatmentfacilities. This section includes future appointments and future orders which are active, pending or scheduled. Future Appointments This section includes appointments that were scheduled to occur 6 months from the date of the Encounter, up to a maximum of 20 appointments. The data comes from all [place] treatment facilities. Appointment Date/Time Appointment Type Appointme nt Facility Name Oct 30, 2024 09:30 AM [facility] January 25, 2025 02:00 PM [facility] Apr 18, 2025 02:00 PM [facility] Advance Directives: All historical and current Section Date Range: From patient's date of to the date document was created. This section includes ALL of a patient's completed or amended [place] Advance and Rescinded Directives. The entries below indicate that a directive exists for the patient, but an actual copy is not included with this document. The data comes from all [place] facilities. Date Advance Directives Provider Source Mar 16, 2023 ADVANCE DIRECTIVE ADILIA ROBERTS VIMAL MIRI MAHARAJ [facility] Encounter Notes: All associated encounter notes This section contains the clinical notes associated to the Encounter. Date/Time Encounter Note(s) Provider Source Oct 25, 2024 10:28 AM PHARMACY MEDICATION MGT NOTE: LOCAL TITLE: PHARMACY ANTICOAGULATION NOTE STANDARD TITLE: PHARMACY MEDICATION MGT NOTE DATE OF NOTE: OCT 25, 2024@10:28 ENTRY DATE: OCT 25, 2024@10:28:37 AUTHOR: JOSÉ MIGUEL ANDERSON COSIGNER: URGENCY: STATUS: COMPLETED PHARMACY ANTICOAGULATION NOTE Has ADDENDA ANTICOAGULATION DOAC MONITORING NOTE SUBJECTIVE: Patient identified through the DOAC population Management Tool based on the following criteria: [ ] Dosing Issue [ ] Critical Drug Interaction [ ] Cancer Treatment [ ] Active NSAID [ ] Labs Overdue [ ] Prosthetic Valve Replacement [ ] Notable Lab Value [ X ] Overdue for Refill [ ] Other: Comments: Pt flagged for being overdue for refill. Rx last filled apixaban x90 days 02/13/24 OBJECTIVE: Indication for anticoagulation: [ X ] Atrial fibrilation [ ] Atrial flutter [ ] VTE (DVT or PE) [ ] Post-op DVT prophylaxis [ ] Other: Most recent lab values include the following: HGB: HGB Collection DT Specimen Test Name Result Units Ref Range 02/09/2024 13:09 BLOOD HGB 13.6 g/dL 12.8 - 17 PLT: WBC Collection DT Specimen Test Name Result Units Ref Range 02/09/2024 13:09 BLOOD WBC 7.62 K/cmm 4.50 - 11.00 Liver Function Tests No data available for: AST ALT ALKALINE PHOSPHATASE ALBUMIN BILIRUBIN, TOTAL LDH PROTEIN,TOTAL HEIGHT: WEIGHT: 144.6 lb [65.59 kg] (05/02/2024 09:59) BMI: BMI: CREATININE-EGFR 02/09/24 13:09 0.67 11/21/23 15:13 0.68 CRCL IBW: CrCl(est): <Not Found> mL/min (Creat:0.67 02/09/24) CRCL ACT: No Creat CRCL ADJ: <Not Found> ASSESSMENT: refill overdue Action required? [ X ] Yes [ ] No Comments: Will mail third refill reminder letter and alert PACT team. [place] has not filled apixaban since 02/13/24. unsure if is still receiving from [facility]. PLAN: [ ] No action required, dismiss flag [ X ] Will intervene: [ X ] Patient education via phone/letter [ ] Schedule phone/dvaj-aj-ngmp follow up [ ] Lab ordered [ ] Discontinue interacting medication [ ] Discontinue DOAC [ ] Change to alternative DOAC [ ] Change DOAC dose [ X ] Notify PCP [ ] Consult cardiology/hematology [ ] Other: Time spent: 5 min /juanita/ JOSÉ MIGUEL ANDERSON CPHT Clinical Toolman Signed: 10/25/2024 10:30 Receipt Acknowledged By: 10/25/2024 11:41 /es/ JOSE SERNA, RN REGISTERED NURSE 10/25/2024 10:40 /es/ Judy Sheppard, TristianD, [facility] Clinical Photographers' Model 10/25/2024 13:21 /es/ MATHEW MARIE MD PHYSICIAN 10/25/2024 ADDENDUM STATUS: COMPLETED Above case reviewed as entered by [facility] Digital Strategy Manager. Agree with current assessment and plan of care for this patient's anticoagulation management as noted. /juanita/ Judy Sheppard, TristianD, BCPS Clinical Photographers' Model Signed: 10/25/2024 10:40 10/25/2024 ADDENDUM STATUS: COMPLETED [place] is now residing at the [facility] and getting his medications at the facility. /juanita/ JOSE SERNA RN REGISTERED NURSE Signed: 10/25/2024 11:40 [facility]
--- OUTSIDE RECORDS SUMMARY | 2025-01-25 10:00 | XMS_ITS ---
Author Name [facility] [place] Organization [place] Address [address] [place] [address] Care Team Providers Care Certified Respiratory Therapist Name Role Phone CURT DUMONT Primary Care [...] Name Patient's Relationship to Policy [place] SUPPLEMEN BRIANNA MEDEX SAPPH SEAN H & V Aug 12, 2023 [id number] [phone] FRED HORVATH PATIENT BCBS OF [facility] MEDICARE SUPPLEMEN BRIANNA MEDEX SAPPH SEAN H AND Aug 12, 2023 [id number] [phone] FRED HORVATH PATIENT BCBS OF [facility] MEDICARE SUPPLEMEN BRIANNA MEDEX SAPPH SEAN H AND Aug 12, 2023 [id number] FRED HORVATH PATIENT MEDICARE (WNR) MEDICARE (M) PART A Dec 11, 2002 PART A [id number] FRED HORVATH PATIENT MEDICARE (WNR) MEDICARE (M) PART A Dec 11, 2002 PART A [id number] FRED HORVATH PATIENT MEDICARE (WNR) MEDICARE (M) PART B Dec 11, 2002 PART B [id number] FRDE HORVATH PATIENT MEDICARE (WNR) MEDICARE (M) PART A Dec 11, 2002 PART A [id number] FRED HORVATH PATIENT Selected Encounter This section includes the information on record at [place] for the Encounter. Date/Time Encounter Type Encounter Description Reason Provider Source January 25, 2025 02:00 PM HEARING AID REPAIR/MODIFYIN G AUDIOLOGY ICD-10-CM Z46.1 Encounter for fitting and adjustment of hearing aid ANTHONY LEBLANC [facility] Encounter Template Text not used by [place] Assessments - Encounter Diagnoses This section includes the primary and secondary diagnoses documented for the Encounter. Date/Time Primary/Secondary Diagnosis Diagnosis Name Provider Source January 25, 2025 02:27 PM PRIMARY Encounter for fitting and adjustment of hearing aid ANTHONY LEBLANC [facility] January 25, 2025 02:27 PM SECONDARY Sensorineural hearing loss, bilateral ANTHONY LEBLANC [facility] Plan of Treatment: Future Appointments (+ 6 months) and Future Tests (+/- 45 days) The Plan of Treatment section includes future care activities for the patient from all [place] treatmentfacilities. This section includes future appointments and future orders which are active, pending or scheduled. Future Appointments This section includes appointments that were scheduled to occur 6 months from the date of the Encounter, up to a maximum of 20 appointments. The data comes from all [place] treatment facilities. Appointment Date/Time Appointment Type Appointme nt Facility Name Apr 18, 2025 02:00 PM [facility] May 15, 2025 01:00 PM [facility] Advance Directives: All historical and current Section Date Range: From patient's date of to the date document was created. This section includes ALL of a patient's completed or amended [place] Advance and Rescinded Directives. The entries below indicate that a directive exists for the patient, but an actual copy is not included with this document. The data comes from all [place] facilities. Date Advance Directives Provider Source Mar 16, 2023 ADVANCE DIRECTIVE ADILIA ROBERTS NO MIRI MAHARAJ [facility] Encounter Notes: All associated encounter notes This section contains the clinical notes associated to the Encounter. Date/Time Encounter Note(s) Provider Source January 25, 2025 09:41 AM AUDIOLOGY E & M NO TE: LOCAL TITLE: AUDIOLOGY CLINIC STANDARD TITLE: AUDIOLOGY E & M NOTE DATE OF NOTE: JANUARY 25, 2025@09:41 ENTRY DATE: JANUARY 25, 2025@09:41:04 AUTHOR: ANTHONY LEBLANC COSIGNER: URGENCY: STATUS: COMPLETED Dx CODE: Z46.1-Encounter for Fitting/Adjusting Hearing Aid(s); H90.3- Sensorineural Hearing Loss, Bilateral APPOINTMENT TYPE: Hearing Aid Check HISTORY/BACKGROUND: was seen for a hearing aid follow-up appointment, unaccompanied. He was fit on 06/29/22 with OTICON MORE 1 MINIRITE-Ts. He scheduled today's appointment noting the right hearing aid isn't working and doesn't stay in his ear. He notes that the right aid often falls out. HEARING AID CHECK: The hearing aids were cleaned and checked. Batteries were . Batteries, receivers, and wax guards were replaced. The right reicever had been very loose in the earmold, causing the earmold to spin and prevent the for inserting it properly. Made sure the assistant therapy aide was secure and it was was no longer spinning excessively. Fit of earmold is good when properly inserted. [place] was advised that he is due this year for updated hearing aids. Recommend embedded molds that won't spin and with canal locks for better retention. PLAN/RECOMMENDATION(S): 1. RTC placed for hearing re-evaluation to pursue new hearing aids. Patient Education Education provided on the following topics: Hearing aids Education provided to: P Response to Education: VU Waterman Patient P Family F Significant Other SO Verbalizes Understanding VU Returns Demonstration RD Performs Independently PI Lacks Comprehension LC Refused Education RE Not Applicable NA /juanita/ CHACORTA BHAT, CCC-A STAFF EDUCATION OFFICER Signed: 01/25/2025 17:06 ANTHONY LEBLANC [facility]
--- OUTSIDE RECORDS SUMMARY | 2025-04-18 10:00 | XMS_ITS ---
Author Name [facility] Organization [facility] [place] Address [address] [place] [address] Care Team Providers Care Counter Clerk Name Role Phone CURT DUMONT Primary [...] Name Patient's Relationship to Policy Dawn [place] MED[place] SUPPLEMEN BRIANNA MEDEX SAPPH SEAN H & V Aug 12, 2023 [id number] FRED HORVATH PATIENT BCBS OF [facility] MEDICARE SUPPLEMEN BRIANNA MEDEX SAPPH SEAN H AND Aug 12, 2023 [id number] FRED HORVATH PATIENT BCBS OF [facility] MEDICARE SUPPLEMEN BRIANNA MEDEX SAPPH SEAN H AND Aug 12, 2023 [id number] [phone] FRED HORVATH PATIENT MEDICARE (WNR) MEDICARE (M) PART A Dec 11, 2002 PART A [id number] FRED HORVATH PATIENT MEDICARE (WNR) MEDICARE (M) PART A Dec 11, 2002 PART A [id number] [phone] FRED HORVATH PATIENT MEDICARE (WNR) MEDICARE (M) PART B Dec 11, 2002 PART B [id number] FRED HORVATH PATIENT MEDICARE (WNR) MEDICARE (M) PART A Dec 11, 2002 PART A [id number] FRED HORVATH PATIENT Selected Encounter This section includes the information on record at [place] for the Encounter. Date/Time Encounter Type Encounter Description Reason Provider Source Apr 18, 2025 02:00 PM HEARING AID XM[facility]SL[facility] ICD-10-CM H90.3 Sensorineural hearing loss, bilateral CAMINITI,ZEE E IHE Encounter Template Text not used by [facility] Assessments - Encounter Diagnoses This section includes the primary and secondary diagnoses documented for the Encounter. Date/Time Primary/Secondary Diagnosis Diagnosis Name Provider Source Apr 18, 2025 02:35 PM PRIMARY Sensorineural hearing loss, bilateral CAMINITI,ZEE E [facility] Plan of Treatment: Future Appointments (+ 6 months) and Future Tests (+/- 45 days) The Plan of Treatment section includes future care activities for the patient from all [place] treatmentfacilities. This section includes future appointments and future orders which are active, pending or scheduled. Future Appointments This section includes appointments that were scheduled to occur 6 months from the date of the Encounter, up to a maximum of 20 appointments. The data comes from all [place] treatment facilities. Appointment Date/Time Appointment Type Appointme nt Facility Name May 15, 2025 01:00 PM AMBULATORY - REHAB MEDICIN E [facility] Advance Directives: All historical and current Section Date Range: From patient's date of to the date document was created. This section includes ALL of a patient's completed or amended [place] Advance and Rescinded Directives. The entries below indicate that a directive exists for the patient, but an actual copy is not included with this document. The data comes from all [place] facilities. Date Advance Directives Provider Source Mar 16, 2023 ADVANCE DIRECTIVE ADILIA ROBERTS NO [facility] Encounter Notes: All associated encounter notes This section contains the clinical notes associated to the Encounter. Date/Time Encounter Note(s) Provider Source Apr 18, 2025 07:36 AM AUDIOLOGY E & M NO TE: LOCAL TITLE: AUDIOLOGY CLINIC STANDARD TITLE: AUDIOLOGY E & M NOTE DATE OF NOTE: APR 18, 2025@07:36 ENTRY DATE: APR 18, 2025@07:36:33 AUTHOR: ZEE TREADWELL COSIGNER: URGENCY: STATUS: COMPLETED AUDIOLOGY CLINIC Has ADDENDA was seen 04-18-25 for a hearing re-evaluation. Hearing was last evaluated in 2021 in [place]. He currently uses binaural Oticon RICs, issued in 2021. He notes the right did not fit well. He reports no otologic changes, noting 'minimal' tinnitus and denying vertigo. He states that hearing may have declined. Results are as follow: Otoscopy is WNL for both ears. 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 Word recognition scores were poor with 60% correct for the right ear and 48% correct for the left ear for recorded speech presented at 90/95 dB HL (masked). Type As tympanograms were obtained bilaterally (reduced eardrum compliance). Results obtained today are considered overall stable in comparison to those from 2021. was counseled on today's test results. Given the age and technology of 's current amplification, he is considered eligible for new hearing aids. Binaural rechargeable RICs are recommended and agrees. With his verbal consent, ear impressions were taken without incident. He states he does not have a pacemaker and measured a 3. RTC placed for the fitting. /Fidel Milligan, [facility] STAFF MUSIC RESEARCHER Signed: 04/18/2025 14:50 05/06/2025 ADDENDUM STATUS: COMPLETED Hearing aids received and certified, upcoming appointment scheduled on 05/15/2025. /jordan WITT [facility] Health Retail Leader Signed: 05/06/2025 07:53 [facility]
--- OUTSIDE RECORDS SUMMARY | 2025-05-08 01:38 | XMS_ITS | Continuity of Care Document ---
Author Name [facility] Organization [facility] Care Team Providers Care Tipple Tender Name Role Phone [facility] Unavailable Unavailable Problems Combined list of problems from Department of Defense and [facility] Affairs facilities. It does not include entries [...] By: JULIO LAGUNA Comment: TDAP Vaccine 02/28/13 [facility] AF - Atrial fibrillation Active Condition [place] ([facility]) Atrial fibrillation and flutter Active Condition [facility] Benign essential hypertension Active Condition [place] ([facility]) Benign essential hypertension (SNOMED CT 0216863) Active Condition [facility] Cancer, prostate, primary Active Condition [facility] History of appendicectomy Active Condition [place] ([facility]) History of colonoscopy Active Condition Dec 22, 2020 Entered By: KIT CAMARILLO Comment: 11/2011 diverticulosisApr 2020 Entered By: KIT CAMARILLO Comment: due 11/2021 [facility] History of knee surgery Active Condition [place] ([facility]) History of vertebral fracture Active Condition [place] ([facility]) HLD - Hyperlipidaemia Active Condition [place] ([facility]) Hyperlipidemia (SNOMED CT 28026675) Active Condition [facility] Long-term current use of anticoagulant Active Condition [facility] Prostate cancer (SNOMED CT 284661275) Active Condition [facility] Prostate specific antigen abnormal Active Condition Mar 13 4 Entered By: KIT CAMARILLO Comment: patient refuses urology evaluationJul 2013 Entered By: KIT CAMARILLO Comment: psa 4.28- 05/2013 [facility] Hypertension Inactive Condition 12/28/2007 [facility] Diagnosis: ICD-10-CM H90.3 Sensorineural hearing loss, bilateral Active Diagnosis [facility] Diagnosis: ICD-10-CM Z46.1 Encounter for fitting and adjustment of hearing aid Active Diagnosis [facility] Diagnosis: ICD-10-CM Z04.89 Encounter for examination and observation for oth reasons Active Diagnosis [facility] Diagnosis: ICD-10-CM L89.899 Pressure ulcer of other site, unspecified stage Active Diagnosis [place] ([facility]) Diagnosis: ICD-10-CM I10 Essential (primary) hypertension Active Diagnosis [place] ([facility]) Diagnosis: ICD-10-CM I48.91 Unspecified atrial fibrillation Active Diagnosis [place] ([facility]) Diagnosis: ICD-10-CM Z51.81 Encounter for therapeutic drug level monitoring Active Diagnosis [facility] ([facility]) Diagnosis: ICD-10-CM M54.50 Low back pain, unspecified Active Diagnosis [place] ([facility]) Diagnosis: ICD-10-CM Z79.01 skilled nursing (current) use of anticoagulants Active Diagnosis [facility] Medications Combined list of outpatient medications from Department of Defense and [facility] Affairs facilities.Medications provided include 1) outpatient medications from the last 15 months, and 2) patient-reported medications. Medication Details Route Status Patient Instructions Prescription Expires Prescription Number Last Dispense Date Ordering Provider Order Date Order Qty Source APIXABAN 5MG TAB TAKE ONE TABLET BY MOUTH EVERY 12 HOURS ORAL DISCONT INUED BY SUDHA Avalos 11/21/2024 [id number] LILI MARIE LISA Miller 2023 180 [place] ([facility]) APIXABAN 5MG TAB TAKE ONE TABLET BY MOUTH EVERY 12 HOURS ORAL ACTIVE LILI MARIE LISA Miller 2024 [place] ([facility]) CHOLECALCIF KRZYSZTOF 25MCG (1,000UNIT) TAB TAKE ONE TABLET BY MOUTH EVERY DAY ORAL ACTIVE Scarlet CAMARILLO RISHNA 2011 [facility] DOC[facility]ATE NA 100MG CAP TAKE ONE CAPSULE BY MOUTH TWICE DAILY NEEDED FOR CONSTIPA TION TO SOFTEN STOOL ORAL 02/09/2025 [id number] LILI MARIE 2023 200 [place] ([facility]) LISINOPRIL 20MG TAB TAKE ONE TABLET BY MOUTH ONCE DAILY TO CONTROL BLOOD PRESSURE ORAL 11/21/2024 [id number] LILI MARIE 2023 90 [place] ([facility]) METOPROLOL SUCCINATE 25MG TAB,SA TAKE ONE TABLET BY MOUTH ONCE DAILY FOR BLOOD PRESSURE /HEART ORAL 02/09/2025 [id number] LILI MARIE 2023 90 [place] ([facility]) MULTIVIT/OP HTH AREDS2/LUTE IN/ZEAXANTH IN CAP/TAB TAKE 1 CAPSULE BY MOUTH TWICE DAILY FOR VITAMIN SUPPLEME NTATION IN THE MORNING AND EVENING, WITH FOOD ORAL 02/09/2025 [id number] 4 LILI MARIE 2023 120 [place] ([facility]) SIMVASTATIN 80MG TAB TAKE ONE-HALF TABLET BY MOUTH ONCE DAILY FOR CHOLESTE ROL ORAL 11/21/2024 [id number] 4 LILI MARIE 2023 45 [place] ([facility]) SODIUM FLUORIDE 1.1% GEL,DENT USE A PEA SIZED AMOUNT FOR DENTAL USE EVERY DAY FOR PREVENTI ON OF TOOTH PLAQUE DENTAL 05/18/2024 [id number] CARI,SH RIDEMERALDI 2022 56 KEVAN GRANADOS [facility] SODIUM FLUORIDE 1.1% TOOTHPASTE BRUSH SMALL AMOUNT TO TEETH ONCE DAILY FOR TOOTH DECAY PREVENTI ON DENTAL ACTIVE 02/20/2026 [id number] 5 LILI MARIEUGHN Paul 2024 51 [place] ([facility]) SODIUM FLUORIDE 1.1% TOOTHPASTE BRUSH SMALL AMOUNT TO TEETH ONCE DAILY FOR TOOTH DECAY PREVENTI ON DENTAL DISCONT INUED 02/09/2025 [id number] 5 CYNTHIALILI LISA Miller 2023 51 [place] ([facility]) Allergies, Adverse Reactions, Alerts Combined list of allergies from Department of Defense and [facility] Affairs facilities. It does not include entries that were removed or entered in error. Substance Category Reaction Severity Reaction type Status Date Reported Comments Source POLLEN Propensity to adverse reaction (finding) [place] TERING EYES active 12/16/2003 [facility] Immunizations Combined list of available immunizations from the Department of Defense and Veterans Affairs facilities. 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 Status Comments Source COVID-19 (MODERNA), MRNA, LNP-S, PF, 50 MCG/0.5 ML (AGES 12+ YEARS) 2022 312 complet ed HISTORICA L INFORMATI ON - FROM PATIENT'S WRITTEN RECORD, [facility] INFLUENZA, HIGH-DOSE, QUADRIVALENT 2022 197 complet ed HISTORICA L INFORMATI ON - FROM PATIENT'S WRITTEN RECORD, [facility] COVID-19 (PFIZER), MRNA, LNP-S, BIVALENT, PF, 30 MCG/0.3 ML DOSE 2022 300 complet ed HISTORICA L INFORMATI ON - FROM PATIENT'S WRITTEN RECORD, [facility] COVID-19 (PFIZER), MRNA, LNP-S, BIVALENT, PF, 30 MCG/0.3 ML DOSE 2021 300 complet ed HISTORICA L INFORMATI ON - FROM PATIENT'S WRITTEN RECORD, [facility] INFLUENZA, UNSPECIFIED FORMULATION 2021 88 complet ed HISTORICA L INFORMATI ON - FROM OTHER PROVIDER, received flu vaccine via Outside pcp at [facility] TD(ADULT) UNSPECIFIED FORMULATION 2021 139 complet ed HISTORICA L INFORMATI ON - FROM OTHER PROVIDER, received flu vaccine via Outside pcp at [facility]/Ep ic documenta tion [facility] INFLUENZA, UNSPECIFIED FORMULATION 2020 88 complet ed [facility] COVID-19 (PFIZER), MRNA, LNP-S, PF, 30 MCG/0.3 ML DOSE 2 2020 208 complet ed PFR; [id number]; 1 [facility] COVID-19 (PFIZER), MRNA, LNP-S, PF, 30 MCG/0.3 ML DOSE 1 2020 208 complet ed PFR; [id number]; 1 [facility] INFLUENZA, INJECTABLE, QUADRIVALENT, PRESERVATIVE FREE 2019 150 complet ed [facility] ZOSTER RECOMBINANT 2 2019 187 complet ed [facility] INFLUENZA, TRIVALENT, ADJUVANTED 2018 168 complet ed Site: Right [facility] ZOSTER RECOMBINANT 1 2018 187 complet ed [facility] INFLUENZA, SEASONAL, INJECTABLE 2017 141 complet ed Site: Left [facility] PNEUMOCOCCAL CONJUGATE PCV 13 2017 133 complet ed [facility] INFLUENZA, SEASONAL, INJECTABLE 2016 141 complet ed Site: Right [facility] FLU,3 YRS (HISTORICAL) 2015 88 complet ed Site: Left [facility] FLU,3 YRS (HISTORICAL) 2014 88 complet ed Site: Left [facility] FLU,3 YRS (HISTORICAL) 2013 88 complet ed Site: Left [facility] FLU,3 YRS (HISTORICAL) 2012 88 complet ed Site: Left [facility] DTAP, UNSPECIFIED FORMULATION 2012 107 complet ed Site: Left [facility] TDAP 2012 115 complet ed HISTORICA L INFORMATI ON - FROM PATIENT'S WRITTEN RECORD, [facility] VARICELLA 2011 21 complet ed [facility] FLU,3 YRS (HISTORICAL) 2011 88 complet ed Site: Left Deltoid [facility] PNEUMOCOCCAL POLYSACCHARID E PPV23 2011 33 complet ed HISTORICA L INFORMATI ON - FROM PATIENT'S WRITTEN RECORD, [facility] FLU,3 YRS (HISTORICAL) 2011 88 complet ed Site: Left Deltoid [facility] TD(ADULT) UNSPECIFIED FORMULATION 2010 139 complet ed Site: Left Deltoid [facility] FLU,3 YRS (HISTORICAL) 2009 88 complet ed Site: Left Deltoid [facility] NOVEL INFLUENZA-H1N 1-09, ALL FORMULATIONS 2009 128 complet ed [employer] [facility] FLU,3 YRS (HISTORICAL) 2008 88 complet ed Site: Right Deltoid [facility] FLU,3 YRS (HISTORICAL) 2007 88 complet ed Site: Left Deltoid [facility] FLU,3 YRS (HISTORICAL) 2006 88 complet ed Site: Left Deltoid [facility] FLU,3 YRS (HISTORICAL) 2005 MATT JARVIS 88 complet ed [facility] FLU,3 YRS (HISTORICAL) 2004 FLAKO FUNEZ AE 88 comple t ed [facility] FLU,3 YRS (HISTORICAL) 2003 SUMEET LARKIN 88 complet ed [facility] PNEUMOCOCCAL, UNSPECIFIED FORMULATION 2003 109 complet ed Site: Left Deltoid [facility] PNEUMOCOCCAL POLYSACCHARID E PPV23 2003 33 complet ed HISTORICA L INFORMATI ON - FROM PATIENT'S WRITTEN RECORD, [facility] FLU,3 YRS (HISTORICAL) 2000 88 complet ed [facility] FLU,3 YRS (HISTORICAL) 1998 88 complet ed [facility] Results Combined list of recent chemistry, [...] February 09, 2024 09:34 AM Reporting Lab: [place] [facility] [place] [address] [address] Performing Lab: [place] [facility] [address] [facility] [address] [facility]ITALUSE [facility] LIVER FUNCTION ALBUMIN [MASS/VOLU ME] IN SERUM OR PLASMA 3.7 g/dL 3.5 - 5.0 02/08 Specimen Type: SERUM No comment entered. Ordering Provider: SKYLER MARIE Report Released Date/Time: February 09, 2024 09:34 AM Reporting Lab: [facility]USE[address] [address] Performing Lab: [place] [facility] [address] [address] [facility] FUN[facility] ALKALINE PHOSPHATAS E [ENZYMATIC ACTIVITY/V OLUME] IN SERUM OR PLASMA 95 U/L 40 - 150 02/08 Specimen Type: SERUM No comment entered. Ordering Provider: SKYLER MARIE Report Released Date/Time: February 09, 2024 09:34 AM Reporting Lab: [place] [facility] [place] [address] [address] Performing Lab: [place] [facility] [place] [address] [address] [facility] ASPARTATE AMINOTRANS FERASE [ENZYMATIC ACTIVITY/V OLUME] IN SERUM OR PLASMA 19 U/L 5 - 34 02/08 Specimen Type: SERUM No comment entered. Ordering Provider: SKYLER MARIE Report Released Date/Time: February 09, 2024 09:34 AM Reporting Lab: [place] [facility] [place] [address] [address] Performing Lab: [place] [facility] [place] [place] [facility] [address] [facility] [address] [facility] FUNCTION ALANINE AMINOTRANS FERASE [ENZYMATIC ACTIVITY/V OLUME] IN SERUM OR PLASMA 17 U/L 02/08 Specimen Type: SERUM No comment entered. Ordering Provider: SKYLER MARIE Report Released Date/Time: February 09, 2024 09:34 AM Reporting Lab: [facility] [place] [place] [facility] [address] [facility] [address] Performing Lab: [place] [facility] [place] [facility] [address] [facility] [address] [facility]ITALRINFIRMARY LTAC HOSPITALN [facility] LIVER FUNCTION BILIRUBIN. TOTAL [MASS/VOLU ME] IN SERUM OR PLASMA 0.6 mg/dL 0.2 - 1.2 02/08 Specimen Type: SERUM No comment entered. Ordering Provider: SKYLER MARIE Report Released Date/Time: February 09, 2024 09:34 AM Reporting Lab: [facility] [place] [place] [address] [address] Performing Lab: [facility]ITALUSETS [address] [address] [facility]ITALRINFIRMARY LTAC HOSPITALN [facility]ITALUSE [facility] CBC LEUKOCYTES [#/VOLUME] IN BLOOD BY AUTOMATED COUNT 7.62 10*3/uL 4.50 - 11.00 02/08 Specimen Type: BLOOD No comment entered. Ordering Provider: SKYLER MARIE Report Released Date/Time: February 09, 2024 09:34 AM Reporting Lab: [facility] [place] [place] [facility] [address] [facility] [address] Performing Lab: [place] [facility] [facility]N [facility]ITALUSETS [address] [address] [facility]ITALRINF[facility] HOSPITALN [facility]ITALUSE [facility] CBC ERYTHROCYT ES [#/VOLUME] IN BLOOD BY AUTOMATED COUNT 4.34 10*6/uL 4.23 - 5.66 02/08 Specimen Type: BLOOD No comment entered. Ordering Provider: SKYLER MARIE Report Released Date/Time: February 09, 2024 09:34 AM Reporting Lab: [facility] [place] [facility] [address] [facility] [address] Performing Lab: [facility] [place] [facility] [address] [facility] [address] [facility] [place] [facility] CBC HEMOGLOBIN [MASS/VOLU ME] IN BLOOD 13.6 g/dL 12.8 - 17 02/08 Specimen Type: BLOOD No comment entered. Ordering Provider: SKYLER MARIE Report Released Date/Time: February 09, 2024 09:34 AM Reporting Lab: [facility] [facility] [address] [facility] [address] Performing Lab: [facility] [place] [facility] [address] [facility] [address] [facility] [place] [facility] CBC HEMATOCRIT [VOLUME FRACTION] OF BLOOD BY AUTOMATED COUNT 40.2 39.2 - 50.4 02/08 Specimen Type: BLOOD No comment entered. Ordering Provider: SKYLER MARIE Report Released Date/Time: February 09, 2024 09:34 AM Reporting Lab: [facility] [facility] [address] [facility] [address] Performing Lab: [facility] [place] [facility] [address] [facility] [address] [facility] [place] [facility] CBC MCV [ENTITIC VOLUME] BY AUTOMATED COUNT 92.6 fL 82 - 99 02/08 Specimen Type: BLOOD No comment entered. Ordering Provider: SKYLER MARIE Report Released Date/Time: February 09, 2024 09:34 AM Reporting Lab: [facility] [place] [facility] [address] [facility] [address] Performing Lab: [facility] [place] [facility] [address] [facility] [address] [facility] [place] [facility] CBC MCHC [MASS/VOLU ME] BY AUTOMATED COUNT 33.8 g/dL 30.8 - 35.1 02/08 Specimen Type: BLOOD No comment entered. Ordering Provider: SKYLER MARIE Report Released Date/Time: February 09, 2024 09:34 AM Reporting Lab: [facility] [place] [facility] [address] [facility] [address] Performing Lab: [facility] [place] [facility] [address] [facility] [address] [facility] [place] [facility] CBC PLATELETS [#/VOLUME] IN BLOOD BY AUTOMATED COUNT 267 10*3/uL 140 - 360 02/08 Specimen Type: BLOOD No comment entered. Ordering Provider: SKYLER MARIE Report Released Date/Time: February 09, 2024 09:34 AM Reporting Lab: [facility] [place] [facility] [address] [facility] [address] Performing Lab: [facility] [place] [address] [address] [place] [facility] [facility] CBC ERYTHROCYT E DISTRIBUTI ON WIDTH [RATIO] BY AUTOMATED COUNT 13.0 12.0 - 16.0 02/08 Specimen Type: BLOOD No comment entered. Ordering Provider: SKYLER MARIE Report Released Date/Time: February 09, 2024 09:34 AM Reporting Lab: [facility] [place] [address] [address] Performing Lab[facility] [facility] [address] [facility] [address] [facility] [place] [facility] CBC MCH [ENTITIC MASS] BY AUTOMATED COUNT 31.3 pg 26.2 - 32.6 02/08 Specimen Type: BLOOD No comment entered. Ordering Provider: SKYLER MARIE Report Released Date/Time: February 09, 2024 09:34 AM Reporting Lab: [facility] [facility] [address] [facility] [address] Performing Lab: [facility] [address] [address] [facility] [place] [facility] PT & INR (COUMADI N) INR IN PLATELET POOR PLASMA BY COAGULATIO N ASSAY 1.1 02/08 Specimen Type: PLASMA No comment entered. Ordering Provider: SKYLER MARIE Report Released Date/Time: February 09, 2024 09:34 AM Reporting Lab: [facility] [place] [facility] [address] [facility] [address] Performing Lab: [facility] [place] [facility] [address] [facility] [address] [facility] [place] [facility] PT & INR (COUMADI N) PROTHROMBI N TIME (PT) 12.7 s 10.0 - 13.1 02/08 Specimen Type: PLASMA No comment entered. Ordering Provider: SKYLER MARIE Report Released Date/Time: February 09, 2024 09:34 AM Reporting Lab: [facility] [place] [facility] [address] [facility] [address] Performing Lab: [facility] [place] [address] [address] [place] [facility] [place] [facility] LIPID PANEL, NON FASTING CHOLESTERO L [MASS/VOLU ME] IN SERUM OR PLASMA 116 mg/dL 02/08 Specimen Type: SERUM No comment entered. Ordering Provider: SKYLER MARIE Report Released Date/Time: February 09, 2024 09:35 AM Reporting Lab: [facility] [place] [place] [facility] [address] [facility] [address] Performing Lab: [facility] [place] [address] [address] [facility] [place] [facility] LIPID PANEL, NON FASTING TRIGLYCERI DE [MASS/VOLU ME] IN SERUM OR PLASMA 133 mg/dL 0 - 150 02/08 Specimen Type: SERUM No comment entered. Ordering Provider: SKYLER MARIE Report Released Date/Time: February 09, 2024 09:35 AM Reporting Lab: [facility] [place] [facility] [address] [facility] [address] Performing Lab: [facility] [place] [address] [address] [facility] [place] [facility] LIPID PANEL, NON FASTING CHOLESTERO L IN LDL [MASS/VOLU ME] IN SERUM OR PLASMA BY ROSA Fuller 51 mg/dL 0 - 129 02/08 Specimen Type: SERUM No comment entered. Ordering Provider: SKYLER MARIE Report Released Date/Time: February 09, 2024 09:35 AM Reporting Lab: [facility]ITALRBRYCE [facility]OSPITALTRN [facility]ITALUSEGOUVERNE[facility] [address] [facility] [address] Performing Lab: [facility]RL [facility]N [facility]USE[address] [address] [facility]ITALRL [facility]N [facility]OS[facility]ITALUSE [facility] LIPID PANEL, NON FASTING CHOLESTERO L.TOTAL/CH OLESTEROL IN HDL [MASS RATIO] IN SERUM OR PLASMA 3.1 02/08 Specimen Type: SERUM No comment entered. Ordering Provider: SKYLER MARIE Report Released Date/Time: February 09, 2024 09:35 AM Reporting Lab: [facility] [address] [address] Performing Lab: [facility]ITALRINFIRMARY LTAC HOSPITALN [facility]ITALUSE[address] [address] [facility]ITALUSE [facility] LIPID PANEL, NON FASTING CHOLESTERO L IN HDL [MASS/VOLU ME] IN SERUM OR PLASMA 38 mg/dL 40 - 60 02/08 L Specimen Type: SERUM No comment entered. Ordering Provider: SKYLER MARIE Report Released Date/Time: February 09, 2024 09:35 AM Reporting Lab: [facility]ITALRBRY[facility]ITALTRN [facility]USE[address] [address] Performing Lab: [facility]N [facility]USE[address] [address] [facility]ITALRINFIRMARY LTAC HOSPITALN [facility]USE [facility] BASIC METABOLI C PANEL (non-fas ting) UREA NITROGEN [MASS/VOLU ME] IN SERUM OR PLASMA 12 mg/dL 7 - 25 02/08 Specimen Type: SERUM No comment entered. Ordering Provider: SKYLER MARIE Report Released Date/Time: February 09, 2024 09:35 AM Reporting Lab: [facility]ITALRBRY[facility]ITALTRN [facility]USE[address] [address] Performing Lab: [facility]ITALRL TRN [facility] [address] [facility] [address] [facility]ITALRINFIRMARY LTAC HOSPITALN [facility] BASIC METABOLI C PANEL (non-fas ting) GLUCOSE [MASS/VOLU ME] IN SERUM OR PLASMA 107 mg/dL 65 - 100 02/08 H Specimen Type: SERUM No comment entered. Ordering Provider: SKYLER MARIE Report Released Date/Time: February 09, 2024 09:35 AM Reporting Lab: [facility]PITALRINFIRMARY LTAC HOSPITALN [address] [address] Performing Lab: [address] [address] [facility] BASIC METABOLI C PANEL (non-fas ting) SODIUM [MOLES/VOL UME] IN SERUM OR PLASMA 135 mmol/L 135 - 145 02/08 Specimen Type: SERUM No comment entered. Ordering Provider: SKYLER MARIE Report Released Date/Time: February 09, 2024 09:35 AM Reporting Lab: [facility] [address] Performing Lab: [facility] [address] [address] [facility] BASIC METABOLI C PANEL (non-fas ting) POTASSIUM [MOLES/VOL UME] IN SERUM OR PLASMA 4.3 mmol/L 3.5 - 5.0 02/08 Specimen Type: SERUM No comment entered. Ordering Provider: SKYLER MARIE Report Released Date/Time: February 09, 2024 09:35 AM Reporting Lab: [facility] [address] [address] Performing Lab: [facility] [address] [address] [facility] BASIC METABOLI C PANEL (non-fas ting) CHLORIDE [MOLES/VOL UME] IN SERUM OR PLASMA 103 mmol/L 100 - 110 02/08 Specimen Type: SERUM No comment entered. Ordering Provider: SKYLER MARIE Report Released Date/Time: February 09, 2024 09:35 AM Reporting Lab: [facility] [address] Performing Lab: [place] [facility] [address] [facility] BASIC METABOLI C PANEL (non-fas ting) CARBON DIOXIDE, TOTAL [MOLES/VOL UME] IN SERUM OR PLASMA 25 meq/L - 02/08 Specimen Type: SERUM No comment entered. Ordering Provider: SKYLER MAREI Report Released Date/Time: February 09, 2024 09:35 AM Reporting Lab: [facility] [address] [address] Performing Lab: [facility] [address] [address] [facility] BASIC METABOLI C PANEL (non-fas ting) CREATININE [MASS/VOLU ME] IN SERUM OR PLASMA 0.67 mg/dL 0.50 - 1.40 02/08 Specimen Type: SERUM No comment entered. Ordering Provider: SKYLER MARIE Report Released Date/Time: February 09, 2024 09:35 AM Reporting Lab: [facility] [address] [address] Performing Lab: [facility] [address] [facility] BASIC METABOLI C PANEL (non-fas ting) GLOMERULAR FILTRATION RATE/1.73 SQ M.PREDICTE D [VOLUME RATE/AREA] IN SERUM, PLASMA OR BLOOD BY CREATININE -BASED FORMULA (CKD-EPI 2020) >90mL/mi n 60 02/08 Specimen Type: SERUM No comment entered. Ordering Provider: SKYLER MARIE Report Released Date/Time: February 09, 2024 09:35 AM Reporting Lab: [facility] [address] [address] Performing Lab: [facility] [address] [facility] URINALYS IS COLOR OF URINE Light-Or iliana 11/20 Specimen Type: URINE Comment: If Glucose = >500 and Ketones are positive, please alert the Physician. Ordering Provider: SKYLER MARIE Report Released Date/Time: Nov 14, 2023 04:05 PM Reporting Lab: [facility] [address] Performing Lab: [facility] [address] [place] ([facility]) URINALYS IS APPEARANCE OF URINE Ex.Turbi d 11/20 Specimen Type: URINE Comment: If Glucose = >500 and Ketones are positive, please alert the Physician. Ordering Provider: SKYLER MARIE Report Released Date/Time: Nov 14, 2023 04:05 PM Reporting Lab: [facility] [address] Performing Lab: [facility] [address] [place] ([facility]) URINALYS IS GLUCOSE [MASS/VOLU ME] IN URINE NEGATIVE mg/dL 11/20 Specimen Type: URINE Comment: If Glucose = >500 and Ketones are positive, please alert the Physician. Ordering Provider: SKYLER MARIE Report Released Date/Time: Nov 14, 2023 04:05 PM Reporting Lab: [facility] [address] Performing Lab: [facility] [address] [place] [facility]) URINALYS IS KETONES [MASS/VOLU ME] IN URINE BY TEST STRIP NEGATIVE mg/dL 11/20 Specimen Type: URINE Comment: If Glucose = >500 and Ketones are positive, please alert the Physician. Ordering Provider: SKYLER MARIE Report Released Date/Time: Nov 14, 2023 04:05 PM Reporting Lab: [address] [address] Performing Lab: [address] [address] [place] [facility]) URINALYS IS ERYTHROCYT ES [PRESENCE] IN URINE SEDIMENT BY LIGHT MICROSCOPY NEGATIVE mg/dL 11/20 Specimen Type: URINE Comment: If Glucose = >500 and Ketones are positive, please alert the Physician. Ordering Provider: SKYLER MARIE Report Released Date/Time: Nov 14, 2023 04:05 PM Reporting Lab: [address] [address] Performing Lab: [address] [address] [place] [facility]) URINALYS IS PROTEIN [MASS/VOLU ME] IN URINE BY TEST STRIP NEGATIVE mg/dL 11/20 Specimen Type: URINE Comment: If Glucose = >500 and Ketones are positive, please alert the Physician. Ordering Provider: SKYLER MARIE Report Released Date/Time: Nov 14, 2023 04:05 PM Reporting Lab: [address] [address] Performing Lab: [address] [address] [place] ([facility]) URINALYS IS NITRITE [PRESENCE] IN URINE NEGATIVE mg/dL 11/20 Specimen Type: URINE Comment: If Glucose = >500 and Ketones are positive, please alert the Physician. Ordering Provider: SKYLER MARIE Report Released Date/Time: Nov 14, 2023 04:05 PM Reporting Lab: [address] [address] Performing Lab: [address] [address] [place] [facility]) URINALYS IS BILIRUBIN. TOTAL [PRESENCE] IN URINE NEGATIVE mg/dL 11/20 Specimen Type: URINE Comment: If Glucose = >500 and Ketones are positive, please alert the Physician. Ordering Provider: SKYLER MARIE Report Released Date/Time: Nov 14, 2023 04:05 PM Reporting Lab: [address] [address] Performing Lab: [address] [address] [place] [facility]) URINALYS IS SPECIFIC GRAVITY OF URINE BY REFRACTOME TRY 1.024 1.016 - 1.022 11/20 H Specimen Type: URINE Comment: If Glucose = >500 and Ketones are positive, please alert the Physician. Ordering Provider: SKYLER MARIE Report Released Date/Time: Nov 14, 2023 04:05 PM Reporting Lab: [address] [address] Performing Lab: [address] [address] [place] ([facility]) URINALYS IS PH OF URINE BY TEST STRIP 5.5 5.0 - 9.0 11/20 Specimen Type: URINE Comment: If Glucose = >500 and Ketones are positive, please alert the Physician. Ordering Provider: SKYLER MARIE Report Released Date/Time: Nov 14, 2023 04:05 PM Reporting Lab: [address] [address] Performing Lab: [address] [address] [place] [facility]) URINALYS IS UROBILINOG EN [MASS/VOLU ME] IN URINE BY TEST STRIP <2.0mg/d L <2.0 - 2.0 11/20 Specimen Type: URINE Comment: If Glucose = >500 and Ketones are positive, please alert the Physician. Ordering Provider: SKYLER MARIE Report Released Date/Time: Nov 14, 2023 04:05 PM Reporting Lab: [address] [address] Performing Lab: [facility] [address] [address] [place] [facility]) URINALYS IS LEUKOCYTE ESTERASE [PRESENCE] IN URINE BY TEST STRIP NEGATIVE 11/20 Specimen Type: URINE Comment: If Glucose = >500 and Ketones are positive, please alert the Physician. Ordering Provider: SKYLER MARIE Report Released Date/Time: Nov 14, 2023 04:05 PM Reporting Lab: [address] [address] Performing Lab: [address] [address] [place] [facility]) MICROALB UMIN CREATINI NE RATIO PANEL MICROALBUM IN/CREATIN INE [MASS RATIO] IN URINE 19.8 mg/g 0 - 29.9 11/20 Specimen Type: URINE No comment entered. Ordering Provider: SKYLER MARIE Report Released Date/Time: Nov 14, 2023 04:05 PM Reporting Lab: [facility] [address] [address] Performing Lab: [address] [address] [place] [facility]) MICROALB UMIN CREATINI NE RATIO PANEL MICROALBUM IN [MASS/VOLU ME] IN URINE 1.7 mg/dL 11/20 Specimen Type: URINE No comment entered. Ordering Provider: SKYLER MARIE Report Released Date/Time: Nov 14, 2023 04:05 PM Reporting Lab: [address] [address] Performing Lab: [address] [address] [place] [facility]) MICROALB UMIN CREATINI NE RATIO PANEL CREATININE [MASS/VOLU ME] IN URINE 85.93 mg/dL 11/20 Specimen Type: URINE No comment entered. Ordering Provider: SKYLER MARIE Report Released Date/Time: Nov 14, 2023 04:05 PM Reporting Lab: [facility] [address] [facility] [address] Performing Lab: [facility] [address] [facility] [address] [place] ([facility]) VITAMIN D (25-OH) 25-HYDROXY VITAMIN D3 [MASS/VOLU ME] IN SERUM OR PLASMA 28 ng/mL 20 - 50 11/20 Specimen Type: SERUM No comment entered. Ordering Provider: SKYLER MARIE Report Released Date/Time: Nov 14, 2023 04:05 PM Reporting Lab: [facility] [address] [address] Performing Lab: [address] [address] [place] [facility]) VITAMIN B12 COBALAMIN (VITAMIN B12) [MASS/VOLU ME] IN SERUM OR PLASMA 351 pg/mL 200 - 900 11/20 Specimen Type: SERUM No comment entered. Ordering Provider: SKYLER MARIE Report Released Date/Time: Nov 14, 2023 04:05 PM Reporting Lab: [address] [address] Performing Lab: [address] [address] [place] [facility]) TSH THYROTROPI N [UNITS/VOL UME] IN SERUM OR PLASMA 4.87 u[IU]/mL 0.35 - 5.00 11/20 Specimen Type: SERUM No comment entered. Ordering Provider: SKYLER MARIE Report Released Date/Time: Nov 14, 2023 04:05 PM Reporting Lab: [address] [address] Performing Lab: [address] [address] [place] [facility]) Encounters Combined list of: 1) Encounters from Department of Veterans Affairs facilities going backup to the last 18 months, not all VA inpatient encounters are included; 2) Encounters from the Department of Defense facilities going backup to 280 months. Location Location Details Encounter Type Encounter Number Reason For Visit Attending Provider ADM Date DC Date Status Disposition Source YUMIKO Montalvo ([facility]) OFFICE O/P EST HI 40 MIN [id number] Diagnos is: ICD-10- CM I10 Essenti al (primar y) hyperte JORDAN Pal 11/20 [place] ([facility]) [facility] QNHP OL DIG ASSMT&MGMT 5-10 [id number] Diagnos is: ICD-10- CM Z79.01 skilled nursing (curren t) use of anticoa ENMA Jurado 11/22 [facility] Out[facility] Encounter [id number] CARLOS RIGGINS 11/22 [facility] Encounter [id number] 11/22 [facility] Encounter [id number] ANASTACIA RAMIREZ 12/04 [facility] Encounter [id number] 12/05 [facility] Encounter [id number] 12/06 [facility] Encounter [id number] 12/07 [facility] Out[facility] Encounter [id number] 12/07 [facility] Encounter [id number] 12/07 [facility] [place] ([facility]) OFFICE O/P EST MOD 30 MIN [id number] Diagnos is: ICD-10- CM M54.50 Low back pain, unspeci fied KETRAVIS,JORDAN BARRERA M 12/08 [place] ([facility]) [facility] Encounter [id number] 12/11 [facility] Encounter [id number] 12/15 [facility] Encounter [id number] 12/20 [facility] Encounter [id number] 12/22 [facility] Encounter [id number] 12/22 [facility] Out[facility] Encounter [id number] 12/23 [facility] Out[facility] Encounter [id number] 12/26 [facility] Outpatient Encounter [id number] 01/06 [facility] En[facility] [id number] 01/15 [facility] Out[facility] Encounter [id number] 01/15 [facility] Out[facility] Encounter [id number] 01/15 [facility]counter [id number] 01/19 [facility] Out[facility] Encounter [id number] 01/20 [facility] Encounter [id number] 01/22 [facility] Encounter [id number] 01/23 [facility] Out[facility] Encounter [id number] 01/24 [facility] Out[facility] Encounter [id number] 01/25 [facility] Out[facility]counter [id number] 01/26 [facility] [place]UMIKO [place]al[place] ([facility]) OFFICE O/P EST MOD 30 MIN [id number] Diagnos is: ICD-10- CM M54.50 Low back pain, unspeci fied CYNTHIA,JORDAN AUGHN M 02/08 [place] ([facility]) [facility] (631GE) 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 15 MIN [id number] Diagnos is: ICD-10- CM Z51.81 Encount er for therape utic drug level monitor DMITRI Stewart ISLOBO F 02/09 [facility] (6[facility] Encounter [id number] 02/19 [facility] Encounter [id number] 02/20 [facility] [place] ([facility]) OFFICE O/P EST MOD 30 MIN [id number] Diagnos is: ICD-10- CM I48.91 Unspeci fied atrial fibrill atJORDAN LoredoSUSAN M 02/20 [place] ([facility]) [place] ([facility]) OFFICE O/P EST MOD 30 MIN [id number] Diagnos is: ICD-10- CM I10 Essenti al (primar y) hyperte nsJORDAN LoredoSUSAN M 03/07 [place] ([facility]) [facility] Out[facility] Encounter [id number] 03/07 [facility] Out[facility] Encounter [id number] 04/24 [facility] Encounter [id number] 04/25 [facility] Out[facility] Encounter [id number] 04/25 [facility] [place] ([facility]) OFFICE O/P EST LOW 20 MIN [id number] Diagnos is: ICD-10- CM L89.899 Pressur e ulcer of other site, unspeci fied stage JORDAN MARIE 05/02 [place] ([facility]) [facility] Out[facility] Encounter [id number]/[id number] [facility] Out[facility] Encounter [id number] [facility] QNHP OL DIG ASSMT&MGMT 5-10 [id number] Diagnos is: ICD-10- CM Z04.89 Encount er for examina tion and observa tion for oth reasons CUBA PACHECO TJ Thomas 08/20 [facility] NQHP OL DIG ASSMT&MGMT 5-10 [id number] Diagnos is: ICD-10- CM Z04.89 Encount er for examina tion and observa tion for oth reasons CUBA PACHECO TJ Thomas 09/24 [facility] NQHP OL DIG ASSMT&MGMT 5-10 [id number] Diagnos is: ICD-10- CM Z04.89 Encount er for examina tion and observa tion for oth reasons CUBA PACHECO TJ Thomas 10/25 [facility] HEARING AID REPAIR/MOD IFYING [id number] Diagnos is: ICD-10- CM Z46.1 Encount er for fitting and adjustm ent of hearing aid Aline TREADWELL 10/30 [facility] Out[facility] Encounter [id number] 11/30 [facility] Out[facility] Encounter [id number] 12/05 [facility] HEARING AID REPAIR/MOD IFYING [id number] Diagnos is: ICD-10- CM Z46.1 Encount er for fitting and adjustm ent of hearing aid SENIOR,VIDHYA OLE L 01/25 [facility] Outpatient Encounter [id number] 02/19 [facility] HEARING AID XM&SLCTN BINAURL [id number] Diagnos is: ICD-10- CM H90.3 Sensori neural hearing loss, bilater al Aline TREADWELL 04/18 [facility] Outpatient Encounter [id number] 04/18 [facility] Social History Combined list of available smoking, tobacco, and other social history from Department of Defense and Veterans Affairs facilities. Social History Type Response Date Comment Source Tobacco smoking status [facility] VA-TOBACCO FORMER USER 11/21/2023 [place] ([facility]) History of tobacco use [place]-TOBACCO QUIT 15 YRS OR MORE 11/21/2023 [place] ([facility]) History of tobacco use MI-TOBACCO QUIT 15 YRS OR MORE 01/24/2023 [facility] History of tobacco use MI-TOBACCO NEVER USED 08/04/2021 [facility] History of tobacco use MI-TOBACCO NEVER USED 03/21/2020 [facility] History of tobacco use MI-TOBACCO QUIT 15 YRS OR MORE 04/24/2019 [facility] History of tobacco use VA-TOBACCO QUIT 15 YRS OR MORE 06/15/2018 [facility] History of tobacco use QUIT TOBACCO USE > 7 YEARS AGO 10/10/2017 quit 30 years ago [facility] History of tobacco use QUIT TOBACCO USE > 7 YEARS AGO 02/14/[facility] History of tobacco use QUIT TOBACCO USE > 7 YEARS AGO 11/25/2015 quit > 30 yrs ago [facility] History of tobacco use HISTORY OF SMOKING 02/28/2013 quit 40 years ago [facility] [facility] History of tobacco use HISTORY OF SMOKING 03/22/2012 quit 40 years ago [facility] [place] [facility] History of tobacco use HISTORY OF SMOKING 03/24/2011 PT QUIT 43 [facility]RS A[facility] History of tobacco use HISTORY OF SMOKING 04/07/2010 quit 1970 [facility] History of tobacco use HISTORY OF SMOKING 02/10/2009 PT QUIT 41 YRS AGO. [facility] History of tobacco use LIFETIME NON-SMOKER 01/18/2008 [facility] History of tobacco use LIFETIME NON-SMOKER 12/05/2006 [facility] History of tobacco use LIFETIME NON-SMOKER 12/06/2005 [facility] History of tobacco use HISTORY OF SMOKING 12/16/2004 [facility] History of tobacco use HISTORY OF SMOKING 12/16/2003 stopped 30yrs aso [facility] History of tobacco use LIFETIME NON-SMOKER 11/23/2002 [facility] History of tobacco use HISTORY OF SMOKING 03/27/2001 [facility] Plan of Care List of future care activities from [facility] facilities. Additional future care activities may be listed in the Assessment and Plan section. Date/Time Care Activity Care Activity Detail Facili ty 05/15/2025 AMBULATORY - REHAB MEDICINE AMBULATORY - REHAB MEDICINE [facility] Advance Directives List of completed, amended, or rescinded Advance Directives on record at [facility] facilities. An actual copy of the Directive is not included. Date Advance Directive Provider Source 03/16/2023 ADVANCE DIRECTIVE AD[facility]IA [facility]
--- OUTSIDE RECORDS SUMMARY | 2025-05-08 06:40 | XMS_ITS | Patient Health Record ---
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 Problem Benign hypertension (77867314) Benign hypertension (I10) Active confirmed Encounters Encounter Location Date Provider Diagnosis [facility] [address] [place] [phone] 07/13/2024 Ba De La Cruz [facility] [address] [address] 07/13/2024 Ba De La Cruz Plan Of Treatment No Information Insurance Providers Payer Name Payer Address Payer Phone Subscriber Number Group Number Insured Name Patient Relationship to Insured Coverage Start Date Coverage End Date [address] [address] [phone] [id number] Dennis Brown Self - patient is the insured Medical (General) History Medical History History ICD Code Acquired absence of other specified part s of digestive tract Z90.49 Benign hypertension I10 HLD (hyperlipidemia) E78.5 salvage determiner (current) use of anticoagulant s Z79.01 Low back pain, unspecified M54.50 Other specified postprocedural states Z9 8.890 Atrial fibrillation 427.31
--- OUTSIDE RECORDS SUMMARY | 2025-05-08 06:40 | XMS_ITS | Patient Health Record ---
Author Organization [facility] [place] [facility] Address [address] [place] [address] Support Name Relationship Address Phone RUBY HORVATH Guarantor Unknown [phone] Allergies No Known Allergies Reason For Referral [...] W/U Status Risk Notes Problem Essential hypertension (02018512) Essential hypertension (I10) Active confirmed Problem Persistent atrial fibrillation (831910430) Persistent atrial fibrillation (I48.19) Active confirmed Problem Hypercholesterolemia (76221519) Hypercholesterolemia (E78.00) Active confirmed Plan Of Treatment No Information Insurance Providers Payer Name Payer Address Payer Phone Subscriber Number Group Number Insured Name Patient Relationship to Insured Coverage Start Date Coverage End Date [facility] [address] [place] [address] [id number] RUBY HORVATH Self - patient is the insured Safety Insurance [address] [address] [place] [address] [id number] RUBY HORVATH Self - patient is the insured Medical (General) History Medical History History ICD Code atrial fibrillation, hypertension, glauc dimas
[2025-05-08 07:41] LABS: Hematocrit 38.6 % (42.0-52.0); Hemoglobin 12.9 g/dl (14.0-18.0); Mean Corpuscular HGB Conc 33.4 g/dl (31.0-36.0); Mean Corpuscular Hemoglobin 30.8 pg (27.0-33.0); Mean Corpuscular Volume 92.1 fL (80.0-98.0); NRBC Abs Auto 0.000 X10*3/uL (0.0-0.012); NRBC Pct Auto 0.0 /100WBC (0.0-0.2); Platelet Count 221 X10*3/uL (160-400); Red Blood Count 4.19 X10*6/uL (4.60-5.80); White Blood Count 6.7 X10*3/uL (4.8-10.8)
[2025-05-08 08:24] LABS: Anion Gap 9 (12-20); Blood Urea Nitrogen 16 mg/dL (9-16); Calcium 8.6 mg/dL (8.4-10.2); Carbon Dioxide 25 mmol/L (22-29); Chloride 105 mmol/L (96-108); Cholesterol 94 mg/dL (<200); Estimated Glomerular Filt Rate > 60; HDL Cholesterol 32 mg/dL (>40); Potassium 4.1 mmol/L (3.3-5.1); Sodium 135 mmol/L (135-145); Triglycerides 61 mg/dL (<150)
[2025-05-08 08:38] LABS: Prostate Specific Antigen 19.34 ng/mL (<0.05-4.0)
== END 2025-05-08 06:38 | disposition home or self-care (01) ==
LOC: HO.HSH3W 06:37
PROVIDERS: Visit Provider Nurse Practitioner
DX: I10 Essential (primary) hypertension (principal); C61 Malignant neoplasm of prostate; E78.00 Pure hypercholesterolemia, unspecified; Z12.5 Encounter for screening for malignant neoplasm of prostate
CPT/HCPCS: 36415; 80048; 80061; 84153; 85027

== ENCOUNTER 2025-08-14 09:29 | Outpatient (AMB) | payer MEDICARE, SELFPAY ==
--- OUTSIDE RECORDS SUMMARY | 2025-08-14 10:22 | XMS_ITS | Clinical Summary ---
Author Organization [employer] Address [address] [place] [address] Care Team Providers Care Hose Inspector Name Role Phone Unavailable Primary Care Provider Unavailabl e Allergies No known active allergies Medications lactulose (Chronulac) 10 GM/15ML solution 10 g. 4 Active simvastatin (Zocor) 40 MG tablet 40 mg. 4 Active alendronate (Fosamax) 70 MG tablet 70 mg. 4 Active metoprolol succinate XL (Toprol-XL) 25 MG 24 hr tablet 25 mg. 4 Active Eliquis 2.5 MG tablet 4 Active cholecalciferol (Vitamin D-3) 25 MCG (1000 UT) capsule Take 1,000 Units by mouth Once per day. Active lisinopril 20 MG tablet 5 Active ondansetron (Zofran) 4 MG tablet 5 Active traMADol (Ultram) 50 MG tablet 5 Active Sodium Fluoride 1.1 % cream Apply 1 Tube to teeth Once per day. Active carboxymethylce llulose (Refresh Plus) 0.5 % ophthalmic solution Administer 1 drop into both eyes if needed in the morning, at noon, and at bedtime for dry eyes. Active acetaminophen (Tylenol) 325 MG tablet Take 650 mg by mouth every 4 (four) hours if needed for mild pain. Active guaiFENesin (Robitussin) 100 MG/5ML liquid Take 200 mg by mouth if needed in the morning, at noon, in the evening, and at bedtime for cough. Active lactulose (Chronulac) 10 GM/15ML solution Take 20 g by mouth 3 times daily. Active apixaban (Eliquis) 2.5 MG tablet Take 2.5 mg by mouth 2 times daily. Active Active Problems No known active problems Encounters Date Type Department Care Team Description 05/15/2025 9:00 AM EDT Office Visit [facility] [address] [place] [address] Fredy Soliz DMD from Last 3 Months Social History Tobacco [...] Care Team (Late st Contact Info) Description 08/21/2025 1:00 PM EST Office Visit [facility] [address] [place] [address] Mita Williamson [address] [place] [address] 08/28/2025 11:00 AM EST Office Visit [facility] [address] [place] [address] Fredy Soliz DMD [address] [place] [address] Health Maintenance Due Date Last Done Comments Depression Screening 1935 Lipid Panel 1937 SDOH Screening 1937 Alcohol/Substance Use Screening 1949 RSV Patients and Patients Aged 60 years or older (1 - 1-dose 75+ series) 2012 COVID-19 Vaccine ( season) 2025 08/19/2023, 04/14/2023, 08/02/2022, Additional history exists Influenza Vaccine (#1) 2025 , 08/02/2022, 07/01/2021, Additional history exists Dental X-Ray: Bitewings 11/01/2025 10/31/2024 Dental Oral Exam 11/02/2025 05/01/2025, 10/31/2024 Dental Prophylaxis 11/09/2025 05/08/2025, 01/15/2025 Tobacco Screening 05/15/2026 05/15/2025 Dental X-Ray: Full Mouth 11/01/2027 10/31/2024 DTaP/Tdap/Td [...] Procedure Name Priority Date/Time Associated Diagnosis Comments NO CHARGE VISIT Routine 05/15/2025 9:00 AM EDT PROPHYLAXIS - ADULT Routine 05/08/2025 1 1:15 AM EDT Dental calculus Dental plaque PERIODIC ORAL EVALUATION - ESTABLISHED PATIENT Routine 05/01/2025 10:30 AM EDT INTRAORAL - COMPLETE SERIES OF RADIOGRAPHIC IMAGES Routine 10/31/2024 11:00 AM EST from Last 3 Months or Most Recently Relevant to Health Maintenance
--- NOTE | 2025-08-14 10:50 | A.OFFVIS_ITS ---
Intake Visit Reasons: New Patient- elevated PSA 19.34 Intake Note: Patient is present for NW PATIENT/ELEVATED PSA-19.34 Urology Medication:none Antibiotic Allergy:none Blood Thinner:apixaban Race Engine Builder Required: No Allergies No Known Allergies Allergy (Verified 08/14/25 20:15) Medication List - Last Reconciled 08/14/25 by MIN Sepulveda-RAJINDER acetaminophen 650 mg PO Q4H PRN alendronate 70 mg PO QWEEK apixaban (Eliquis) 2.5 mg PO BID [flouride Prevident] guaifenesin 200 mg PO Q4H PRN lactulose 15 mL PO DAILY PRN lisinopril 20 mg PO DAILY metoprolol succinate ER 25 mg PO DAILY pseudoephedrine-guaifenesin 30-100 mg/5 mL 10 mL PO Q4-6H PRN simvastatin 20 mg PO DAILY tramadol mg PO HPI Comments Details: Dennis is a very pleasant 89-year-old male patient of Dr. Davison. He has a past medical history of atrial fibrillation, hypertension, age-related osteoporosis, low-back pain, hyperlipidemia, macular degeneration, and prostate cancer. [facility] is being [facility] patient for an elevated PSA in the setting of a history of prostate cancer. In discussion with the patient today he reports a previous history of prostate cancer and underwent radiation in the past however does not recall how long ago this was. In review of patient's medical records it appears prior to his admission at the [facility] he had been following up with his primary care Dr. Leon in his PSA was noted to be elevated however he did not wish to proceed with any treatment options at this time however patient's son/healthcare proxy was invoked and patient's son with like further treatment options. In discussion with the patient today he does report intermittent episodes of dysuria he otherwise denies urinary urgency, urinary frequency, incontinence, nocturia, hematuria, foul smelling urine, changes to urinary stream, flank pain, fever, and or chills. He is happy with his current voiding parameters. JORDON was attempted however given patient's increase pressure of rectal tone I was unable to fully insert my digit and therefore JORDON was completed. I did review in discussed further treatment options of elevated PSA in the previous setting of prostate cancer. I discussed trial of dutasteride verses initiation of hormone therapy versus surveillance monitoring. Risks and benefits of these interventions were discussed. All questions were answered. He otherwise offers no other issues or concerns at this time. In review of patient's medical records it appears Adenocarcinoma of prostate: Have been following with Dr. Braxton previously PSA had been ranging around 9. At some point did not feel he needed further follow-up but has not had PSA tested in some time. Patient had declined any further workup or follow-up. Had radiation therapy in [place] a proximally 1999 PSAs: 05/05 19.7, 05/06 19.3. 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 Prostate cancer Macular degeneration Hyperlipidemia Osteoporosis Hypertension Atrial fibrillation with RVR Social History Household Members: Other Household Members Other:: [facility] Alcohol intake: current Patient Tobacco Use Status: Former Tobacco user Second Hand Smoke Exposure: No service: Yes Review of Systems Const All systems reviewed & are unremarkable except as noted in HPI and below Physical Exam Const General: cooperative, healthy appearing, comfortable, no acute distress, well developed, alert and awake Orientation/consciousness: patient oriented x3 HEENT Head: Yes normal to inspection Eyes General: appearance normal, both eyes and all related structures Neck Neck: Yes normal visual inspection Chest Chest palpation & inspection: normal inspection of the chest Resp Effort & Inspection: normal respiratory effort and able to speak in complete sentences Cardio Rate: regular rate GI Inspection: Yes normal to inspection General: Yes Bimanual renal exam normal bilaterally and Yes no CVA tenderness Back/Spine/Pelvis Back: no CVA tenderness Skin General skin exam: no rashes or lesions noted Neuro General: patient oriented x3 Extrem General: Yes normal to inspection Psych Appearance: grossly normal and well kempt Speech and movement: Clear speech present Affect: normal affect Attitude: cooperative Thought process: Normal thought process present Thought content: Normal thought content present Insight: Fair insight present (Psych) Judgement: Fair judgement present (Psych) Assessment & Plan Assessment & Plan (1) Elevated PSA, between 10 and less than 20 ng/ml: Code(s): R97.20 - Elevated prostate specific antigen [PSA] Category: Medical (2) Prostate cancer: Code(s): C61 - Malignant neoplasm of prostate Category: Medical (3) Dysuria: Code(s): R30.0 - Dysuria Category: Medical Plan Recent PSA results reviewed with the patient today; as noted above. Medical records were reviewed; as noted above. We did discuss potential for reoccurrence given elevated PSA in the setting of prostate cancer; we did discussed further treatment options and risks and benefits of these treatment options. We discussed initiation of hormonal therapy verses dutasteride versus bicalutamide versus surveillance monitoring. All questions were answered. We did discussed obtaining urinalysis given patient reporting intermittent episodes of dysuria. Unable to perform JORDON however attempted. If initiation of dutasteride or bicalutamide is started reassess PSA in 4-6 months. If patient/family wishes to proceed with hormonal therapy please call office to make appointment. Will await follow-up depending on treatment plan. Patient Instructions: The patient had an opportunity to ask questions regarding the treatment plan. All questions were answered. Physical exam, labs, and imaging were discussed and reviewed in detail. As well as risks, benefits, and discussion of treatment choices. No major barriers to understanding were identified. The patient expressed understanding and agreement with the above treatment plan. The patient was made aware they should contact our office by phone for worsening of their current condition, the appearance of new symptoms, or with any questions or concerns. Compliance is encouraged with any medications and follow up testing that is ordered. It is a privilege to be allowed the opportunity to participate in? your urological care.? Again, if you have any questions or concerns If you have any questions or concerns please do not hesitate to contact me. The office is [phone]. This note is constructed using voice recognition software. While every effort has been made to ensure accuracy record press supervisor errors may have been included. Yours sincerely, HERNANDEZ Sepulveda Coding Level of Care Code New Pt Level 4 (91462) Diagnoses Elevated PSA, between 10 and less than 20 ng/ml R97.20 Prostate cancer C61 Dysuria R30.0
== END 2025-08-14 16:30 | disposition home or self-care (01) ==
LOC: HO.HUSV 09:29
PROVIDERS: PCP Internal Medicine Medical Oncology; Visit Provider Nurse Practitioner Family
DX: R97.20 Elevated prostate specific antigen [PSA] (principal); C61 Malignant neoplasm of prostate; R30.0 Dysuria
CPT/HCPCS: 99202; 99204